=== PATIENT | female | born 1965 | race Caucasian/White ===

== ENCOUNTER → 2017-11-07 | Day surgery (SDC) | payer BC ==
[2017-11-06 12:11] LABS: BASOPHILS % 0.4 % (0.0-1.0); EOSINOPHILS # (AUTO) 0.2 (0.0-0.4); EOSINOPHILS % 2.8 % (0.0-6.0); HEMATOCRIT 40.5 % (34.2-44.1); HEMOGLOBIN 13.1 g/dL (12.0-16.0); LYMPHOCYTES # (AUTO) 0.9 (1.0-3.2); LYMPHOCYTES % 13.7 % (18.0-39.1); MEAN CORPUSCULAR HEMOGLOBIN 28.5 pg (28-32); MEAN CORPUSCULAR HGB CONC 32.3 g/dL (31-35); MEAN CORPUSCULAR VOLUME 88.2 fL (81-99); MONOCYTES # (AUTO) 0.9 (0.2-0.8); MONOCYTES % 13.8 % (4.4-11.3); NEUTROPHILS # (AUTO) 4.7 (2.1-6.9); PLATELET COUNT 319 x10e3/uL (140-360); RED BLOOD COUNT 4.59 x10e6/uL (3.6-5.1); RED CELL DISTRIBUTION WIDTH 14.6 % (11.7-14.4)
[2017-11-06 14:35] LABS: EOSINOPHILS % (MANUAL) 4 % (0-7); HOWELL-JOLLY BODIES FEW; LYMPHOCYTES % (MANUAL) 10 % (19-48); MONOCYTES % (MANUAL) 13 % (3.4-9.0); NEUTROPHILS % (MANUAL) 70 % (40-74); PLATELET ESTIMATE ADEQUATE; PLATELET MORPHOLOGY COMMENT NORMAL; RBC MORPHOLOGY COMMENT NORMAL
[~2017-11-07] MED LIST: AMLODIPINE BESY10 MG PO; AMLODIPINE BESYL5 MG PO; BYSTOLIC10 MG PO; BYSTOLIC20 MG PO; COLESTIPOL HCL1 GM PO; DEXILANT60 MG PO; EFFEXOR XR 3737.5 MG PO; ELESTRIN144 GM; ESGIC PLUS; EVAMIST8.1 ML; FENTANYL CITRATE/PF 100MCG/2 ML INJ ONE; FERRAPLUS 90 T1 EACH PO; FLUTICASONE PRO16 GM; GABAPENTIN100 MG PO; HYOSCYAMINE SULFATE 0.5 MG/ML AMP ONE; HYOSCYAMINE0.125 M2; KLONOPIN0.5 MG PO; LAMOTRIGINE100 MG PO; LAMOTRIGINE200 MG PO; LEVAQUIN500 MG PO; LISINOPRIL10 MG PO; LOMOTIL TABLET1 EACH PO; MELATONIN1 MG PO; METFORMIN HCL850 MG PO; METOPROLOL TART50 MG PO; MIDAZOLAM HCL 2 MG/2 ML VIAL ONE; MONTELUKAST SOD10 MG PO; MULTI-VITAMIN1 EACH PO; NASONEX17 GM; NORVASC5 MG PO; ONDANSETRON HCL8 MG PO; PANTOPRAZOLE SO40 MG PO; PRILOSEC OTC20 MG PO; PRINIVIL20 MG PO; PRO AIR PO; PROPOFOL IV EMULSION 10 MG/ML 20 ML VIAL ONE; RANITIDINE HCL150 M1 PO; SEROQUEL25 MG PO; SEROQUEL50 MG PO; SUCRALFATE1 GM PO; SYNTHROID25 MCG PO; TRAZODONE HCL50 MG PO; TRICOR145 MG PO; TRILIPIX135 MG PO; UNKNOWN BP MED PO; VENLAFAXINE H37.5 M1 PO; VENLAFAXINE HCL75 M1 PO; Z DEPAKOTE PO; Z.0.AMBIEN10 MG; Z.0.ATIVAN0.5 MG PO; Z.0.ATIVAN1 MG PO; Z.0.BENICAR HCT 201; Z.0.CRESTOR20 MG; Z.0.PROZAC20 MG; Z.0.TRILIPIX135 MG; ZOCOR20 MG PO; ZOFRAN ODT4 MG SL
--- NOTE | 2017-11-07 18:00 | Operative Report ---
DATE OF PROCEDURE: November 07, 2017 REFERRING PHYSICIAN: Dr. Sulema Delgado. PROCEDURE PERFORMED: 1. Esophagogastroduodenoscopy with esophageal dilatation and biopsies. 2. Colonoscopy with biopsies. INDICATIONS FOR ESOPHAGOGASTRODUODENOSCOPY: Dysphagia to solids, excessive belching, bloating. INDICATIONS FOR COLONOSCOPY: Colorectal cancer screening, personal history of colon polyps, change of bowel habits, history of bright red blood per rectum. MEDICATION: Patient was done under MAC. Please see anesthesiologist's note. PROCEDURE: With the patient in the left lateral decubitus position, the flexible fiberoptic Olympus gastroscope was introduced into the esophagus under direct visualization without any difficulty. There was some patchy erythema noted in the distal esophagus. There was a mild stricture noted at the GE junction, and that was dilated to size 52-Syriac Yu. An approximately 6 mm ulcerated polypoid lesion was noted in the hiatal hernia sac, and that was biopsied. The scope was then advanced with ease into the stomach, traversing a small sliding hiatal hernia. Mucosa overlying the antrum and the body revealed some diffuse erythema and moderate edema, and biopsies were obtained and sent to stain for H. pylori. Hyperplastic-appearing polyps were noted in the body of the stomach, and some were partially excised with the cold biopsy forceps. An approximately 5 mm peripyloric nodule was noted, and that was biopsied. The pylorus was intubated with ease, and the scope was advanced all the way to the 2nd portion of the duodenum. The scope was then withdrawn slowly. Mucosa overlying the proximal 2nd portion and the duodenal bulb appeared to be within normal limits. The scope was then withdrawn back into the stomach and retroflexed, and the mucosa overlying the fundus and the cardia appeared to be within normal limits. The scope was then straightened out. The stomach was decompressed. The scope was subsequently withdrawn. Patient tolerated the procedure well. IMPRESSION: 1. Distal esophagitis. 2. Esophageal stricture at gastroesophageal junction dilated to size 52-Syriac Yu. 3. Ulcerated polypoid lesion approximately 6 mm in size in the hiatal hernia sac, biopsied. 4. Small hiatal hernia. 5. Gastritis, biopsied. Biopsies sent to stain for H. pylori. 6. Gastric polyps, body, hyperplastic-appearing, some partially excised with the cold biopsy forceps. 7. Peripyloric nodule approximately 5 mm in size, biopsied. PLAN: Follow up histology. Increase Protonix to 1 p.o. a.c. b.i.d. and will consider adding Carafate if patient remains symptomatic. Patient was then turned around and after adequate lubrication of the anal canal, a flexible fiberoptic Olympus colonoscope was inserted into the rectum with ease and advanced all the way to the cecum. The mucosa overlying the cecum, ascending and transverse grossly appeared to be within normal limits. There were some mild patchy inflammatory changes noted in the left colon. Random biopsies were obtained. Similar findings were noted in the rectum, and also biopsies were obtained. The scope was then retroflexed into the distal rectum and moderate-sized internal hemorrhoids were noted, none of which was actively bleeding. The scope was then straightened out. It was subsequently withdrawn, and patient tolerated procedure well. A small rectocele was noted on rectal exam. IMPRESSION: 1. Mild patchy left-sided colitis. 2. Proctitis, mild. 3. Internal hemorrhoids, none actively bleeding. 4. Small rectocele. PLAN: Follow up histology. Initiate Flagyl 500 mg 1 p.o. q.i.d. times 14 days. Start VSL#3 one p.o. b.i.d. Patient might benefit from a followup colonoscopy in 5 years. Job#: [id number] EV cc:SULEMA DELGADO DO
== END | disposition home or self-care (01) ==
LOC: OR 12:45
PROVIDERS: ATTEND Internal Medicine Gastroenterology
DX: K22.2 Esophageal obstruction (principal); K31.7 Polyp of stomach and duodenum; K29.70 Gastritis, unspecified, without bleeding; K25.9 Gastric ulcer, unspecified as acute or chronic, without hemorrhage or perforation; K21.0 Gastro-esophageal reflux disease with esophagitis; K44.9 Diaphragmatic hernia without obstruction or gangrene; K31.89 Other diseases of stomach and duodenum; K51.50 Left sided colitis without complications; K62.89 Other specified diseases of anus and rectum; K64.8 Other hemorrhoids; N81.6 Rectocele; E11.22 Type 2 diabetes mellitus with diabetic chronic kidney disease; I12.9 Hypertensive chronic kidney disease with stage 1 through stage 4 chronic kidney disease, or unspecified chronic kidney disease; N18.9 Chronic kidney disease, unspecified; G47.33 Obstructive sleep apnea (adult) (pediatric); F31.9 Bipolar disorder, unspecified; F41.0 Panic disorder [episodic paroxysmal anxiety]; Z01.810 Encounter for preprocedural cardiovascular examination; Z01.812 Encounter for preprocedural laboratory examination; Z68.27 Body mass index [BMI] 27.0-27.9, adult
CPT/HCPCS: 36415 ×2; 43239; 43450; 45380; 82948; 85025; 93005; J1980; J2250

== ENCOUNTER 2018-03-22 12:06 | Inpatient (IN) | payer BC ==
[~2018-03-22] VITALS: Ht 167.6 cm; Wt 74.8 kg
[~2018-03-22 12:06] MED LIST changes: -FENTANYL CITRATE/PF 100MCG/2 ML INJ ONE; -HYOSCYAMINE SULFATE 0.5 MG/ML AMP ONE; -MIDAZOLAM HCL 2 MG/2 ML VIAL ONE; -PROPOFOL IV EMULSION 10 MG/ML 20 ML VIAL ONE
[2018-03-22] MEDS ORDERED: SODIUM CHLORIDE 0.9% 1000ML 1,000 ML IV STA (12:17)
[2018-03-22] MEDS ORDERED: ASPIRIN 81 MG CHEW TAB PO ONE (12:30)
[2018-03-22 12:38] LABS: BASOPHILS % 0.5 % (0.0-1.0); EOSINOPHILS # (AUTO) 0.2 (0.0-0.4); EOSINOPHILS % 3.2 % (0.0-6.0); HEMATOCRIT 43.4 % (34.2-44.1); HEMOGLOBIN 14.4 g/dL (12.0-16.0); LYMPHOCYTES % 34.4 % (18.0-39.1); MEAN CORPUSCULAR HEMOGLOBIN 28.9 pg (28-32); MEAN CORPUSCULAR HGB CONC 33.2 g/dL (31-35); MEAN CORPUSCULAR VOLUME 87.1 fL (81-99); MONOCYTES # (AUTO) 0.4 (0.2-0.8); MONOCYTES % 7.8 % (4.4-11.3); NEUTROPHILS # (AUTO) 3.1 (2.1-6.9); NEUTROPHILS % 53.7 % (38.7-80.0); PLATELET COUNT 346 x10e3/uL (140-360); RED BLOOD COUNT 4.98 x10e6/uL (3.6-5.1); RED CELL DISTRIBUTION WIDTH 13.1 % (11.7-14.4)
[2018-03-22 12:42] LABS: INR 0.93; PARTIAL THROMBOPLASTIN TIME 29.8 seconds (23.8-35.5); PROTHROMBIN TIME 11.7 seconds (11.9-14.5)
--- NOTE | 2018-03-22 12:44 | Diagnostic Imaging Report ---
PROCEDURE: CHEST SINGLE (PORTABLE) COMPARISON: 06/16/2016. INDICATIONS: HYPERTENSION FINDINGS: The lungs are well-inflated. No focal airspace consolidation, pleural effusion, or pneumothorax. Tortuous thoracic aorta with otherwise normal cardiomediastinal contour when accounting for portable, AP technique. No acute osseous abnormality. CONCLUSION: No acute cardiopulmonary abnormality. Dictated by: Chucky Child M.D. on 03/22/2018 at 12:48 Electronically approved by: Chucky Child M.D. on 03/22/2018 at 12:48
[2018-03-22 12:50] LABS: ALANINE AMINOTRANSFERASE 27 IU/L (0-55); ALBUMIN 4.8 g/dL (3.5-5.0); ALBUMIN/GLOBULIN RATIO 1.1 (0.8-2.0); ALKALINE PHOSPHATASE 179 IU/L (40-150); ANION GAP 16.2 mmol/L (8-16); BLOOD UREA NITROGEN 19 mg/dL (7-26); BUN/CREATININE RATIO 20 (6-25); CARBON DIOXIDE 27 mmol/L (22-29); CHLORIDE 103 mmol/L (98-107); CREATINE KINASE 75 IU/L (29-168); CREATININE, SERUM 0.95 mg/dL (0.57-1.11); EST GLOMERULAR FILTRATION RATE > 60 ML/MIN (60-); GLUCOSE 112 mg/dL (74-118); MAGNESIUM 2.1 MG/DL (1.3-2.1); POTASSIUM 4.2 mmol/L (3.5-5.1); SODIUM 142 mmol/L (136-145)
[2018-03-22] MEDS ORDERED: HYDRALAZINE HCL 20 MG/ML VIAL IV ONE (13:00)
--- NOTE | 2018-03-22 13:14 | Diagnostic Imaging Report ---
Examination: CT BRAIN WITHOUT CONTRAST History:Syncope. Comparison studies:Head CT performed July 06, 2014. Technique: Axial images were obtained from the skull base to the vertex. Coronal and sagittal images reconstructed from the axial data. Intravenous contrast: None Findings: Scalp: No abnormalities. Bones: No fractures, blastic or lytic lesions. Brain sulci: Appropriate for age. Ventricles: Normal in size and configuration. No hydrocephalus. Extra-axial space: No abnormalities. Parenchyma: No abnormal densities. No masses, hemorrhage, or acute or chronic cortical based vascular insults. Sellar/suprasellar region: No abnormalities. Craniocervical junction: Patent foramen magnum. No Chiari one malformation. Incidental findings: Atherosclerotic calcification of the cavernous and supraclinoid internal carotid arteries. Impression: No new or acute intracranial abnormalities. No change from July 06, 2014. Signed by: Dr. Kalyani Enrique M.D. on 03/22/2018 1:10 PM
[2018-03-22 14:25] LABS: BILIRUBIN,URINE NEGATIVE (NEGATIVE); CLARITY,URINE CLEAR (CLEAR); COLOR,URINE YELLOW (YELLOW); KETONES,URINE NEGATIVE (NEGATIVE); LEUKOCYTE ESTERASE ,URINE NEGATIVE (NEGATIVE); NITRITE,URINE NEGATIVE (NEGATIVE); PROTEIN,URINE DIPSTICK 2+ (NEGATIVE); URINE UROBILINOGEN 0.2 mg/dL (0.2 - 1)
[2018-03-22 14:44] LABS: EPITHELIAL CELLS,URINE FEW /LPF; RBC,URINE 0-5 /HPF (0-5)
[2018-03-22 16:06] VITALS: BP 197/93
[2018-03-22] MEDS ORDERED: HYDRALAZINE HCL 25 MG TAB PO PRN (18:00)
[2018-03-22] MEDS: VALSARTAN 160 MG TAB PO SCH (18:40)
[2018-03-22] MEDS: AMLODIPINE BESYLATE 10 MG TAB PO SCH (18:40)
[2018-03-22] MEDS: HYDROCHLOROTHIAZIDE 25 MG TAB PO SCH (18:41)
[2018-03-22 19:45] VITALS: BP 185/96
[2018-03-22 20:41] VITALS: BP 185/96
[2018-03-22] MEDS: ONDANSETRON HCL INJ 2 MG/ML VIAL IV PRN (21:44)
[2018-03-22 22:18] LABS: CREATINE KINASE 71 IU/L (29-168)
--- NOTE | 2018-03-22 23:35 | Consultation ---
DATE OF CONSULTATION: March 22, 2018 CARDIOLOGY CONSULTATION TIME: 5:04 p.m. CHIEF COMPLAINT 1. Dizziness and passing out. 2. High blood pressure. HPI: Ms. Funk is a 52-year-old female that is well known to our service and has seen us in clinic previously. She has had poorly controlled hypertension for a long time as well as several psychiatric disorders which are being treated with medications. She presented today to the office for outpatient chemical nuclear stress test. However, prior to administration of the test, while she was getting her IV placed, patient reported feeling dizzy and having numbness and tingling in her arms and not feeling well in general. Upon further investigation, patient was found to be taking valsartan, losartan, and lisinopril all at once at home for her blood pressure. Her blood pressure at the time was above 200 systolic in the clinic. Given all these findings, patient was sent to the ER for further evaluation and laboratory tests. Today, upon interview, patient says she feels a little bit better. Her dizziness has improved though not completely resolved. She still intermittently has some tingling in her arms. She also reports dry cough which she has had now for several months. She denies any fevers, chills, or any nakita syncopal episodes prior to today. Denies any palpitations, chest pain, or any other cardiac findings at this time. PAST MEDICAL HISTORY 1. Poorly controlled hypertension. 2. Chronic kidney disease. 3. Seizure disorder. 4. Anxiety and depression. PAST SURGICAL HISTORY: No significant past surgical history. FAMILY HISTORY: No family history of early cardiovascular disease or early coronary artery disease. SOCIAL HISTORY: Patient currently denies any smoking, drinking, or illicit drug use. ALLERGIES: PATIENT HAS SEVERAL ALLERGIES INCLUDING BARIUM, SULFA, CIPRO, CODEINE, IODINE, TRAMADOL, LETTUCE AND PEANUT BUTTER. MEDICATIONS: Cardiovascular medications: Patient was noted to be taking valsartan 160 mg daily, losartan 100 mg daily, lisinopril 40 mg daily, Bystolic 5 mg daily, amlodipine 5 mg daily as an outpatient in addition to her psychiatric meds, supplements, and thyroid medications. REVIEW OF SYSTEMS: Complete 10-point review of systems was done and is negative other than what is mentioned in the HPI. PHYSICAL EXAMINATION VITAL SIGNS: Temperature 97.9, heart rate 52, respiratory rate 18, blood pressure 212/111, oxygen saturation 100% on room air. GENERAL: Patient is alert and oriented, in no apparent distress. CARDIOVASCULAR: Regular rate and rhythm. Normal S1 and S2. No murmurs, rubs, or gallops heard. Patient has no bruits bilaterally and has palpable pulses that are equal in bilateral arms as well as legs. There is trace pitting edema at the ankle. ABDOMEN: Soft, nontender, and nondistended. EXTREMITIES: As mentioned previously, there is only trace pitting edema at the ankles and equal and palpable pulses in bilateral wrists as well as bilateral ankles. LABS: White count 5.6, hemoglobin 14.4, and platelet count 346,000. Chemistry: Sodium 142, potassium 4.2, chloride 103 with carbon dioxide of 27, BUN 19, creatinine 0.95, calcium 11, and magnesium 2.1. Total bilirubin 0.5. AST 29, ALT 27, alkaline phosphatase 179. CK 75, CK-MB 1, troponin 0.05. BNP 71.7. Total protein 9, albumin 4.8. IMAGING: A head CT was done which was within normal limits. No acute abnormalities. Chest x-ray showed no significant cardiopulmonary abnormalities. ASSESSMENT 1. Hypertensive urgency. 2. Presyncope. PLAN: Patient has had normal echo done recently in the office and has otherwise normal cardiovascular exam. For her hypertensive urgency, recommend starting the following medications 1. Amlodipine 10 mg daily starting now. 2. Hydrochlorothiazide 25 mg daily starting now. 3. We will continue just valsartan 160 mg daily. Patient is noted to be hypercalcemic to 11 with high alkaline phosphatase and a high protein gap. Consider checking for multiple myeloma and treating the hypercalcemia as the potential underlying cause for her hypertension. Recommend consultation by renal or endocrine to address this issue, but this can be worked up as an outpatient as long as patient's blood pressure is well controlled. Job#: [id number] CF
[2018-03-23 00:44] VITALS: BP 184/86
[2018-03-23] MEDS ORDERED: HYDRALAZINE HCL 20 MG/ML VIAL IV PRN (00:45)
[2018-03-23] MEDS ORDERED: LABETALOL HCL 5 MG/ML 20ML VIAL IV PRN (01:15)
[2018-03-23] MEDS: ONDANSETRON HCL INJ 2 MG/ML VIAL IV PRN ×3 (01:29→23:00)
[2018-03-23 04:15] VITALS: BP 166/73
[2018-03-23 06:14] LABS: BASOPHILS % 0.2 % (0.0-1.0); HEMOGLOBIN 13.9 g/dL (12.0-16.0); LYMPHOCYTES # (AUTO) 1.1 (1.0-3.2); LYMPHOCYTES % 9.7 % (18.0-39.1); MEAN CORPUSCULAR HEMOGLOBIN 29.1 pg (28-32); MEAN CORPUSCULAR HGB CONC 33.1 g/dL (31-35); MEAN CORPUSCULAR VOLUME 87.9 fL (81-99); MONOCYTES # (AUTO) 0.6 (0.2-0.8); MONOCYTES % 5.4 % (4.4-11.3); NEUTROPHILS # (AUTO) 9.1 (2.1-6.9); NEUTROPHILS % 84.4 % (38.7-80.0); PLATELET COUNT 392 x10e3/uL (140-360); RED BLOOD COUNT 4.78 x10e6/uL (3.6-5.1); RED CELL DISTRIBUTION WIDTH 13.4 % (11.7-14.4)
[2018-03-23 06:58] LABS: ALBUMIN 4.3 g/dL (3.5-5.0); ALBUMIN/GLOBULIN RATIO 1.1 (0.8-2.0); ANION GAP 17.4 mmol/L (8-16); CALCIUM 10.5 mg/dL (8.4-10.2); CHOL/HDL RATIO 3.8 (3.0-3.6); CREATININE, SERUM 1.11 mg/dL (0.57-1.11); POTASSIUM 4.4 mmol/L (3.5-5.1)
[2018-03-23] MEDS ORDERED: ACETAMINOPHEN 325 MG TAB PO PRN (07:45)
[2018-03-23 08:07] VITALS: BP 178/86
[2018-03-23] MEDS: VALSARTAN 160 MG TAB PO SCH ×2 (09:05→17:08)
[2018-03-23] MEDS: HYDROCHLOROTHIAZIDE 25 MG TAB PO SCH (09:05)
[2018-03-23] MEDS: ASPIRIN 325 MG TAB EC PO SCH (09:05)
[2018-03-23] MEDS: AMLODIPINE BESYLATE 10 MG TAB PO SCH (09:05)
[2018-03-23 12:06] VITALS: BP 168/97
--- NOTE | 2018-03-23 14:57 | Progress Note ---
DATE: March 23, 2018 CARDIOLOGY PROGRESS NOTE SUBJECTIVE: Patient is awake and alert. Overall, feeling well. Overnight, reports feeling unwell and having an upset stomach. This morning this has improved. She was able to eat her breakfast and lunch without issues. She denies any further chest pain or syncopal episodes overnight. Her blood pressure has improved to 160-170 systolic this morning after taking her medications. PHYSICAL EXAMINATION VITAL SIGNS: Temperature 97.7, pulse 67, respiratory rate 18, blood pressure 168/97, pulse oximetry 100% on room air. GENERAL: Awake and alert, and in no acute distress. CARDIOVASCULAR: Regular rate and rhythm. No murmurs, rubs or gallops. ABDOMEN: Soft, nontender and nondistended. EXTREMITIES: Palpable pulses bilaterally. No significant edema. LABS: Chemistry: Sodium 139, potassium 4.4, chloride 100, CO2 26, BUN 21, creatinine 1.1, glucose 145. Calcium 10.5. CK 117, CK-MB fraction 2 and troponin remains negative at 0.002. Hematology: White blood cell count of 10.7, hemoglobin 13.9 and platelet count is 392,000. MEDICATIONS 1. Aspirin 325 mg daily. 2. Hydrochlorothiazide 25 mg daily. 3. Valsartan 160 mg daily. 4. Amlodipine 10 mg daily. 5. Hydralazine 25 mg p.o. q.6 h. p.r.n. for high blood pressure. 6. Labetalol 10 mg IV q.6 h. p.r.n. for high blood pressure. IMAGING: No new imaging to review today. ASSESSMENT AND PLAN 1. Presyncope. 2. Bradycardia. 3. Hypertensive urgency. 4. Chest pain. PLAN: Overnight, the patient's symptoms have significantly improved. She no longer reports having any presyncopal symptoms. Her head CT was negative. Her blood pressure has improved significantly to 160-170 systolic on her current medical regimen, and should continue to improve once the medications are taken on a regular basis. Discussed options for evaluation of her chest pain with the patient. Patient says that due to her symptoms of feeling very anxious and feeling like she is going to pass out, she does not want to undergo a chemical stress test. She is unable to undergo exercise stress test. Would like to consider cardiac catheterization for evaluation of her chest pain as an outpatient. We will plan to see her in the office for blood pressure check and discussion regarding outpatient cardiac catheterization next week. Patient is agreeable with this plan. From a cardiology standpoint, we are okay to discharge the patient. Job#: [id number] BRYAN
[2018-03-23] MEDS ORDERED: AMLODIPINE BESY10 MG PO (15:53)
[2018-03-23] MEDS ORDERED: HYDROCHLOROTHIA25 MG (15:54)
[2018-03-23] MEDS ORDERED: DIOVAN160 MG PO (15:54)
[2018-03-23 16:14] VITALS: BP 159/74
[2018-03-23] MEDS ORDERED: VALSARTAN 160 MG TAB PO SCH (17:00)
[2018-03-23 20:28] VITALS: BP 179/85
[2018-03-23] MEDS ORDERED: CLONAZEPAM0.5 MG SL (21:36)
[2018-03-23] MEDS ORDERED: LAMOTRIGINE 100 MG TAB PO ONE (23:00)
[2018-03-23] MEDS ORDERED: QUETIAPINE FUMARATE 25 MG TAB PO SCH (23:00)
[2018-03-23] MEDS ORDERED: VENLAFAXINE HCL 37.5MG XR CAP PO ONE (23:30)
[2018-03-24] VITALS (8 sets, daily range): BP systolic 103–179; BP diastolic 54–85
[2018-03-24] MEDS: VALSARTAN 160 MG TAB PO SCH ×2 (09:00→17:00)
[2018-03-24] MEDS ORDERED: VENLAFAXINE HCL 37.5MG XR CAP PO SCH (09:00)
[2018-03-24] MEDS: AMLODIPINE BESYLATE 10 MG TAB PO SCH (09:00)
[2018-03-24] MEDS: ASPIRIN 325 MG TAB EC PO SCH (09:12)
[2018-03-24] MEDS: LAMOTRIGINE 100 MG TAB PO SCH ×2 (09:12→18:03)
[2018-03-24] MEDS: HYDROCHLOROTHIAZIDE 25 MG TAB PO SCH (09:12)
--- NOTE | 2018-03-24 13:59 | Progress Note ---
DATE: March 24, 2018 CARDIOLOGY PROGRESS NOTE SUBJECTIVE AND OVERNIGHT EVENTS: The patient requested to stay in the hospital 1 more day due to her abdominal discomfort and just overall feeling unwell, as well as some neurological symptoms. Overnight, she did well with no major events. Has no major complaints this morning, and says she is feeling much better and is ready to go home today. She denies having any further chest pain, presyncope or dizziness this morning. REVIEW OF SYSTEMS: As above, otherwise negative. PHYSICAL EXAMINATION VITAL SIGNS: Temperature 96.5, pulse rate 59, respiratory rate 18, blood pressure 125/60 with oxygen saturation of 97% on room air. GENERAL: She is well-developed, well-nourished, obese. CARDIOVASCULAR: She has a normal nondisplaced PMI. Regular S1 and S2. No murmurs, rubs or gallops. She has normal bilateral carotid pulses. Palpable femoral pulses. Palpable pedal pulses. No significant peripheral edema or varicosities. RESPIRATORY: She is in no respiratory distress. Her lungs are clear to auscultation bilaterally. ABDOMEN: Soft, nontender and nondistended. There are no masses or hepatosplenomegaly. NEURO/PSYCH: The patient is alert and oriented to person, place and time, and displays a normal affect. CARDIOVASCULAR MEDICATIONS 1. Aspirin 81 mg daily. 2. Valsartan 160 mg twice a day. 3. Hydrochlorothiazide 25 mg daily. 4. Amlodipine 10 mg daily. LAB DATA: There is no new lab data to review today. IMAGING: No new imaging data to review today. Telemetry is normal sinus rhythm with no new telemetry findings today. ASSESSMENT AND PLAN 1. Presyncope. 2. Bradycardia. 3. Hypertensive urgency. 4. Chest pain. PLAN: Her blood pressure is now much better controlled on the current regimen. She is essentially normotensive. Her chest pain has also resolved, and her presyncope and bradycardia have also improved. At this time, we do not recommend any further cardiac workup. From a cardiology perspective, the patient is ready to be discharged on the following medical regimen: 1. Aspirin 81 mg daily. 2. Atorvastatin 40 mg at bedtime. 3. Amlodipine 10 mg daily. 4. Diovan 160 mg twice a day. 5. Hydrochlorothiazide 25 mg daily. The patient understands that she is to call the clinic to make a followup appointment for 1 week after her discharge at which point her blood pressure will be evaluated, as well as her chest pain will be evaluated. She will be scheduled for outpatient coronary angiography if deemed necessary. Job#: [id number] RBYAN
--- NOTE | 2018-03-24 15:24 | Consultation ---
DATE OF CONSULTATION: March 24, 2018 NEUROLOGY CONSULTATION HISTORY OF PRESENT ILLNESS: Ms. Funk is a 52-year-old, myixd-[id number]-yghtptqo woman with past medical history significant for hypertension, hyperlipidemia, COPD, and bipolar disorder, admitted to [facility] on March 23, 2018, following a witnessed syncopal event. Ms. Funk endorses multiple syncopal events over the past several years. The patient states the syncopal events are preceded by chest tightness, shortness of breath, and dizziness which is further described as lightheadedness. Afterwards the patient experiences generalized weakness. Before falling to the ground, someone will "catch" the patient and help her to a chair, a couch, etc. It is questionable whether there is loss of consciousness with these episodes. Ms. Funk reports difficulty keeping her eyes open during these episodes. Time to return to the patient's neurological baseline is unknown. There has never been witnessed shaking or stiffening of the extremities. There has never been witnessed tongue biting or bladder/bowel incontinence. The patient does not endorse a personal history of febrile or other seizures. There is no known family history of seizure disorders. The patient reports multiple falls resulting in head injuries. It is unclear whether the patient has lost consciousness with any of these injuries. There is no known prior history of meningitis or encephalitis. REVIEW OF SYSTEMS: Chest tightness, shortness of breath, lightheadedness, generalized weakness. Otherwise, the 12-point review of systems is negative. PAST MEDICAL HISTORY: Hypertension, hyperlipidemia, chronic bronchitis, COPD, peptic ulcer disease, bipolar disorder, history of pancreatitis. PAST SURGICAL HISTORY: Bilateral knee arthroscopy, right carpal tunnel release, total hysterectomy, bladder suspension, cholecystectomy, appendectomy, D and C times 2. PAST HOSPITALIZATIONS: Surgeries/procedures as listed, pancreatitis, toxic shock syndrome, inpatient psychiatric admission times 3, childbirth times 2. FAMILY HISTORY: Patient's paternal and maternal grandparents are . Their medical histories are unknown. Patient's father is alive. He has coronary artery disease. The patient's mother is . Her medical history is unknown. However, it is suspected the patient's mother had bipolar disorder. It is suspected the patient's maternal grandmother and maternal great-grandmother had bipolar disorder as well. The patient has one brother who is alive. He has asthma and an undiagnosed psychiatric disorder. Ms. Funk has 2 children, both daughters. Both are alive. The eldest daughter is healthy. The youngest daughter has bipolar disorder. SOCIAL HISTORY: The patient is . She graduated high school and attended some college. 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 Patient does not report current or prior tobacco, alcohol, or recreational drug use. HOME MEDICATIONS 1. Amlodipine 10 mg by mouth daily. 2. Clonazepam 0.25 mg sublingually at bedtime. 3. Klonopin 0.5 mg by mouth twice daily. 4. Colestipol 1 g by mouth daily. 5. Evamist 2 sprays intranasally daily. 6. Fluticasone 2 sprays intranasally daily. 7. Hydrochlorothiazide 25 mg by mouth daily. 8. Ferraplus 1 tablet by mouth daily. 9. Lamotrigine 200 mg by mouth twice daily. 10. Synthroid 25 mcg by mouth daily. 11. Lisinopril 40 mg by mouth daily. 12. Montelukast sodium 10 mg by mouth daily. 13. Multivitamin 1 tablet by mouth daily. 14. Protonix 40 mg by mouth daily. 15. Seroquel 50 mg by mouth at bedtime daily. 16. Ranitidine 150 mg by mouth twice daily. 17. Simvastatin 20 mg by mouth at bedtime daily. 18. Valsartan 160 mg by mouth twice daily. 19. Venlafaxine 37.5 mg by mouth daily. ALLERGIES: SULFA, BARIUM, CIPROFLOXACIN, CODEINE, TRAMADOL. FOOD ALLERGIES INCLUDE ICEBERG LETTUCE AND PEANUT BUTTER. NO KNOWN ALLERGY TO LATEX. PATIENT HAS A DOCUMENTED ALLERGY TO IODINE. PHYSICAL EXAMINATION VITAL SIGNS: Height 66 inches, weight 165 pounds, BMI 26.6 kg per meter squared. Blood pressure 125/60 mmHg, pulse 59 beats per minute, respiratory rate 18 breaths per minute, oxygen saturation 97% on room air. GENERAL: The patient is awake and alert, does not appear distressed. HEENT: Normocephalic, atraumatic. Pupils are equal, round and reactive to light. Moist mucous membranes. NECK: Supple. No appreciable thyromegaly. No appreciable carotid bruits. CARDIOVASCULAR: S1 and S2, regular rate and rhythm. No murmurs, rubs or gallops. RESPIRATORY: Clear to auscultation bilaterally. No wheezes, rhonchi or rales. EXTREMITIES: The skin is warm and dry. No clubbing, cyanosis, or edema. The posterior tibial and dorsalis pedis pulses are 2+ and symmetric. SKIN: No rashes or lesions. NEUROLOGIC MEMORY/ATTENTION: The patient is awake and alert, oriented to person, place, time, and situation. CRANIAL NERVES: Cranial nerve I: Not tested. Cranial nerves II, III, IV, and : Pupils are equal and round, react briskly to light (from 4 mm to 2 mm). Extraocular movements are intact. No nystagmus. Cranial nerve V: Sensation to light touch and pinprick is intact in the bilateral V1 through V3 distributions. Strength of the temporalis and masseter muscles is within normal limits. Cranial nerve VII: The face is symmetric as are all facial movements. Strength is within normal limits. Cranial nerve VIII: Hearing is intact to finger rub bilaterally. Cranial nerves IX and X: The soft palate elevates equally and symmetrically. Cranial nerve XI: Normal strength of the bilateral sternocleidomastoid and trapezius muscles. Cranial nerve XII: The tongue protrudes midline and moves symmetrically from side to side. STRENGTH: Bulk is normal. Strength is 5/5 in the bilateral deltoids, biceps, triceps, wrist flexors and extensors, finger flexors and extensors, intrinsic hand muscles, hip flexors, knee flexors and extensors, ankle dorsiflexion and plantar flexion, and intrinsic foot muscles. Tone is normal. DTRs: Deep tendon reflexes are 2+ and symmetric at the triceps biceps, brachioradialis, patellas and Achilles. Plantar responses are flexor bilaterally. SENSATION: Sensation is intact to light touch and pinprick in both arms and both legs. CEREBELLAR: Xzwjmq-arus-neeqjo and heel-workman movements are intact without dysmetria or other impairment. GAIT: Deferred. SPEECH: Spontaneous speech is normal without appreciable dysarthria or aphasia. Repetition is intact. INVOLUNTARY MOVEMENTS: None. PRONATOR DRIFT: None. LABORATORY DATA: Sodium 139, potassium 4.4, chloride 100, carbon dioxide 26, anion gap 17.4. BUN 21, creatinine 1.11, estimated GFR 52. IVD-tn-nwfwxulgkg ratio 19, glucose 145, calcium 10.5. Total bilirubin 0.6, AST 30, ALT 26, alkaline phosphatase 151. Total protein 8.1, albumin 4.3, globulin 3.8, yejmbnv-db-hzznzngg ratio 1.1. Creatine kinase 75, 71, 117. CK-MB 1.00, 1.00, 2.00. Troponin I 0.005, less than 0.001 and 0.002. B-type natriuretic peptide 71.7. Total cholesterol 221, triglycerides 171, LDL cholesterol 129, HDL cholesterol 58. The CBC with differential and platelets reveals a white blood cell count of 10.79 with 84.4% neutrophils, 9.7% lymphocytes, 5.4% monocytes, 0.0% eosinophils and 0.2% basophils. Hemoglobin and hematocrit are 13.9 and 42.0, respectively. Platelet count is 392. PT 11.7, INR 0.93, PTT 29.8. A urinalysis performed on March 22, 2018, was significant for 2+ protein and trace blood. DIAGNOSTIC STUDIES 1. Chest x-ray 03/22/2018: No acute cardiopulmonary abnormality. 2. CT of the brain without contrast, 03/22/2018: On my review, there is no evidence of recent large territorial ischemia, hemorrhage, mass, or mass effect. ASSESSMENT AND PLAN: Ms. Funk is a 52-year-old, risph-khmn-ayvqetsc woman with past medical history as documented, admitted following a syncopal episode. The patient has experienced multiple syncopal episodes previously. At present, her neurological examination is nonfocal. Her laboratory data and other diagnostic studies have been reviewed and are documented above. There is low suspicion for a neurological etiology of the patient's syncopal episodes. No further neurological evaluation is recommended. From my standpoint, the patient may be discharged to home. Thank you for this consultation. Time spent: 70 minutes. Job#: [id number] LANI WRAY
== END 2018-03-24 18:34 | disposition home or self-care (01) | DRG 312 ==
LOC: ER 12:06 → ERHOLD 15:36 → IMCU 16:03 → OBSVTOIN 03-23 14:50 → MED/SURG3 03-23 19:14 → IMCU 03-23 19:27 → MED/SURG3 03-23 20:07
DX: R55 Syncope and collapse (principal); K21.9 Gastro-esophageal reflux disease without esophagitis; R07.9 Chest pain, unspecified; I16.0 Hypertensive urgency; E83.52 Hypercalcemia; I12.9 Hypertensive chronic kidney disease with stage 1 through stage 4 chronic kidney disease, or unspecified chronic kidney disease; N18.9 Chronic kidney disease, unspecified; G40.909 Epilepsy, unspecified, not intractable, without status epilepticus; E78.5 Hyperlipidemia, unspecified; Z88.5 Allergy status to narcotic agent; Z91.018 Allergy to other foods; Z88.2 Allergy status to sulfonamides; Z91.048 Other nonmedicinal substance allergy status; F31.9 Bipolar disorder, unspecified
CPT/HCPCS: 36415; 70450; 71045; 80053; 80061; 81001; 82550; 82553; 83735; 83880; 84484; 85025; 85610; 85730; 93005; 97139; 99284; G0378; J0360; J2405; J7030

== ENCOUNTER → 2018-03-31 | Day surgery (SDC) | payer BC ==
[2018-03-30 15:41] LABS: BASOPHILS % 0.6 % (0.0-1.0); EOSINOPHILS # (AUTO) 0.2 (0.0-0.4); EOSINOPHILS % 3.4 % (0.0-6.0); HEMATOCRIT 40.6 % (34.2-44.1); HEMOGLOBIN 13.3 g/dL (12.0-16.0); LYMPHOCYTES # (AUTO) 2.2 (1.0-3.2); LYMPHOCYTES % 34.3 % (18.0-39.1); MEAN CORPUSCULAR HGB CONC 32.8 g/dL (31-35); MEAN CORPUSCULAR VOLUME 88.5 fL (81-99); MONOCYTES # (AUTO) 0.6 (0.2-0.8); MONOCYTES % 9.2 % (4.4-11.3); NEUTROPHILS # (AUTO) 3.3 (2.1-6.9); NEUTROPHILS % 52.2 % (38.7-80.0); PLATELET COUNT 391 x10e3/uL (140-360); RED BLOOD COUNT 4.59 x10e6/uL (3.6-5.1); RED CELL DISTRIBUTION WIDTH 13.1 % (11.7-14.4)
[2018-03-30 15:50] LABS: INR 0.97; PROTHROMBIN TIME 12.1 seconds (11.9-14.5)
[2018-03-30 15:57] LABS: ALBUMIN 4.7 g/dL (3.5-5.0); ALBUMIN/GLOBULIN RATIO 1.3 (0.8-2.0); ANION GAP 13.8 mmol/L (8-16); CALCIUM 10.5 mg/dL (8.4-10.2); CREATININE, SERUM 1.02 mg/dL (0.57-1.11); POTASSIUM 3.8 mmol/L (3.5-5.1)
[~2018-03-31] VITALS: Ht 167.6 cm; Wt 77.1 kg
[2018-03-31] VITALS (8 sets, daily range): BP systolic 162–181; BP diastolic 85–97
[~2018-03-31] MED LIST changes: +ALPRAZOLAM 0.5 MG TAB ONE; +CLONAZEPAM0.5 MG SL; +DIOVAN160 MG PO; +DIPHENHYDRAMINE HCL 25 MG CAP ONE; +FENTANYL CITRATE/PF 100MCG/2 ML INJ ONE; +HEPARIN SOD (PORCINE) 1000 UNIT/ML 30ML ONE; +HEPARIN SOD/SOD CHLORIDE 2,000 ML ONE; +HYDROCHLOROTHIA25 MG; +IOPAMIDOL 370 MG/ML 200 ML INFUS..BTL INJ ONE; +LIDOCAINE HCL 2% LOCAL 20 ML VIAL ONE; +METHYLPREDNISOLONE SOD SUCC 125 MG/2ML VIAL ONE; +MIDAZOLAM HCL 2 MG/2 ML VIAL ONE; +NITROGLYCERIN/D5W 200 MCG/ML 250 ML ONE; +SODIUM CHLORIDE 0.9% 1000ML 1,000 ML ONE; +VERAPAMIL HCL 2.5 MG/ML 2 ML VIAL ONE
--- NOTE | 2018-03-31 09:29 | Operative Report ---
DATE OF PROCEDURE: March 31, 2018 PROCEDURE: Cardiac catheterization. INDICATIONS FOR THE PROCEDURE: Chest pain. PRESEDATION ASSESSMENT: Medical history, social history and previous experience with anesthesia were reviewed and documented in the preoperative medical record. Results of relevant diagnostic studies were reviewed. Planned choice of anesthesia, risks, complications, benefits, and alternatives were discussed. The patient was deemed an appropriate candidate for planned choice of anesthesia. CONSENT: The benefits, risks, complications and alternatives to the procedure were discussed with the patient, and informed consent was obtained from the patient or their surrogate. MEDICATIONS: Please see nursing notes for medications administered during the procedure. PROCEDURE: The patient was brought to the cardiac catheterization laboratory in a fasting state. The right wrist was prepped and draped in a sterile fashion. One percent lidocaine was used to infiltrate the right wrist over the radial artery. A 5-Cymraes sheath was placed in the right radial artery using the Seldinger technique. Coronary angiography was performed using a 5-Cymraes Ersato preformed catheter to engage both the RCA and the LCA. Multiple orthogonal views were obtained of each coronary artery. A 5-Cymraes angled pigtail catheter was used to cross the aortic valve and perform a left heart catheterization. All catheters were removed over a guidewire. The access site was closed using a TR Band. The case ended without any complication. Estimated blood loss was approximately 20 mL. FINDINGS 1. Left main: Large caliber, normal. 2. LAD: Large vessel, wraps around the apex and supplies part of the inferior wall. Several large diagonals. No significant coronary artery disease. 3. Left circumflex: Nondominant vessel. Two significant OM branches. Luminal irregularities without significant coronary artery disease. 4. RCA: Very large, dominant RCA. Small RPDA system and a very large RPL system. No significant coronary artery disease. 5. LV end-diastolic pressure 22 mmHg. COMPLICATIONS: None. SPECIMENS REMOVED: None. IMPLANTS: None. ESTIMATED BLOOD LOSS: 20 mL. RECOMMENDATIONS 1. Usual post-PCI care until the TR Band removal. 2. Continue optimal medical therapy and risk factor control. 3. Call the office for follow up 2 weeks post procedure. Job#: [id number]
== END | disposition home or self-care (01) ==
LOC: CATH LAB 06:13
PROVIDERS: ATTEND Internal Medicine
DX: I25.10 Atherosclerotic heart disease of native coronary artery without angina pectoris (principal); I13.11 Hypertensive heart and chronic kidney disease without heart failure, with stage 5 chronic kidney disease, or end stage renal disease; N18.6 End stage renal disease; G47.33 Obstructive sleep apnea (adult) (pediatric); E78.4 Other hyperlipidemia; Z01.812 Encounter for preprocedural laboratory examination
CPT/HCPCS: 36415; 80053; 85025; 85610; 93458; J1644; J2001; J2250; J2930; J7030; Q9967

== ENCOUNTER 2018-07-18 10:24 | Emergency (ER) | payer BC ==
[~2018-07-18] VITALS: Ht 167.6 cm; Wt 79.4 kg
[~2018-07-18 10:24] MED LIST changes: -ALPRAZOLAM 0.5 MG TAB ONE; -DIPHENHYDRAMINE HCL 25 MG CAP ONE; -FENTANYL CITRATE/PF 100MCG/2 ML INJ ONE; -HEPARIN SOD (PORCINE) 1000 UNIT/ML 30ML ONE; -HEPARIN SOD/SOD CHLORIDE 2,000 ML ONE; -IOPAMIDOL 370 MG/ML 200 ML INFUS..BTL INJ ONE; -LIDOCAINE HCL 2% LOCAL 20 ML VIAL ONE; -METHYLPREDNISOLONE SOD SUCC 125 MG/2ML VIAL ONE; -MIDAZOLAM HCL 2 MG/2 ML VIAL ONE; -NITROGLYCERIN/D5W 200 MCG/ML 250 ML ONE; -SODIUM CHLORIDE 0.9% 1000ML 1,000 ML ONE; -VERAPAMIL HCL 2.5 MG/ML 2 ML VIAL ONE
--- OUTSIDE RECORDS SUMMARY | 2018-07-18 10:28 | XMS REPORT | Clinical Summary ---
Author Author [facility] Organization [facility] Address Unknown Phone Unavailable Care Team Providers Care Service Rig Operator Name Role Phone System, Provider Not In MD PCP Unavailable Allergies Not on File Current Medications Not on file Active Problems Not on file Encounters Date Type Specialty Care Team Description 07/16/2018 Transcribe Access Jeni Gabriel, Abnormal finding on Orders breast imaging (Primary Dx) 07/14/2018 Hospital Radiology Jeni Gabriel, Lump of right breast; Encounter MD Lump of left breast; Nipple discharge 07/06/2018 Procedure Pass Radiology 07/06/2018 Transcribe Access Jeni Gabriel, Lump of right breast Orders (Primary Dx); Lump of left breast; Nipple discharge 06/29/2018 Hospital Radiology Jeni Gabriel, Encounter 06/29/2018 Hospital Radiology Jeni Gabriel, Encounter 06/29/2018 Hospital Radiology Jeni Gabriel, Encounter MD 06/29/2018 Hospital Radiology Jeni Gabriel, Encounter 06/29/2018 Ancillary Radiology Jeni Gabriel, Orders 05/31/2018 Hospital Radiology Jeni Gabriel, Encounter 05/31/2018 Hospital Radiology Jeni Gabriel, Encounter 05/31/2018 Hospital Radiology Jeni Gabriel, Encounter 05/31/2018 Hospital Radiology Jeni Gabriel, Encounter 05/31/2018 Hospital Radiology Jeni Gabriel, Encounter MD 05/31/2018 Hospital Radiology Jeni Gabriel, Encounter MD 05/31/2018 Hospital Radiology Jeni Gabriel, Encounter 05/31/2018 Procedure Pass Radiology 05/31/2018 Ancillary Radiology Jeni Gabriel Orders MD 05/31/2018 Transcribe Access Jeni Gabriel Orders MD after 07/17/2017 Social History Tobacco Use Types Packs/Day Years Used Date Never Assessed Sex Assigned at Date Recorded Not on file Last Filed Vital Signs Vital Sign Reading Time Taken Blood Pressure - - Pulse - - Temperature - - Respiratory Rate - - Oxygen Saturation - - Inhaled Oxygen - - Concentration Weight 79.4 kg (175 lb) 07/14/2018 7:00 AM CDT Height - - Body Mass Index - - Plan of Treatment Date Type Specialty Care Team Description 07/16/2018 Procedure Pass Access 07/19/2018 Appointment Radiology Jeni Gabriel MD [address] [place] [address] [address] [place] [address] [phone] 07/19/2018 Appointment Radiology Jeni Gabriel MD [address] [place] [address] [address] [place] [address] [phone] 07/23/2018 Appointment Radiology Jeni Gabriel MD [address] [facility] [address] [place] [address] [phone] Health Maintenance Due Date Last Done Comments CERVICAL CANCER SCREENING 1986 BREAST CANCER SCREENING 2015 COLON CANCER SCREENING 2015 SHINGRIX VACCINE (#1) 2015 INFLUENZA VACCINE 04/21/2018 09/21/2017 Procedures Procedure Name Priority Date/Time Associated Diagnosis Comments MRI BREAST W WO CONTRAST Routine 07/14/2018 Lump of right breast Results for this BILATERAL 9:37 AM CDT Lump of left breast procedure are in the Nipple discharge results section. ESTIMATED GFR Routine 07/14/2018 Results for this 8:00 AM CDT procedure are in the results section. POC CREATININE Routine 07/14/2018 Results for this 8:00 AM CDT procedure are in the results section. MAMMO EXTERNAL STUDY Routine 03/29/2018 Results for this 3:02 PM CDT procedure are in the results section. MAMMO EXTERNAL STUDY Routine 02/10/2018 Results for this 3:02 PM CDT procedure are in the results section. US BREAST EXTERNAL STUDY Routine 02/10/2018 Results for this 3:02 PM CDT procedure are in the results section. US BREAST EXTERNAL STUDY Routine 02/02/2018 Results for this 3:02 PM CDT procedure are in the results section. MAMMO EXTERNAL STUDY Routine 02/02/2018 Results for this 3:01 PM CDT procedure are in the results section. US BREAST EXTERNAL STUDY Routine 09/29/2017 Results for this 3:01 PM HAT LINING BLOCKER procedure are in the results section. MRI BREAST EXTERNAL STUDY Routine 08/12/2017 Results for this 3:03 PM HAT LINING BLOCKER procedure are in the results section. after 07/17/2017 Results * MRI Breast W Wo Contrast Bilateral (07/14/2018 9:37 AM) Narrative Performed At FULL RESULT: [facility] Examination: MRI BREAST W WO CONTRAST BILATERAL, 07/14/2018 8:23 AM Clinical History: A 53-year-old woman with right nipple discharge and a tender area of palpable concern in the left breast. The patient has a history of previous benign right breast biopsies. Indication:Palpable abnormality. Nipple discharge. Comparison: Outside MRI dated 08/12/2017 performed at [facility].. Mammogram dated 02/02/2018 performed at [facility] in [place], [place]. Bilateral breast ultrasound dated 02/02/2018 performed at [facility] in [place], [place] Technique: Multiplanar, multisequence bilateral breast MRI was performed prior to and following the uneventful intravenous administration of 8 cc of Gadavist contrast. Computer aided detection was utilized.The perfusion data was used to create kinetic contrast enhancement curves. The study included axial T-1, T-2, VIBRANT, delayed sagittal VIBRANT, and both axial and sagittal MIP's. Findings: The breast composition is heterogeneous fibroglandular tissue. There is minimal early background parenchymal enhancement. Right breast: No new suspicious masses or nonmass enhancement. The dermal enhancement previously seen in the upper inner right breast is not appreciated on today's examination. In the posterior right 1 to 2 o'clock position 7 cm from the nipple, there is a persistent 0.9 cm area of linear nonmass enhancement demonstrating progressive enhancement kinetics which is stable in appearance compared to previous outside MRI (series 7 image 196 and series 8 image 285). A persistent peripherally enhancing 0.5 cm T2 hyperintense mass is again seen in the right 11 to 12 o'clock position 5 cm from the nipple which is decreased in size compared to prior examination where it measured 0.8 cm in maximal dimension and likely corresponds to a benign-appearing area of fibrocystic change seen on outside outside ultrasound performed January 2015 (series 7 image 191). In the right 9 o'clock position 6 cm from the nipple, there is a stable subcentimeter enhancing mass with new associated clip artifact corresponding to the site of benign outside ultrasound-guided biopsy yielding a benign intramammary lymph node. In the posterior right upper outer quadrant 10 o'clock position 9 cm from the nipple, there is a persistent oval mass with associated clip artifact measuring 0.7 cm in maximal dimension, previously 1 cm, corresponding to the site of previous benign biopsy (series 7 image 201 and series 8 image 207). Left breast: In the left upper outer quadrant 1 to 2 o'clock position 6 cm from the nipple, there is a new 0.4 cm irregular enhancing mass demonstrating plateau enhancement kinetics (series 7 image 184 and 7 series 8 image 114). Amena Basins: There is no pathologic appearing adenopathy in the visualized axillary or internal mammary regions. Extramammary findings: The heart appears symmetrically prominent however this may be exaggerated by patient positioning. IMPRESSION: 1. New suspicious subcentimeter enhancing mass in the upper outer left breast. Recommend second look ultrasound with possible biopsy as indicated. If there is no suspicious sonographic correlate, MR guided biopsy is recommended. 2. Stable MR findings in the right breast as above. The nonmass enhancement seen in the upper inner right breast on outside MRI performed July 2017 is stable however given linear distribution and history of persistent bloody nipple discharge, MR guided biopsy is recommended for tissue diagnosis. 3. No pathologic appearing regional adenopathy in the visualized amena basins. 4. Possible cardiomegaly. Recommend clinical correlation and additional cardiac evaluation as indicated. ACR BI-RADS Category: 4. Recommend MR guided biopsy of the right breast and a second look ultrasound with possible biopsy of the left breast. If there is no suspicious sonographic correlate, MR guided biopsy of the left breast is recommended (Please note the MR guided biopsies cannot be performed on the same date due to lesion location, however the right MR guided biopsy and left breast second look ultrasound can potentially be performed on the same date if desired. [id number] [facility] Organization Address City/State/Zipcode Phone Number [facility] [address] [place] [address] * Estimated GFR (07/14/2018 8:00 AM) Estimated GFR 51 (A) mL/min/1.73 m2 [facility] DEPARTMENT OF Comment: PATHOLOGY AND [employer]ory[employer]itsInte GENOMIC MEDICINE rpretation G1 >=90 Normal or high G2 60-89Mildly decreased [id number] Mildly to moderately decreased [id number] Moderately to severely decreased G4 15-29Severely decreased G5 <15Kidney failure The eGFR was calculated using the Chronic Kidney Disease Epidemiology Collaboration (CKD-EPI) equation. Interpretation is based on recommendations of the National Kidney Foundation-Kidney Disease Outcomes Quality Initiative (NKF-KDOQI) published in 2014. Specimen Blood Performing Organization Address [facility] Phone Number [address] [place] [address] PATHOLOGY AND GENOMIC MEDICINE * POC creatinine (07/14/2018 8:00 AM) POC creatinine 1.2 (H) 0.5 - 0.9 mg/dl [facility] DEPARTMENT OF PATHOLOGY AND GENOMIC MEDICINE Specimen Blood Performing Organization Address [facility] Phone Number [address] [place] [address] PATHOLOGY AND GENOMIC MEDICINE * Mammo External Study (03/29/2018 3:02 PM) Only the most recent of 3 results within the time period is included. Narrative Performed At This exam was not acquired at a [facility] facility and has not been [facility] interpreted by a [facility] Provider.The exam was imported into our imaging system for comparisons purposes. Performing Organization Address City/[facility] Phone Number [facility] [address] [place] [address] * US Breast External Study (02/10/2018 3:02 PM) Only the most recent of 3 results within the time period is included. Narrative Performed At This exam was not acquired at a [facility] facility and has not been [facility] interpreted by a [facility] Provider.The exam was imported into our imaging system for comparisons purposes. Performing Organization Address City/[facility]/Zipcode Phone Number [facility] [address] [place] [address] * MRI Breast External Study (08/12/2017 3:03 PM) Narrative Performed At This exam was not acquired at a [facility] facility and has not been [facility] interpreted by a [facility] Provider.The exam was imported into our imaging system for comparisons purposes. Performing Organization Address City/State/Zipcode Phone Number [facility] [address] [place] [address] after 07/17/2017 Insurance Payer Benefit Subscriber ID Type Phone Address Plan / Group BCBS SARI xxxxxxxxxxxx PPO BLUE CROSS
[2018-07-18] MEDS ORDERED: SODIUM CHLORIDE 0.9% 1000ML 1,000 ML IV STA (10:46)
[2018-07-18] MEDS ORDERED: MORPHINE SULFATE INJ 4 MG/ML INJ IV STA (10:46)
[2018-07-18 11:19] LABS: BASOPHILS % 0.4 % (0.0-1.0); EOSINOPHILS # (AUTO) 0.2 (0.0-0.4); EOSINOPHILS % 2.5 % (0.0-6.0); HEMOGLOBIN 13.9 g/dL (12.0-16.0); LYMPHOCYTES # (AUTO) 1.5 (1.0-3.2); MEAN CORPUSCULAR HEMOGLOBIN 30.2 pg (28-32); MEAN CORPUSCULAR HGB CONC 33.1 g/dL (31-35); MEAN CORPUSCULAR VOLUME 91.1 fL (81-99); MONOCYTES # (AUTO) 0.6 (0.2-0.8); MONOCYTES % 8.7 % (4.4-11.3); NEUTROPHILS # (AUTO) 4.4 (2.1-6.9); NEUTROPHILS % 65.7 % (38.7-80.0); PLATELET COUNT 341 x10e3/uL (140-360); RED BLOOD COUNT 4.61 x10e6/uL (3.6-5.1); RED CELL DISTRIBUTION WIDTH 13.7 % (11.7-14.4)
[2018-07-18 11:23] LABS: INR 0.82; PROTHROMBIN TIME 12.1 seconds (11.9-14.5)
[2018-07-18 11:24] LABS: PARTIAL THROMBOPLASTIN TIME 33.4 seconds (23.8-35.5)
[2018-07-18] MEDS ORDERED: ONDANSETRON HCL INJ 2 MG/ML VIAL IV ONE (11:30)
[2018-07-18 11:33] LABS: ALANINE AMINOTRANSFERASE 24 IU/L (0-55); ALBUMIN 4.4 g/dL (3.5-5.0); ALBUMIN/GLOBULIN RATIO 1.3 (0.8-2.0); ALKALINE PHOSPHATASE 160 IU/L (40-150); ANION GAP 15.9 mmol/L (8-16); BLOOD UREA NITROGEN 26 mg/dL (7-26); BUN/CREATININE RATIO 20 (6-25); CALCIUM 10.1 mg/dL (8.4-10.2); CARBON DIOXIDE 25 mmol/L (22-29); CHLORIDE 102 mmol/L (98-107); CREATINE KINASE 136 IU/L (29-168); CREATININE, SERUM 1.27 mg/dL (0.57-1.11); EST GLOMERULAR FILTRATION RATE 44 ML/MIN (60-); GLUCOSE 137 mg/dL (74-118); POTASSIUM 3.9 mmol/L (3.5-5.1); SODIUM 139 mmol/L (136-145)
[2018-07-18 11:39] LABS: CLARITY,URINE CLEAR (CLEAR); COLOR,URINE YELLOW (YELLOW); LEUKOCYTE ESTERASE ,URINE 1+ (NEGATIVE); NITRITE,URINE NEGATIVE (NEGATIVE); PROTEIN,URINE DIPSTICK TRACE (NEGATIVE)
[2018-07-18 11:40] LABS: BILIRUBIN,URINE NEGATIVE (NEGATIVE); KETONES,URINE NEGATIVE (NEGATIVE); URINE UROBILINOGEN 0.2 mg/dL (0.2 - 1)
[2018-07-18] MEDS ORDERED: KLONOPIN0.5 MG PO (11:41)
[2018-07-18 11:47] LABS: BACTERIA,URINE FEW /HPF; EPITHELIAL CELLS,URINE MODERATE /LPF; RBC,URINE 0-5 /HPF (0-5); WBC,URINE (MAN) 0-5 /HPF (0-5)
--- NOTE | 2018-07-18 11:58 | Diagnostic Imaging Report ---
Exam: Noncontrast Head CT History: 53-year-old female with increased blood pressure, headache and dizziness beginning today Comparison studies: Head CT from 03/22/2018 Technique: Axial images were obtained from the skull base to the vertex. Coronal and sagittal reconstructions obtained from the axial data. Dose modulation, iterative reconstruction, and/or weight based adjustment of the mA/kV was utilized to reduce the radiation dose to as low as reasonably achievable. Findings: Scalp/skull: No abnormalities. No fractures, blastic or lytic lesions. Extra-axial spaces: No masses. No fluid collections. Brain sulci: Appropriate for age. Ventricles: Normal in size and configuration. No hydrocephalus. Parenchyma: No abnormal densities. No masses, hemorrhage, acute or chronic cortical vascular insults. Sellar/suprasellar region: No abnormalities Craniocervical junction: Patent foramen magnum. No Chiari one malformation. IMPRESSION: 1. No abnormalities. 2. No changes when compared to the most recent head CT on 04-[address] (by reports) that date back to 12/12/2008. Preliminary report dictated by Dr. Rohini Mckoy, Neuroradiology Fellow. A final report by the attending radiologist will follow. Signed by: Dr. Terence Montenegro M.D. on 07/18/2018 1:37 PM
--- NOTE | 2018-07-18 12:08 | Diagnostic Imaging Report ---
EXAMINATION: CHEST 2 VIEWS INDICATION: Dizziness, headache COMPARISON: None available FINDINGS: PA and lateral views TUBES and LINES: None. LUNGS: Lungs are well inflated. There is no evidence of pneumonia or pulmonary edema. PLEURA: No pleural effusion or pneumothorax. HEART AND MEDIASTINUM: The heart is mildly enlarged. No hilar lymphadenopathy. Pulmonary vascular markings are normal. BONES AND SOFT TISSUES: No focal osseous lesions. Soft tissues are unremarkable. UPPER ABDOMEN: No free air under the diaphragm. Cholecystectomy clips are present. IMPRESSION: Mild cardiomegaly. No acute pulmonary process. Signed by: Dr. Juan C Wong MD on 07/18/2018 12:05 PM
[2018-07-18] MEDS ORDERED: MORPHINE SULFATE INJ 4 MG/ML INJ IV ONE (12:30)
[2018-07-18 13:12] VITALS: BP 108/57
== END 2018-07-18 13:18 | disposition home or self-care (01) ==
LOC: ER 10:24
DX: G43.909 Migraine, unspecified, not intractable, without status migrainosus (principal); R42 Dizziness and giddiness; I10 Essential (primary) hypertension; F31.9 Bipolar disorder, unspecified
CPT/HCPCS: 36415; 70450; 71046; 80053; 81001; 82550; 82553; 84484; 85025; 85610; 85730; 93005; 99284; J2270; J2405; J7030

== ENCOUNTER → 2018-10-01 | Day surgery (SDC) | payer BC ==
[~2018-10-01] MED LIST changes: +FENTANYL CITRATE/PF 100MCG/2 ML INJ ONE; +HYDRALAZINE HCL50 MG PO; +HYOSCYAMINE SULFATE 0.5 MG/ML INJ ONE; +MIDAZOLAM HCL 2 MG/2 ML VIAL ONE; +PANTOPRAZOLE 40 MG 10ML VIAL ONE; +PROPOFOL IV EMULSION 10 MG/ML 50 ML VIAL ONE
--- OUTSIDE RECORDS SUMMARY | 2018-10-01 09:56 | XMS REPORT | Clinical Summary ---
Author Author [facility] Address Unknown Phone Unavailable Care Team Providers Care Warp Changer Name Role Phone System, Provider Not In MD PCP Unavailable Allergies Comments Active Allergy Reactions Severity Noted Date Barium Sulfate GI 08/25/2018 Intolerance States she was only a child, does not know the reaction. Sulfa (Sulfonamide 08/25/2018 Antibiotics) Medications End Date Status Medication Sig Dispensed Refills Start Date Active clonAZEPAM (KlonoPIN) 0.5 Take 0.25 mg 0 MG tablet by mouth as needed for seizures. Active clonAZEPAM (KlonoPIN) 1 Take 1 mg by 0 MG tablet mouth nightly. Active iron fum/folic Take by mouth 0 acid/mv,min 15 every (HEMOCYTE-PLUS ORAL) morning. Active colestipol (COLESTID) 1 Take 1 g by 0 gram tablet mouth every morning. Active metoprolol tartrate Take 25 mg by 0 (LOPRESSOR) 25 mg tablet mouth 2 (two) times a day. Active venlafaxine (EFFEXOR) Take 37.5 mg 0 37.5 MG tablet by mouth every morning. Active valsartan (DIOVAN) 160 MG Take 160 mg 0 tablet by mouth 2 (two) times a day. Active hydrALAZINE (APRESOLINE) Take 50 mg by 0 50 MG tablet mouth 3 (three) times a day. Active ranitidine (ZANTAC) 150 Take 150 mg 0 MG tablet by mouth 2 (two) times a day. Active lamoTRIgine (LaMICtal) Take 200 mg 0 200 MG tablet by mouth 2 (two) times a day. Active butalb/acetaminophen/caff Take by mouth 0 eine every 6 (six) (BUTALBITAL-ACETAMINOPHEN hours as -CAFF ORAL) needed. Active levothyroxine (SYNTHROID, Take 25 mcg 0 LEVOXYL) 25 mcg tablet by mouth every morning. Active hydroCHLOROthiazide Take 25 mg by 0 (HYDRODIURIL) 25 MG mouth every tablet morning. Active amLODIPine (NORVASC) 5 mg Take 5 mg by 0 tablet mouth 2 (two) times a day. Active fluticasone (FLONASE) 50 2 sprays by 0 mcg/actuation nasal spray Each Nare route every morning. Active multivitamin with Take 1 tablet 0 minerals tablet by mouth daily. Active Problems Not on file Encounters Care Team Description Date Type Specialty Johnathan Rainey MD 09/01/2018 Anesthesia General Surgery Event Jeni Gabriel MD RIGHT BREAST DUCT EXCISION AND POSSIBLE ONCOPLASTIC CLOSURE 09/01/2018 Surgery General Surgery Jeni Gabriel MD Preoperative testing 09/01/2018 [facility] General Surgery Encounter Jeni Gabriel MD Preoperative testing (Primary Dx) 08/25/2018 Pre-Admit Pre-Admission Testing Testing Appointment Jeni Gabriel MD Unspecified lump in the right breast, unspecified quadrant; Nipple discharge; Unspecified lump in the left breast, unspecified quadrant 08/02/2018 Hospital Radiology Encounter Jeni Gabriel MD Status post biopsy 07/23/2018 Hospital Radiology Encounter Jeni Gabriel MD Abnormal finding on breast imaging 07/23/2018 Hospital Radiology Encounter Jeni Gabriel MD Abnormal finding on breast imaging 07/19/2018 Hospital Radiology Encounter Jeni Gabriel MD Abnormal finding on breast imaging 07/19/2018 Hospital Radiology Encounter Jeni Gabriel MD Abnormal finding on breast imaging (Primary Dx); Unspecified lump in the right breast, unspecified quadrant; Nipple discharge; Unspecified lump in the left breast, unspecified quadrant 07/16/2018 Transcribe Access Orders Jeni Gabriel MD Lump of right breast; Lump of left breast; Nipple discharge 07/14/2018 Hospital Radiology Encounter Jeni Gabriel MD Lump of right breast (Primary Dx); Lump of left breast; Nipple discharge 07/06/2018 Transcribe Access Orders Jeni Gabriel MD 06/29/2018 Hospital Radiology Encounter Jeni Gabriel MD 06/29/2018 Hospital Radiology Encounter Jeni Gabriel MD 06/29/2018 Hospital Radiology Encounter Jeni Gabriel MD 06/29/2018 Hospital Radiology Encounter Jeni Gabriel MD 05/31/2018 Hospital Radiology Encounter Jeni Gabriel MD 05/31/2018 Hospital Radiology Encounter Jeni Gabriel MD 05/31/2018 Hospital Radiology Encounter Jeni Gabriel MD 05/31/2018 Hospital Radiology Encounter Jeni Gabriel MD 05/31/2018 Hospital Radiology Encounter Jeni Gabriel MD 05/31/2018 Hospital Radiology Encounter Jeni Gabriel MD 05/31/2018 Hospital Radiology Encounter Jeni Gabriel MD 05/31/2018 Transcribe Access Orders after 09/30/2017 Family History Medical History Relation Name Comments Cancer Cousin PATERNAL Heart disease Father Cancer Paternal Aunt Cancer Paternal Grandmother Relation Name Status Comments Cousin PATERNAL Father PACEMAKER/ TRIPLE BYPASS Maternal Grandfather Maternal Grandmother Mother Paternal Aunt BREAST Paternal Grandfather Paternal Grandmother Social History Date Tobacco Use Types Packs/Day Years Used Former Smoker Smokeless Tobacco: Never Used Alcohol Use Drinks/Week oz/Week Comments No Alcohol Habits Answer Date Recorded How often do you have a drink containing alcohol? Never 08/25/2018 How many drinks containing alcohol do you have on Not asked a typical day when you are drinking? How often do you have six or more drinks on one Not asked occasion? Sex Assigned at Date Recorded Not on file Industry Job Start Date Occupation Not on file Not on file Not on file Travel End Travel History Travel Start No recent travel history available. Last Filed Vital Signs Time Taken Vital Sign Reading 09/01/2018 1:23 PM [employer] Blood Pressure 135/66 09/01/2018 1:23 PM [employer] Pulse 60 09/01/2018 11:59 AM [employer] Temperature 36.5 C (97.7 F) 09/01/2018 1:23 PM [employer] Respiratory Rate 16 09/01/2018 1:23 PM [employer] Oxygen Saturation 95% - Inhaled Oxygen - Concentration 09/01/2018 8:08 AM [employer] Weight 81.4 kg (179 lb 8 oz) 09/01/2018 8:08 AM [employer] Height 167.6 cm (5' 6") 09/01/2018 8:08 AM [employer] Body Mass Index 28.97 Plan of Treatment Health Maintenance Due Date Last Done Comments CERVICAL CANCER SCREENING 1986 COLON CANCER SCREENING 2015 SHINGLES VACCINES (1 of 2015 2) INFLUENZA VACCINE 04/21/2018 09/21/2017 BREAST CANCER SCREENING 07/23/2020 07/23/2018 Procedures Comments Procedure Name Priority Date/Time Associated Diagnosis SURGICAL PATHOLOGY Routine 09/01/2018 REQUEST 9:55 AM [employer] RI AN ELECTIVE Routine 09/01/2018 SUPRAGLOTTIC AIRWAY 9:31 AM [employer] Procedure Note - Claire Pavon CRNA - 09/01/2018 9:31 AM [employer] ANESTHESIA INTUBATION Date/Time: 09/01/2018 9:15 AM Performed by: Claire Pavon CRNA Authorized by: Michael Bejarano MD Location: OR Urgency: Elective Difficult Airway: No Anesthesio logist: Michael Contreras MD Resident/C RNA/AA: Claire Pavon CRNA Preoxygena sukh with 100% O2: Yes C-spine Precaution s Maintained Throughout : Yes Mask Ventilatio n: Easy mask Final Airway Type: Supraglott ic airway Final LMA: Classic LMA Size: 4 Number of Attempts at Approach: 1 Smooth IV induction. LMA placed easily s/p lubricatio n with cuff up to seal. LMA secured. Nasalphary ngeal temp. INCISIONAL BIOPSY, BREAST 09/01/2018 RIGHT NIPPLE DISCHARGE 9:00 AM [employer] AND FILLING DEFECT N63.10, N64.52, N63.20 ECG 12-LEAD Routine 08/25/2018 Preoperative testing 1:53 PM [employer] ESTIMATED GFR Routine 08/25/2018 1:44 PM [employer] COMPREHENSIVE METABOLIC Routine 08/25/2018 Preoperative testing PANEL 1:44 PM [employer] HC COMPLETE BLD COUNT Routine 08/25/2018 Preoperative testing W/AUTO DIFF 1:44 PM [employer] MRI BREAST BIOPSY LEFT Routine 08/02/2018 Unspecified lump in the 9:49 AM [employer] right breast, unspecified quadrant Nipple discharge Unspecified lump in the left breast, unspecified quadrant MRI BREAST BIOPSY RIGHT Routine 07/23/2018 Abnormal finding on 11:05 AM CDT breast imaging SURGICAL PATHOLOGY Routine 07/23/2018 REQUEST 10:15 AM CDT MAMMO DIAGNOSTIC W CAD Routine 07/23/2018 Status post biopsy RIGHT 10:08 AM CDT US BREAST LEFT LIMITED Routine 07/19/2018 Abnormal finding on 1:25 PM CDT breast imaging MRI BREAST W WO CONTRAST Routine 07/14/2018 Lump of right breast BILATERAL 9:37 AM CDT Lump of left breast Nipple discharge ESTIMATED GFR Routine 07/14/2018 8:00 AM CDT POC CREATININE Routine 07/14/2018 8:00 AM CDT MAMMO EXTERNAL STUDY Routine 03/29/2018 3:02 PM CDT MAMMO EXTERNAL STUDY Routine 02/10/2018 3:02 PM CDT US BREAST EXTERNAL STUDY Routine 02/10/2018 3:02 PM CDT US BREAST EXTERNAL STUDY Routine 02/02/2018 3:02 PM CDT MAMMO EXTERNAL STUDY Routine 02/02/2018 3:01 PM CDT after 09/30/2017 Results * Surgical pathology request (09/01/2018 9:55 AM [employer]) Only the most recent of 2 results within the time period is included. [facility] DEPARTMENT OF PATHOLOGY AND GENOMIC MEDICINE Surgical pathology report See link below for PDF Lab [facility] DEPARTMENT OF Report PATHOLOGY AND GENOMIC MEDICINE Result status This is Final Report for [facility] DEPARTMENT OF [id number] PATHOLOGY AND GENOMIC MEDICINE Performing Organization Address City/State/Zipcode Phone Number [facility] [place] [address] [place] [address] PATHOLOGY AND GENOMIC MEDICINE * ECG 12 lead (08/25/2018 1:53 PM [employer]) Ventricular rate 56 [facility] Atrial rate 56 [facility] RI interval 200 [facility] QRSD interval 104 [facility] QT interval 464 [facility] QTC interval 447 [facility] P axis 1 38 [facility] QRS axis 1 76 [facility] T wave axis 78 [facility] EKG impression Sinus bradycardia-Nonspecific [facility] MUSE ST and T wave abnormality-Abnormal ECG-No previous ECGs available- Narrative Performed At Performing Organization Address City/[facility]/Zipcode Phone Number [facility] MUSE [address] [place] [address] * Estimated GFR (08/25/2018 1:44 PM [employer]) Only the most recent of 2 results within the time period is included. Estimated GFR 57 (A) mL/min/1.73 m2 [facility] Comment: [facility] CatergoryUnitsInte rpretation G1 >=90 Normal or high G2 60-89Mildly decreased [id number] Mildly to moderately decreased [id number] Moderately to severely decreased G4 15-29Severely decreased G5 <15Kidney failure The eGFR was calculated using the Chronic Kidney Disease Epidemiology Collaboration (CKD-EPI) equation. Interpretation is based on recommendations of the National Kidney Foundation-Kidney Disease Outcomes Quality Initiative (NKF-KDOQI) published in 2014. Specimen Plasma specimen Performing Organization Address City/State/Zipcode [place] [address] [place] [address] PATHOLOGY AND GENOMIC MEDICINE [address] * CBC with platelet and differential (08/25/2018 1:44 PM [employer]) WBC 6.40 4.50 - 11.00 k/uL [facility] RBC 4.61 4.20 - 5.50 m/uL [facility] HGB 13.9 12.0 - 16.0 g/dL [facility] HCT 41.6 37.0 - 47.0 % [facility] MCV 90.2 82.0 - 100.0 fL [facility] MCH 30.2 27.0 - 34.0 pg [facility] MCHC 33.4 31.0 - 37.0 g/dL [facility] RDW - SD 41.5 37.0 - 55.0 fL [facility] MPV 9.3 8.8 - 13.2 fL [facility] Platelet count 337 150 - 400 k/uL [facility] Nucleated RBC 0.00 /100 WBC [facility] Neutrophils 55.0 39.0 - 69.0 % [facility] Lymphocytes 31.6 25.0 - 45.0 % [facility] Monocytes 8.4 0.0 - 10.0 % [facility] Eosinophils 4.1 0.0 - 5.0 % [facility] Basophils 0.6 0.0 - 1.0 % [facility] Specimen Blood Performing Organization Address City/State/[place] Phone Number [facility] [place] [id number] [place] [address] [place] [address] PATHOLOGY AND GENOMIC MEDICINE [address] [place], [place] [id number] [place] [address] * Comprehensive metabolic panel (08/25/2018 1:44 PM [employer]) Sodium 139 135 - 148 mEq/L [facility] Potassium 4.4 3.5 - 5.0 mEq/L [facility] Chloride 94 (L) 98 - 112 mEq/L [facility] CO2 31 24 - 31 mEq/L [facility] Anion gap 14@ANIO 7 - 15 mEq/L [facility] BUN 37 (H) 6 - 20 mg/dL [facility] Creatinine 1.10 (H) 0.50 - 0.90 mg/dL [facility] Glucose 102 (H) 65 - 99 mg/dL [facility] Calcium 11.0 (H) 8.3 - 10.2 mg/dL [facility] Protein 8.4 (H) 6.3 - 8.3 g/dL [facility]: [facility] [place] 4.6-7.0 g/dL 1 week 4.4-7.6 g/dL 7 months-1year 5.1-7.3 g/dL 1-2 years5.6-7 .5 g/dL >3 years6.0-8 .0 g/dL 18-150 6.3-8.3 g/dL Albumin 4.9 3.5 - 5.0 g/dL [facility] A/G ratio 1.4 0.7 - 3.8 [facility] Alkaline phosphatase 166 (H) 35 - 104 U/L [facility] AST 39 (H) 10 - 35 U/L [facility] ALT 39 5 - 50 U/L [facility] Total bilirubin 0.3 0.0 - 1.2 mg/dL [facility] Specimen Plasma specimen Performing Organization Address [facility] Phone Number [facility] DEPARTMENT OF [address] [place] [address] [place] [id number] PATHOLOGY AND GENOMIC MEDICINE [facility] [id number] [place] [address] [place] [id number] [facility] * MRI Breast Biopsy Left (08/02/2018 9:49 AM [employer]) Narrative Performed At PROCEDURE: MRI BREAST BIOPSY LEFT [facility] Multiplanar, multisequence breast MRI was performed with and without intravenous Gadolinium contrast.Computer aided detection was utilized. Preliminary contrast-enhanced imaging of the left breast from bilateral approach was obtained. During the contrast exam the 4 mm single solitary focus of enhancement was not well seen after grid placement.. At that point the exam was canceled due to lack of enhancement. A second axial run with post processing after the patient had arisen from the imaging table did show the area of interest, a 4 mm single focus left upper outer quadrant.. IMPRESSION: Aborted MRI biopsy due to the lack of visualization with the biopsy grid in place. Probably benign findings. Recommend 6 month follow-up MRI. Also recommend follow-up in 6 months by ultrasound and mammography as well. BI-RADS Category 3: Probably benign findings. [facility]-[id number] Performing Organization Address City/[facility]/Zipcode Phone Number [facility] [address] [place] [address] * MRI Breast Biopsy Right (07/23/2018 11:05 AM CDT) Addenda Addendum by Milo Bourne MD on 07/26/2018 10:22 AM ADDENDUM #1 The final pathologic report as interpreted by Dr. Taveras on 07/26/2018 at 10:10 AM demonstrates the following benign findings: Dense stromal fibrosis with focal usual ductal hyperplasia and focal apocrine metaplasia. These benign findings are concordant with prebiopsy imaging. The patient has a 4 mm hyperenhancing mass in the upper outer quadrant left breast for which MRI biopsy has been recommended. Narrative Performed At EXAMINATION:MRI BREAST BIOPSY RIGHT, MAMMO DIAGNOSTIC W CAD [facility] RADIANT RIGHT07/23/2018 COMPARISONS:Contrast-enhanced diagnostic breast MRI 07/14/2018 INDICATION:9 mm linear focus of nonmasslike enhancement 1 to 2:00 position right breast 7 cm from the nipple. The patient also has a 4 mm enhancing mass in the upper outer quadrant left breast 1 to 2:00 position for which an additional left breast MRI biopsy has been recommended. This is to be performed on the subsequent day and time. PROCEDURE: Following a discussion of potential risks, benefits and alternatives, the patient gave verbal and written informed consent for MRI guided vacuum-assisted core-needle biopsy of the right breast. A timeout was performed to verify the patient's name, date of , procedure and laterality. The patient was placed prone on the MRI table and positioned within the breast imaging coil. The biopsy grid was placed along the lateral aspect of the right breast. The patient was advanced into the MRI scanner and pre- and post-contrast imaging in the axial and sagittal planes was performed. The 9 mm nonmasslike focus of linear enhancement 1-2 o'clock right breast 7 cm from the nipple was identified for targeted biopsy. The patient was removed from the scanner and the lateral aspect of the right breast was sterilely prepped. 5 ml of lidocaine was administered subcutaneously for local anesthesia. 15 ml of lidocaine with epinephrine was administered along the needle track and at the biopsy site for deeper anesthesia. Then, a trocar and guide were advanced into the breast. The trocar was removed and replaced with an obturator with a vitamin E capsule at its tip. The patient was placed back in the scanner and repeat MR imaging was performed to confirm appropriate obturator position and depth. Once appropriate positioning had been confirmed, the patient was again removed from the scanner and the obturator was removed and replaced with a 9-Gauge Eviva vacuum-assisted biopsy device placed through the guide. A total of 12 core biopsy specimens were obtained. The specimens were placed directly in Formalin for further pathologic review. An M shaped biopsy marker clip was deployed at the biopsy site. The patient was placed back in the scanner one last time and imaging was performed to confirm clip deployment. Hemostasis was achieved. Post-procedure CC and LM imaging demonstrate appropriate clip deployment and positioning. There were no immediate complications. The patient tolerated the procedure well and was discharged from the department in stable condition with written discharge instructions. IMPRESSION: Technically successful MRI guided vacuum-assisted core needle biopsy of a 9 mm focus of linear nonmasslike enhancement 1-2 o'clock right breast 7 cm from the nipple.M shaped biopsy marker clip is appropriately positioned. Final pathology and addendum pending. Please note, the patient has a 4 mm enhancing mass without sonographic correlate in the upper outer quadrant left breast for which MRI biopsy has also been recommended. This is scheduled to be performed on a later date and time. [id number] Performing Organization Address City/State/[facility] Phone Number [facility] [address] [place] [address] * Mammo Diagnostic w Cad Right (07/23/2018 10:08 AM CDT) Addenda Addendum by Milo Bourne MD on 07/26/2018 10:22 AM ADDENDUM #1 The final pathologic report as interpreted by Dr. Taveras on 07/26/2018 at 10:10 AM demonstrates the following benign findings: Dense stromal fibrosis with focal usual ductal hyperplasia and focal apocrine metaplasia. These benign findings are concordant with prebiopsy imaging. The patient has a 4 mm hyperenhancing mass in the upper outer quadrant left breast for which MRI biopsy has been recommended. Narrative Performed At EXAMINATION:MRI BREAST BIOPSY RIGHT, MAMMO DIAGNOSTIC W CAD RADIANT RIGHT07/23/2018 COMPARISONS:Contrast-enhanced diagnostic breast MRI 07/14/2018 INDICATION:9 mm linear focus of nonmasslike enhancement 1 to 2:00 position right breast 7 cm from the nipple. The patient also has a 4 mm enhancing mass in the upper outer quadrant left breast 1 to 2:00 position for which an additional left breast MRI biopsy has been recommended. This is to be performed on the subsequent day and time. PROCEDURE: Following a discussion of potential risks, benefits and alternatives, the patient gave verbal and written informed consent for MRI guided vacuum-assisted core-needle biopsy of the right breast. A timeout was performed to verify the patient's name, date of , procedure and laterality. The patient was placed prone on the MRI table and positioned within the breast imaging coil. The biopsy grid was placed along the lateral aspect of the right breast. The patient was advanced into the MRI scanner and pre- and post-contrast imaging in the axial and sagittal planes was performed. The 9 mm nonmasslike focus of linear enhancement 1-2 o'clock right breast 7 cm from the nipple was identified for targeted biopsy. The patient was removed from the scanner and the lateral aspect of the right breast was sterilely prepped. 5 ml of lidocaine was administered subcutaneously for local anesthesia. 15 ml of lidocaine with epinephrine was administered along the needle track and at the biopsy site for deeper anesthesia. Then, a trocar and guide were advanced into the breast. The trocar was removed and replaced with an obturator with a vitamin E capsule at its tip. The patient was placed back in the scanner and repeat MR imaging was performed to confirm appropriate obturator position and depth. Once appropriate positioning had been confirmed, the patient was again removed from the scanner and the obturator was removed and replaced with a 9-Gauge Eviva vacuum-assisted biopsy device placed through the guide. A total of 12 core biopsy specimens were obtained. The specimens were placed directly in Formalin for further pathologic review. An M shaped biopsy marker clip was deployed at the biopsy site. The patient was placed back in the scanner one last time and imaging was performed to confirm clip deployment. Hemostasis was achieved. Post-procedure CC and LM imaging demonstrate appropriate clip deployment and positioning. There were no immediate complications. The patient tolerated the procedure well and was discharged from the department in stable condition with written discharge instructions. IMPRESSION: Technically successful MRI guided vacuum-assisted core needle biopsy of a 9 mm focus of linear nonmasslike enhancement 1-2 o'clock right breast 7 cm from the nipple.M shaped biopsy marker clip is appropriately positioned. Final pathology and addendum pending. Please note, the patient has a 4 mm enhancing mass without sonographic correlate in the upper outer quadrant left breast for which MRI biopsy has also been recommended. This is scheduled to be performed on a later date and time. [id number] Procedure Note Hm Interface, Radiology Results Incoming - 07/23/2018 12:15 PM CDT EXAMINATION: MRI BREAST BIOPSY RIGHT, MAMMO DIAGNOSTIC W CAD RIGHT 07/23/2018 COMPARISONS: Contrast-enhanced diagnostic breast MRI 07/14/2018 INDICATION: 9 mm linear focus of nonmasslike enhancement 1 to 2:00 position right breast 7 cm from the nipple. The patient also has a 4 mm enhancing mass in the upper outer quadrant left breast 1 to 2:00 position for which an additional left breast MRI biopsy has been recommended. This is to be performed on the subsequent day and time. PROCEDURE: Following a discussion of potential risks, benefits and alternatives, the patient gave verbal and written informed consent for MRI guided vacuum-assisted core-needle biopsy of the right breast. A timeout was performed to verify the patient's name, date of , procedure and laterality. The patient was placed prone on the MRI table and positioned within the breast imaging coil. The biopsy grid was placed along the lateral aspect of the right breast. The patient was advanced into the MRI scanner and pre- and post-contrast imaging in the axial and sagittal planes was performed. The 9 mm nonmasslike focus of linear enhancement 1-2 o'clock right breast 7 cm from the nipple was identified for targeted biopsy. The patient was removed from the scanner and the lateral aspect of the right breast was sterilely prepped. 5 ml of lidocaine was administered subcutaneously for local anesthesia. 15 ml of lidocaine with epinephrine was administered along the needle track and at the biopsy site for deeper anesthesia. Then, a trocar and guide were advanced into the breast. The trocar was removed and replaced with an obturator with a vitamin E capsule at its tip. The patient was placed back in the scanner and repeat MR imaging was performed to confirm appropriate obturator position and depth. Once appropriate positioning had been confirmed, the patient was again removed from the scanner and the obturator was removed and replaced with a 9-Gauge Eviva vacuum-assisted biopsy device placed through the guide. A total of 12 core biopsy specimens were obtained. The specimens were placed directly in Formalin for further pathologic review. An M shaped biopsy marker clip was deployed at the biopsy site. The patient was placed back in the scanner one last time and imaging was performed to confirm clip deployment. Hemostasis was achieved. Post-procedure CC and LM imaging demonstrate appropriate clip deployment and positioning. There were no immediate complications. The patient tolerated the procedure well and was discharged from the department in stable condition with written discharge instructions. IMPRESSION: Technically successful MRI guided vacuum-assisted core needle biopsy of a 9 mm focus of linear nonmasslike enhancement 1-2 o'clock right breast 7 cm from the nipple. M shaped biopsy marker clip is appropriately positioned. Final pathology and addendum pending. Please note, the patient has a 4 mm enhancing mass without sonographic correlate in the upper outer quadrant left breast for which MRI biopsy has also been recommended. This is scheduled to be performed on a later date and time. [id number] Performing Organization Address City/State/Zipcode Phone Number [facility] [address] [place] [address] * US Breast Left Limited (07/19/2018 1:25 PM CDT) Narrative Performed At PROCEDURE: US BREAST LEFT LIMITED [facility] CLINICAL HISTORY: Recent abnormal breast MRI exam demonstrated a new 4 mm mass at the left breast upper outer quadrant 1-2:00 position. Focused ultrasound exam of the left breast was recommended to determine if a corresponding suspicious finding was seen to target for biopsy. COMPARISON: Correlation is made with the recent breast MRI from 07/14/2018 and previous outside mammogram from 02/02/2018. FINDINGS:Ultrasound exam was performed of the left breast, focused to the upper left breast at the site of the mass seen on the recent MRI exam at the 1-2:00 position 6 cm from the nipple. Thorough scanning was performed by both me and the technologist. No suspicious finding is seen. No focal abnormality is seen to correspond to the mass seen on the recent MRI exam. IMPRESSION: No suspicious finding is seen to correspond to the mass at the left breast 1-2:00 position seen on the recent MRI exam. MRI guided core needle biopsy of the left breast mass is recommended for pathologic evaluation. These exam results and recommendation were discussed with the patient. The [facility] staff will facilitate scheduling of the recommended procedure. Please see the separate MRI report from 07/14/2018, which has also recommended MRI guided biopsy of a lesion in the upper inner right breast. BI-RADS 4 - SUSPICIOUS- RECOMMEND TISSUE DIAGNOSIS. [id number] Procedure Note Interface, Radiology Results Incoming - 07/19/2018 2:55 PM CDT PROCEDURE: US BREAST LEFT LIMITED CLINICAL HISTORY: Recent abnormal breast MRI exam demonstrated a new 4 mm mass at the left breast upper outer quadrant 1-2:00 position. Focused ultrasound exam of the left breast was recommended to determine if a corresponding suspicious finding was seen to target for biopsy. COMPARISON: Correlation is made with the recent breast MRI from 07/14/2018 and previous outside mammogram from 02/02/2018. FINDINGS: Ultrasound exam was performed of the left breast, focused to the upper left breast at the site of the mass seen on the recent MRI exam at the 1- 2:00 position 6 cm from the nipple. Thorough scanning was performed by both me and the technologist. No suspicious finding is seen. No focal abnormality is seen to correspond to the mass seen on the recent MRI exam. IMPRESSION: No suspicious finding is seen to correspond to the mass at the left breast 1- 2:00 position seen on the recent MRI exam. MRI guided core needle biopsy of the left breast mass is recommended for pathologic evaluation. These exam results and recommendation were discussed with the patient. The [facility] staff will facilitate scheduling of the recommended procedure. Please see the separate MRI report from 07/14/2018, which has also recommended MRI guided biopsy of a lesion in the upper inner right breast. BI-RADS 4 - SUSPICIOUS- RECOMMEND TISSUE DIAGNOSIS. [id number] Performing Organization Address City/State/Zipcode Phone Number [facility] [address] [place] [address] * MRI Breast W Wo Contrast Bilateral (07/14/2018 9:37 AM CDT) Narrative Performed At FULL RESULT: BUNNY Examination: MRI BREAST W WO CONTRAST BILATERAL, 07/14/2018 8:23 AM Clinical History: A 53-year-old woman with right nipple discharge and a tender area of palpable concern in the left breast. The patient has a history of previous benign right breast biopsies. Indication:Palpable abnormality. Nipple discharge. Comparison: Outside MRI dated 08/12/2017 performed at [facility].. Mammogram dated 02/02/2018 performed at [facility] in [place], [place]. Bilateral breast ultrasound dated 02/02/2018 performed at [facility] in [place], [place] Technique: Multiplanar, multisequence bilateral breast MRI [...] on the same date if desired. [email or web address] Performing Organization Address City/State/Zipcode Phone Number [facility] [address] [place] [address] * POC creatinine (07/14/2018 8:00 AM CDT) POC creatinine 1.2 (H) 0.5 - 0.9 mg/dl [facility] DEPARTMENT OF PATHOLOGY AND GENOMIC MEDICINE Specimen Blood Performing Organization Address [facility]/Zipcode Phone Number [facility] DEPARTMENT [address] [place] [address] PATHOLOGY AND GENOMIC MEDICINE * Mammo External Study (03/29/2018 3:02 PM CDT) Only the most recent of 3 results within the time period is included. Narrative Performed At This exam was not acquired at a [facility] facility and has not been [facility] interpreted by a [facility] Provider.The exam was imported into our imaging system for comparisons purposes. Performing Organization Address City/[facility]/Zipcode Phone Number [facility] [address] [place] [address] * US Breast External Study (02/10/2018 3:02 PM CDT) Only the most recent of 2 results within the time period is included. Narrative Performed At This exam was not acquired at a [facility] facility and has not been [facility] interpreted by a [facility] Provider.The exam was imported into our imaging system for comparisons purposes. Performing Organization Address City/State/Zipcode Phone Number [facility] [address] [place] [address] after 09/30/2017 Insurance Payer Benefit Subscriber ID Type Phone Address Plan / Group BCBS ANTHEM xxxxxxxxxxxx PPO BLUE CROSS Advance Directives Patient has advance care planning documents on file. For more information, raegan johns contact: George Cabrera [address] [place] [address]
[2018-10-01 15:45] VITALS: BP 139/75
--- NOTE | 2018-10-01 16:25 | Operative Report ---
DATE OF PROCEDURE: October 01, 2018 REFERRING PHYSICIAN: Dr. Sulema Delgado PROCEDURES PERFORMED 1. Esophagogastroduodenoscopy with esophageal dilatation and biopsies. 2. Colonoscopy with polypectomy and biopsies. INDICATIONS FOR EGD: Dysphagia and acid reflux. INDICATIONS FOR COLONOSCOPY: Crampy lower abdominal pain, history of bright red blood per rectum, personal history of colon polyps. MEDICATION: Patient was done under MAC. Please see anesthesiologist's note. PROCEDURE: With the patient in the left lateral decubitus position, the flexible fiberoptic Olympus gastroscope was introduced into the esophagus under direct visualization without any difficulty. There was some patchy erythema noted in the distal esophagus. The esophagus was then dilated to size 52-Greek Yu. The scope was then advanced with ease into the stomach. Mucosa overlying the antrum and the body revealed some patchy intense erythema and low-grade edema, and biopsies were obtained and sent to stain for H. pylori. Several hyperplastic appearing polyps were noted in the body of the stomach, as well as in the fundus, and some were partially excised with the cold biopsy forceps. There was an approximately 3 mm peripyloric nodule and that was biopsied. The pylorus was intubated with ease. The scope was advanced all the way to the 2nd portion of the duodenum. The scope was then withdrawn slowly. Mucosa overlying the proximal 2nd portion and the duodenal bulb appeared to be within normal limits. The scope was then withdrawn back into the stomach and retroflexed. Other than for minute hyperplastic appearing polyps, the fundus appeared to be within normal limits. An approximately 5 mm friable nodule was noted at the cardia and that was biopsied. The scope was then straightened out. It was subsequently withdrawn. Patient tolerated the procedure well. IMPRESSION 1. Distal esophagitis, mild. 2. Esophagus dilated to a size 52-Greek Yu. 3. Gastric polyps, body, hyperplastic appearing. Some partially excised with the cold biopsy forceps. 4. Approximately, 5-mm nodule, cardia, biopsied. 5. Gastritis, biopsied. Biopsies sent to stain for Helicobacter pylori. 6. Peripyloric nodule, biopsied. PLAN: Follow up histology. Initiate Protonix 40 mg 1 p.o. q.a.m. a.c. Patient was then turned around. After adequate lubrication of the anal canal, a flexible fiberoptic Olympus colonoscope was inserted into the rectum with ease and advanced all the way to the cecum. The ileocecal valve appeared to be within normal limits. It was intubated with ease. The scope was advanced into the terminal ileum. Biopsies were obtained. The scope was then withdrawn back into the colon. It was then withdrawn slowly. Mucosa overlying the ascending and the transverse appeared to be within normal limits. Some mild patchy inflammatory changes were noted in the left colon. Random biopsies were obtained. Two minute polyps were hot biopsied from the rectum. The scope was then retroflexed into the distal rectum and small internal hemorrhoids were noted, none of which was actively bleeding. The scope was then straightened out. It was subsequently withdrawn. Patient tolerated the procedure well. IMPRESSION 1. Mild patchy left-sided colitis. 2. Rectal polyps times 2, hot biopsied. 3. Internal hemorrhoids, none actively bleeding. PLAN: Follow up histology. Discontinue Colestid as it might be inducing constipation in the patient. Start VSL #3 one p.o. daily and Bentyl 10 mg 1 p.o. t.i.d. Patient might benefit from a followup colonoscopy in 3-5 years. Job#: [id number] BRYAN cc:SULEMA DELGADO DO
== END | disposition home or self-care (01) ==
LOC: OR 09:42
PROVIDERS: ATTEND Internal Medicine Gastroenterology
DX: K51.50 Left sided colitis without complications (principal); K62.1 Rectal polyp; K31.7 Polyp of stomach and duodenum; K29.50 Unspecified chronic gastritis without bleeding; K25.9 Gastric ulcer, unspecified as acute or chronic, without hemorrhage or perforation; K21.0 Gastro-esophageal reflux disease with esophagitis; K31.89 Other diseases of stomach and duodenum; K64.8 Other hemorrhoids; G47.30 Sleep apnea, unspecified; I10 Essential (primary) hypertension; E11.9 Type 2 diabetes mellitus without complications; F31.9 Bipolar disorder, unspecified; F41.9 Anxiety disorder, unspecified; Z88.6 Allergy status to analgesic agent; Z91.041 Radiographic dye allergy status; Z88.2 Allergy status to sulfonamides; Z91.048 Other nonmedicinal substance allergy status
CPT/HCPCS: 36415; 43239; 43450; 45380; 45384; 82948; J1980; J2250; 45378; 45385

== ENCOUNTER → 2019-06-21 | Outpatient (CLI) | payer BC ==
[~2019-06-21] MED LIST changes: -FENTANYL CITRATE/PF 100MCG/2 ML INJ ONE; +GADOBENATE DIMEGLUMINE 1 ML IV ONE; -HYOSCYAMINE SULFATE 0.5 MG/ML INJ ONE; +LORAZEPAM INJ 2 MG/ML VIAL ONE; -MIDAZOLAM HCL 2 MG/2 ML VIAL ONE; -PANTOPRAZOLE 40 MG 10ML VIAL ONE; -PROPOFOL IV EMULSION 10 MG/ML 50 ML VIAL ONE
[2019-06-21 13:43] LABS: CREATININE, SERUM 1.13 mg/dL (0.57-1.11)
--- NOTE | 2019-06-21 15:57 | Diagnostic Imaging Report ---
History: Headaches Comparison studies: None Technique: Pre-contrast: Sagittal T2; axial T1-IR, MPGR, DWI, T2 FLAIR Post-contrast: axial and coronal T1. Intravenous contrast: 17 cc of MultiHance Findings: Scalp: No abnormal signal. No masses. Bone marrow: Normal in signal intensity. Brain sulci: Appropriate for age. Ventricles: Normal in size . No hydrocephalus. Extra-axial: No masses, fluid collections or hemorrhage. Parenchyma: No abnormal signal intensities. No masses, hemorrhage, acute or chronic vascular insults. No enhancing abnormalities. Suprasellar region: No abnormalities. Craniocervical junction: No abnormalities. Patent foramen magnum. No Chiari one malformation.. Vessels: Normal flow-voids in the arteries and sinuses. Incidental findings: None IMPRESSION: 1. No abnormalities Signed by: DR Ki Pagan M.D. on 06/21/2019 3:53 PM
== END ==
LOC: MRI 12:36
PROVIDERS: ATTEND Student in an Organized Health Care Education/Training Program
DX: G43.109 Migraine with aura, not intractable, without status migrainosus (principal); H53.9 Unspecified visual disturbance; M31.6 Other giant cell arteritis
CPT/HCPCS: 36415; 70553; 82565; 84520; A9577; J2060

== ENCOUNTER → 2019-07-14 | Day surgery (SDC) | payer BC ==
[~2019-07-14] MED LIST changes: +ALLOPURINOL100 MG PO; +ASPIR 8181 MG PO; +ATORVASTATIN CA20 MG PO; +CALCIPOTRIENE60 G1 TOP; +CARAFATE1 GM/10 ML PO; +DIAZEPAM5 MG PO; +FENTANYL CITRATE/PF 100MCG/2 ML INJ ONE; -GADOBENATE DIMEGLUMINE 1 ML IV ONE; +HYDROCHLOROTHIA25 MG PO; +HYDROXYZINE HCL25 MG PO; +INGREZZA40 MG PO; +LEFLUNOMIDE20 MG PO; -LORAZEPAM INJ 2 MG/ML VIAL ONE; +METFORMIN HCL500 MG PO; +METOCLOPRAMIDE HCL 10 MG/2ML VIAL ONE; +METOPROLOL SUCC25 MG PO; +MIDAZOLAM HCL 2 MG/2 ML VIAL ONE; +PANTOPRAZOLE 40 MG 10ML VIAL ONE; +PROPOFOL IV EMULSION 10 MG/ML 50 ML VIAL ONE; +VIT D3 PO
[2019-07-14 14:10] VITALS: BP 138/81
--- NOTE | 2019-07-14 18:29 | Operative Report ---
DATE OF PROCEDURE: 07/14/2019 SURGEON: Tonny Lunsford MD PROCEDURES: EGD with polypectomy and biopsies, esophageal dilatation and pyloric channel dilatation. INDICATIONS FOR EGD: Dysphagia. MEDICATIONS: The patient was done under MAC, please see anesthesiologist's note. PROCEDURE IN DETAIL: With the patient in left lateral decubitus position, a flexible fiberoptic Olympus gastroscope was introduced into the esophagus under direct visualization without any difficulty. There was some patchy erythema noted in distal esophagus. A mild stricture noted at the GE junction that was dilated to size 52-Jamaican Yu. The scope was then advanced with ease into the stomach, mucosa overlying the antrum and the body revealed some diffuse erythema and moderate edema, and biopsies were obtained and sent to stain for H. pylori. The pyloric channel was strictured. It could not be traversed with the scope and that was dilated to size 20 mm per TTS balloon dilators. The scope was then advanced with ease into the duodenum all the way to the second portion. It was then withdrawn slowly and biopsies were obtained from the proximal second portion and the duodenal bulb to rule out sprue. The scope was then withdrawn back into the stomach and retroflexed, and approximately 3 mm friable nodule was noted at the GE junction that was removed per snare electrocautery. The scope was then straightened out, it was subsequently withdrawn, and the patient tolerated the procedure well. IMPRESSION: 1. Distal esophagitis, mild. 2. Esophagus dilated to size 52-Jamaican Yu. 3. Approximately 3 mm friable nodule cardia, removed per snare electrocautery. 4. Gastritis, biopsied, biopsies sent to stain for Helicobacter pylori. 5. 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 6. Rule out sprue. PLAN: Follow up histology. Increase Protonix to 40 mg 1 p.o. before meals b.i.d. Tonny Lunsford MD [facility]/MODL /[id number] cc: Shan Lunsford MD
== END | disposition home or self-care (01) ==
LOC: OR 09:42
PROVIDERS: ATTEND Internal Medicine Gastroenterology
DX: R13.10 Dysphagia, unspecified (principal); K22.70 Barrett's esophagus without dysplasia; K31.7 Polyp of stomach and duodenum; R14.0 Abdominal distension (gaseous); Z91.041 Radiographic dye allergy status; Z91.010 Allergy to peanuts; Z88.2 Allergy status to sulfonamides; Z88.8 Allergy status to other drugs, medicaments and biological substances; Z91.018 Allergy to other foods; E11.9 Type 2 diabetes mellitus without complications; E03.9 Hypothyroidism, unspecified; K21.9 Gastro-esophageal reflux disease without esophagitis; K58.9 Irritable bowel syndrome, unspecified; F41.9 Anxiety disorder, unspecified; G47.33 Obstructive sleep apnea (adult) (pediatric); I10 Essential (primary) hypertension; E78.5 Hyperlipidemia, unspecified; R01.1 Cardiac murmur, unspecified; F32.9 Major depressive disorder, single episode, unspecified; Z86.73 Personal history of transient ischemic attack (TIA), and cerebral infarction without residual deficits; K22.2 Esophageal obstruction; K29.70 Gastritis, unspecified, without bleeding; Z79.84 Long term (current) use of oral hypoglycemic drugs
CPT/HCPCS: 36415; 43239; 43245; 43450; 82948; 93005; C1726; C9113; J2250; J2704; J2765; J3010; 43251

== ENCOUNTER 2020-06-30 15:46 | Inpatient (IN) | payer BC ==
[~2020-06-30] VITALS: Ht 167.6 cm; Wt 79.4 kg
[~2020-06-30 15:46] MED LIST changes: -FENTANYL CITRATE/PF 100MCG/2 ML INJ ONE; -METOCLOPRAMIDE HCL 10 MG/2ML VIAL ONE; -MIDAZOLAM HCL 2 MG/2 ML VIAL ONE; -PANTOPRAZOLE 40 MG 10ML VIAL ONE; -PROPOFOL IV EMULSION 10 MG/ML 50 ML VIAL ONE
[2020-06-30] MEDS ORDERED: MORPHINE SULFATE 2 MG/ML SYR 1ML IV STA (15:55)
[2020-06-30 16:07] LABS: BASOPHILS # (AUTO) 0.1 (0.0-0.1); BASOPHILS % 0.6 % (0.0-1.0); EOSINOPHILS # (AUTO) 0.5 (0.0-0.4); EOSINOPHILS % 5.2 % (0.0-6.0); HEMATOCRIT 42.6 % (34.2-44.1); HEMOGLOBIN 13.8 g/dL (12.0-16.0); LYMPHOCYTES # (AUTO) 2.2 (1.0-3.2); LYMPHOCYTES % 25.5 % (18.0-39.1); MEAN CORPUSCULAR HEMOGLOBIN 29.1 pg (28-32); MEAN CORPUSCULAR HGB CONC 32.4 g/dL (31-35); MEAN CORPUSCULAR VOLUME 89.7 fL (81-99); MONOCYTES # (AUTO) 0.7 (0.2-0.8); MONOCYTES % 8.2 % (4.4-11.3); NEUTROPHILS # (AUTO) 5.3 (2.1-6.9); NEUTROPHILS % 60.3 % (38.7-80.0); PLATELET COUNT 362 x10e3/uL (140-360); RED BLOOD COUNT 4.75 x10e6/uL (3.6-5.1); RED CELL DISTRIBUTION WIDTH 12.5 % (11.7-14.4)
[2020-06-30 16:26] LABS: INR 0.89; PROTHROMBIN TIME 12.5 seconds (11.9-14.5)
[2020-06-30 16:27] LABS: PARTIAL THROMBOPLASTIN TIME 27.4 seconds (23.8-35.5)
[2020-06-30 16:38] LABS: ALBUMIN 4.4 g/dL (3.5-5.0); ALBUMIN/GLOBULIN RATIO 1.3 (0.8-2.0); CALCIUM 10.1 mg/dL (8.4-10.2); CREATININE, SERUM 1.49 mg/dL (0.57-1.11); MAGNESIUM 1.9 MG/DL (1.3-2.1)
[2020-06-30 16:44] LABS: CREATINE KINASE MB 0.7 ng/mL (0-5.0)
[2020-06-30] MEDS ORDERED: NITROGLYCERIN 0.4 MG SUBL SL PRN (16:45)
[2020-06-30 16:51] LABS: BILIRUBIN,URINE NEGATIVE (NEGATIVE); CLARITY,URINE HAZY (CLEAR); COLOR,URINE YELLOW (YELLOW); KETONES,URINE NEGATIVE (NEGATIVE); LEUKOCYTE ESTERASE ,URINE SMALL (NEGATIVE); NITRITE,URINE NEGATIVE (NEGATIVE); PROTEIN,URINE DIPSTICK 2+ (NEGATIVE); URINE UROBILINOGEN 0.2 mg/dL (0.2 - 1)
[2020-06-30 16:54] LABS: BACTERIA,URINE FEW /HPF; EPITHELIAL CELLS,URINE FEW /LPF; WBC,URINE (MAN) 21-50 /HPF (0-5)
[2020-06-30] MEDS ORDERED: NITROGLYCERIN 2% OINT 1 GM PKT ONE (17:03)
[2020-06-30] MEDS: FAMOTIDINE 20 MG/2 ML VIAL IV SCH (17:08)
[2020-06-30] MEDS: NITROGLYCERIN 2% OINT 1 GM PKT TOP SCH ×2 (17:08→18:00)
[2020-06-30] MEDS ORDERED: DEXTROSE 50% SYRINGE 50 ML IV PRN (17:15)
[2020-06-30] MEDS ORDERED: SODIUM CHLORIDE 0.9% 1000ML 1,000 ML IV SCH (17:15)
[2020-06-30] MEDS ORDERED: HYDRALAZINE HCL 20 MG/ML VIAL IV PRN (17:30)
[2020-06-30 19:16] VITALS: BP 145/81
[2020-06-30] MEDS: HYDROXYZINE HCL 25 MG TAB PO SCH (20:48)
[2020-06-30] MEDS: CEFTRIAXONE SOD 1 GM/NS 50 ML 50 ML IV SCH (20:48)
[2020-06-30] MEDS: ATORVASTATIN 20 MG TAB PO SCH (20:48)
[2020-06-30] MEDS: QUETIAPINE FUMARATE 25 MG TAB PO SCH (20:48)
[2020-06-30] MEDS: DIAZEPAM 5 MG TAB PO SCH (20:48)
[2020-06-30] MEDS: ACETAMINOPHEN 325 MG TAB PO PRN (20:51)
[2020-06-30] MEDS: INSULIN LISPRO 100 UNIT/1 ML 3ML VIAL SQ SCH (21:01)
[2020-06-30 21:46] VITALS: BP 145/81
[2020-07-01] VITALS (7 sets, daily range): BP systolic 117–178; BP diastolic 65–106
[2020-07-01] MEDS: NITROGLYCERIN 2% OINT 1 GM PKT TOP SCH ×4 (00:14→16:21)
[2020-07-01 00:41] LABS: CREATINE KINASE MB 0.5 ng/mL (0-5.0)
[2020-07-01] MEDS: FAMOTIDINE 20 MG/2 ML VIAL IV SCH (05:31)
[2020-07-01 05:52] LABS: BASOPHILS % 0.4 % (0.0-1.0); EOSINOPHILS # (AUTO) 0.3 (0.0-0.4); EOSINOPHILS % 4.5 % (0.0-6.0); HEMATOCRIT 39.8 % (34.2-44.1); HEMOGLOBIN 13.1 g/dL (12.0-16.0); LYMPHOCYTES # (AUTO) 2.3 (1.0-3.2); LYMPHOCYTES % 33.1 % (18.0-39.1); MEAN CORPUSCULAR HEMOGLOBIN 29.8 pg (28-32); MEAN CORPUSCULAR HGB CONC 32.9 g/dL (31-35); MEAN CORPUSCULAR VOLUME 90.5 fL (81-99); MONOCYTES # (AUTO) 0.5 (0.2-0.8); MONOCYTES % 7.9 % (4.4-11.3); NEUTROPHILS # (AUTO) 3.7 (2.1-6.9); NEUTROPHILS % 53.8 % (38.7-80.0); PLATELET COUNT 339 x10e3/uL (140-360); RED CELL DISTRIBUTION WIDTH 12.6 % (11.7-14.4)
[2020-07-01 06:25] LABS: ALBUMIN 3.9 g/dL (3.5-5.0); ALBUMIN/GLOBULIN RATIO 1.3 (0.8-2.0); CALCIUM 9.5 mg/dL (8.4-10.2); CHOL/HDL RATIO 4.2 (3.0-3.6); CREATININE, SERUM 1.37 mg/dL (0.57-1.11)
[2020-07-01 06:44] LABS: CREATINE KINASE 48 IU/L (29-168)
[2020-07-01] MEDS: INSULIN LISPRO 100 UNIT/1 ML 3ML VIAL SQ SCH ×4 (08:12→21:48)
[2020-07-01] MEDS ORDERED: ASPIRIN 81 MG ENTERIC COATED PO SCH (09:00)
[2020-07-01] MEDS ORDERED: HYDROCHLOROTHIAZIDE 25 MG TAB PO SCH (09:00)
[2020-07-01] MEDS ORDERED: AMLODIPINE BESYLATE 10 MG TAB PO SCH (09:00)
[2020-07-01] MEDS ORDERED: METFORMIN HCL 500 MG TAB PO SCH (09:00)
[2020-07-01] MEDS: CEFTRIAXONE SOD 1 GM/NS 50 ML 50 ML IV SCH ×2 (09:25→21:05)
[2020-07-01] MEDS: ASPIRIN 81 MG CHEW TAB PO SCH (09:25)
[2020-07-01] MEDS: HYDROXYZINE HCL 25 MG TAB PO SCH ×3 (09:25→21:05)
[2020-07-01] MEDS: DIAZEPAM 5 MG TAB PO SCH ×3 (09:26→21:06)
[2020-07-01] MEDS: LAMOTRIGINE 100 MG TAB PO SCH ×2 (09:26→16:20)
[2020-07-01] MEDS: PANTOPRAZOLE SOD 40 MG TABEC PO SCH (09:26)
[2020-07-01] MEDS: LEVOTHYROXINE SODIUM 50 MCG TAB PO SCH (09:26)
[2020-07-01] MEDS: VALSARTAN 160 MG TAB PO SCH ×2 (09:26→16:20)
[2020-07-01] MEDS: COLESTIPOL HCL 1 G TAB PO SCH (09:26)
[2020-07-01] MEDS: ALLOPURINOL 100 MG TAB PO SCH (09:27)
[2020-07-01] MEDS: FLUTICASONE PROPIONATE NASAL SPRAY NS SCH (10:06)
[2020-07-01] MEDS: Leflunomide 20 MG PO SCH (12:00)
[2020-07-01] MEDS: AMLODIPINE BESYLATE 10 MG TAB PO SCH (12:58)
[2020-07-01] MEDS: FUROSEMIDE 20 MG TAB PO SCH (16:20)
[2020-07-01] MEDS: ATORVASTATIN 20 MG TAB PO SCH (21:05)
[2020-07-01] MEDS: QUETIAPINE FUMARATE 25 MG TAB PO SCH (21:05)
[2020-07-01] MEDS: MORPHINE SULFATE 2 MG/ML SYR 1ML IV PRN (21:06)
[2020-07-02] VITALS: BP 113/64
[2020-07-02 04:00] VITALS: BP 81/57
[2020-07-02] MEDS: ACETAMINOPHEN 325 MG TAB PO PRN (04:58)
[2020-07-02 05:42] LABS: ANION GAP 19.9 mmol/L (8-16); CALCIUM 9.5 mg/dL (8.4-10.2); CREATININE, SERUM 1.95 mg/dL (0.57-1.11); POTASSIUM 3.9 mmol/L (3.5-5.1)
[2020-07-02] MEDS: NITROGLYCERIN 2% OINT 1 GM PKT TOP SCH ×4 (05:54→18:00)
[2020-07-02] MEDS: FUROSEMIDE 20 MG TAB PO SCH ×2 (06:14→18:28)
[2020-07-02] MEDS: INSULIN LISPRO 100 UNIT/1 ML 3ML VIAL SQ SCH ×4 (07:28→22:04)
[2020-07-02] MEDS: VALSARTAN 160 MG TAB PO SCH ×2 (07:29→09:27)
[2020-07-02] MEDS: COLESTIPOL HCL 1 G TAB PO SCH ×2 (07:29→09:27)
[2020-07-02] MEDS: SITAGLIPTIN 100 MG TAB PO SCH ×2 (07:29→09:27)
[2020-07-02] MEDS: HYDROXYZINE HCL 25 MG TAB PO SCH ×4 (07:29→21:01)
[2020-07-02] MEDS: Leflunomide 20 MG PO SCH ×2 (07:29→09:27)
[2020-07-02] MEDS: ASPIRIN 81 MG CHEW TAB PO SCH ×2 (07:29→09:27)
[2020-07-02] MEDS: PANTOPRAZOLE SOD 40 MG TABEC PO SCH ×2 (07:30→09:28)
[2020-07-02] MEDS: AMLODIPINE BESYLATE 10 MG TAB PO SCH ×2 (07:30→09:28)
[2020-07-02] MEDS: LAMOTRIGINE 100 MG TAB PO SCH ×2 (07:30→09:27)
[2020-07-02] MEDS: DIAZEPAM 5 MG TAB PO SCH ×4 (07:34→21:01)
[2020-07-02] MEDS: ALLOPURINOL 100 MG TAB PO SCH ×2 (07:34→09:28)
[2020-07-02] MEDS: LEVOTHYROXINE SODIUM 50 MCG TAB PO SCH ×2 (07:34→09:28)
[2020-07-02 07:35] VITALS: BP 126/80
[2020-07-02] MEDS: FLUTICASONE PROPIONATE NASAL SPRAY NS SCH (08:11)
[2020-07-02] MEDS: ONDANSETRON HCL INJ 2MG/ML 2ML 2 MG/ML VIAL IV PRN ×3 (08:11→16:36)
[2020-07-02] MEDS: MORPHINE SULFATE 2 MG/ML SYR 1ML IV PRN ×4 (08:11→21:00)
[2020-07-02] MEDS: CEFTRIAXONE SOD 1 GM/NS 50 ML 50 ML IV SCH ×2 (08:11→21:01)
[2020-07-02 12:00] VITALS: BP 107/60
[2020-07-02 16:28] VITALS: BP 104/53
[2020-07-02 20:00] VITALS: BP 110/53
[2020-07-02] MEDS: QUETIAPINE FUMARATE 25 MG TAB PO SCH (21:01)
[2020-07-02] MEDS: ATORVASTATIN 20 MG TAB PO SCH (21:01)
[2020-07-03] VITALS (9 sets, daily range): BP systolic 90–148; BP diastolic 45–84
[2020-07-03] MEDS: NITROGLYCERIN 2% OINT 1 GM PKT TOP SCH ×4 (06:00→17:33)
[2020-07-03] MEDS: FUROSEMIDE 20 MG TAB PO SCH ×2 (06:29→17:32)
[2020-07-03] MEDS: INSULIN LISPRO 100 UNIT/1 ML 3ML VIAL SQ SCH ×4 (07:30→21:51)
[2020-07-03] MEDS: MORPHINE SULFATE 2 MG/ML SYR 1ML IV PRN ×3 (08:42→21:36)
[2020-07-03] MEDS: CEFTRIAXONE SOD 1 GM/NS 50 ML 50 ML IV SCH ×2 (08:42→21:35)
[2020-07-03] MEDS: VALSARTAN 160 MG TAB PO SCH ×2 (09:00→16:42)
[2020-07-03] MEDS: LAMOTRIGINE 100 MG TAB PO SCH ×2 (09:12→16:42)
[2020-07-03] MEDS: FLUTICASONE PROPIONATE NASAL SPRAY NS SCH (09:12)
[2020-07-03] MEDS: DIAZEPAM 5 MG TAB PO SCH ×3 (09:12→21:35)
[2020-07-03] MEDS: HYDROXYZINE HCL 25 MG TAB PO SCH ×3 (09:12→21:35)
[2020-07-03] MEDS ORDERED: FENTANYL CITRATE/PF 100MCG/2 ML INJ ONE (09:58)
[2020-07-03] MEDS ORDERED: MIDAZOLAM HCL 2 MG/2 ML VIAL ONE ×4 (09:58→12:36)
[2020-07-03] MEDS ORDERED: SODIUM CHLORIDE 0.9% 1000ML 2,000 ML ONE (09:59)
[2020-07-03] MEDS ORDERED: VANCOMYCIN 1GM/NS 250 ML 500 ML ONE (09:59)
[2020-07-03] MEDS ORDERED: SODIUM CHLORIDE 0.9% 500ML 500 ML ONE (09:59)
[2020-07-03] MEDS ORDERED: LIDOCAINE HCL 2% LOCAL 20 ML VIAL ONE ×3 (09:59→12:38)
[2020-07-03] MEDS: ATORVASTATIN 20 MG TAB PO SCH (21:35)
[2020-07-03] MEDS: QUETIAPINE FUMARATE 25 MG TAB PO SCH (21:35)
[2020-07-04] VITALS (7 sets, daily range): BP systolic 91–119; BP diastolic 54–79
[2020-07-04] MEDS: NITROGLYCERIN 2% OINT 1 GM PKT TOP SCH ×3 (05:35→12:00)
[2020-07-04] MEDS: FUROSEMIDE 20 MG TAB PO SCH (05:53)
[2020-07-04] MEDS: INSULIN LISPRO 100 UNIT/1 ML 3ML VIAL SQ SCH ×2 (07:30→11:30)
[2020-07-04] MEDS: FLUTICASONE PROPIONATE NASAL SPRAY NS SCH (08:12)
[2020-07-04] MEDS: CEFTRIAXONE SOD 1 GM/NS 50 ML 50 ML IV SCH (08:40)
[2020-07-04] MEDS: ASPIRIN 81 MG CHEW TAB PO SCH (08:40)
[2020-07-04] MEDS: LAMOTRIGINE 100 MG TAB PO SCH (08:41)
[2020-07-04] MEDS: HYDROXYZINE HCL 25 MG TAB PO SCH ×2 (08:41→15:00)
[2020-07-04] MEDS: COLESTIPOL HCL 1 G TAB PO SCH (08:41)
[2020-07-04] MEDS: PANTOPRAZOLE SOD 40 MG TABEC PO SCH (08:41)
[2020-07-04] MEDS: ALLOPURINOL 100 MG TAB PO SCH (08:42)
[2020-07-04] MEDS: SITAGLIPTIN 100 MG TAB PO SCH (08:44)
[2020-07-04] MEDS: VALSARTAN 160 MG TAB PO SCH (09:00)
[2020-07-04] MEDS: DIAZEPAM 5 MG TAB PO SCH ×2 (09:00→15:00)
[2020-07-04] MEDS: LEVOTHYROXINE SODIUM 50 MCG TAB PO SCH (09:03)
[2020-07-04] MEDS: Leflunomide 20 MG PO SCH (09:03)
[2020-07-04] MEDS: AMLODIPINE BESYLATE 10 MG TAB PO SCH (09:03)
[2020-07-04] MEDS: ACETAMINOPHEN 325 MG TAB PO PRN (10:08)
== END 2020-07-04 16:08 | disposition home or self-care (01) | DRG 242 ==
LOC: ER 16:08 → ERHOLD 16:36 → IMCU 18:43
PROC: 02H63JZ Insertion of Pacemaker Lead into Right Atrium, Percutaneous Approach (ICD-10-PCS; principal; 2020-07-03)
PROC: 0JH606Z Insertion of Pacemaker, Dual Chamber into Chest Subcutaneous Tissue and Fascia, Open Approach (ICD-10-PCS; 2020-07-03)
PROC: 02HK3JZ Insertion of Pacemaker Lead into Right Ventricle, Percutaneous Approach (ICD-10-PCS; 2020-07-03)
PROC: 0JPT32Z Removal of Monitoring Device from Trunk Subcutaneous Tissue and Fascia, Percutaneous Approach (ICD-10-PCS; 2020-07-03)
DX: R00.1 Bradycardia, unspecified (principal); J18.9 Pneumonia, unspecified organism; N39.0 Urinary tract infection, site not specified; I50.30 Unspecified diastolic (congestive) heart failure; Z95.811 Presence of heart assist device; D64.9 Anemia, unspecified; G47.30 Sleep apnea, unspecified; Z90.49 Acquired absence of other specified parts of digestive tract; Z91.041 Radiographic dye allergy status; Z88.2 Allergy status to sulfonamides; Z91.018 Allergy to other foods; I49.5 Sick sinus syndrome; N28.9 Disorder of kidney and ureter, unspecified; Z79.84 Long term (current) use of oral hypoglycemic drugs; E11.21 Type 2 diabetes mellitus with diabetic nephropathy; E11.22 Type 2 diabetes mellitus with diabetic chronic kidney disease; I12.9 Hypertensive chronic kidney disease with stage 1 through stage 4 chronic kidney disease, or unspecified chronic kidney disease; N18.30 Chronic kidney disease, stage 3 unspecified; T44.7X5A Adverse effect of beta-adrenoreceptor antagonists, initial encounter; E66.9 Obesity, unspecified; E03.9 Hypothyroidism, unspecified; E78.5 Hyperlipidemia, unspecified; Z68.28 Body mass index [BMI] 28.0-28.9, adult
CPT/HCPCS: 33208; 33286; 36415; 71045; 80048; 80053; 80061; 81001; 82550; 82553; 82948; 83735; 83880; 84484; 85025; 85610; 85730; 87086; 93005; 93306; 96372; 99152; 99153; 99284; C1785; C1898; J0696; J2001; J2250; J2270; J2405; J3010; J3370; J3410; J7030; J7040

== ENCOUNTER 2020-07-07 21:42 | Emergency (ER) | payer BC ==
[~2020-07-07] VITALS: Ht 167.6 cm; Wt 79.4 kg
--- OUTSIDE RECORDS SUMMARY | 2020-07-07 22:09 | XMS REPORT | Clinical Summary ---
Author Author [facility] Address Unknown Phone Unavailable Care Team Providers Care Grey Roll Man Name Role Phone System, Provider Not In GREY IRON MOLDER-C PCP Unavailabl e Allergies Comments Active Allergy Reactions Severity Noted [...] mouth daily. Active Problems Not on file Surgical History Surgery Date Site/Laterality Comments HYSTERECTOMY KNEE ARTHROSCOPY Bilateral WRIST SURGERY Right CHOLECYSTECTOMY APPENDECTOMY OOPHORECTOMY Bilateral TUBAL LIGATION INCISIONAL BIOPSY, BREAST 09/01/2018 Breast/Right Proc edure: RIGHT BREAST DUCT EXCISION AND POSSIBLE ONCOPLASTIC CLOSURE; Surgeon: Kd Gabriel MD; Location: [facility] OR; [facility] e: Plastics; Laterality: Right; Medical History Medical History Date Comments Anxiety Depression Bipolar 1 disorder (HCC) Sleep apnea CPAP Type 2 diabetes mellitus (HCC) Hypercholesteremia Hypertension GERD (gastroesophageal reflux disease) Family History Medical History Relation Name Comments Cancer Cousin PATERNAL Heart disease Father Cancer Paternal Aunt Cancer Paternal Grandmother Relation Name Status Comments Cousin PATERNAL Father PACEMAKER/ TRIPLE B YPASS Maternal Grandfather Maternal Grandmother Mother Paternal Aunt BREAST Paternal Grandfather Paternal Grandmother Social History Date Tobacco Use Types Packs/Day Years Used Former Smoker Smokeless Tobacco: Never Used Drinks/Week oz/Week Comments Alcohol Use No Alcohol Habits Answer Date Recorded How often do you have a drink containing alcohol? Never 08/25/2018 How many drinks containing alcohol do you have on No t asked a typical day when you are drinking? How often do you have six or more drinks on one Not asked occasion? Sex Assigned at Date Recorded Not on file Last Filed Vital Signs Not on file Plan of Treatment Health Maintenance Due Date Last Done Comments CERVICAL CANCER SCREENING 1986 COLONOSCOPY SCREENING 2015 SHINGLES VACCINES (#1) 2015 INFLUENZA VACCINE 04/21/2020 09/21/2017 BREAST CANCER SCREENING 07/23/2020 07/23/2018 Results Not on fileafter 07/07/2019 Insurance Type Payer Benefit Subscriber ID Effective Phone Address Plan / Dates Group PPO JOHN GUO [id number] KERRI reyez Advance Directives For more information, please contact: [phone] Patient Meat Passer Explanation Type Date Recorded Advance Directives, 08/25/2018 12:34 PM Living Will and Medical Power of Customer Service Teller
--- OUTSIDE RECORDS SUMMARY | 2020-07-07 22:10 | XMS REPORT | Continuity of Care Document ---
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 Marely Attphys Erasmo VIGIL, Ajith Su Attphys Radames VIGIL, Lior Arteaga Attphys Diya VIGIL, Sunny Attphys Namrata ASENCIO Attphys Unavailable Dangelo KIM Attphys Unavailable Sandra CHAPMAN Attphys Unavailable RAINE ST Attphys Unavailable BRYSONJAEL GATICAHESETH Admphys Unavailable Payers Payer Name Policy Type Policy Number Effective Date Expiration Date S jerad [employer] P[employer] [id number] 2017 00:00:00 [facility] Problems Condition Name Condition Details Condition Category Status Onset Date Resolution Date Last Treatment Date Treating Clinician Comments Source Altered mental status Altered mental status Problem Active 201 12-30-15 00:00:00 [facility] Hypoglycemia Hypoglycemia Problem Active 2014-07-06 00:00:00 [facility] Bradycardia Bradycardia Problem Active [facility] Chest pain Chest pain Problem Active [facility] Hypertensive urgency Hypertensive urgency Problem Active [facility] Syncope Syncope Problem Active [facility] Sick sinus syndrome Problem Active [facility] Urinary tract infection Problem Active [facility] Renal insufficiency Problem Active [facility] Allergies, Adverse Reactions, Alerts Allergy Name Allergy Type Status Severity Reaction(s) Onset Date Inacti ve Date Treating Clinician Comments Source Barium Sulfate Propensity to adverse reactions to drug Active GI Intolerance 2018-08-25 00:00:00 [facility] odist Sulfa (Sulfonamide Antibiotics) Propensity to adverse reactions to drug Active 2018-08-25 00:00:00 States s he was only a child, does not know the reaction. George Cabrera iodine Allergy to substance Active Severe IV IODINE-PASSE D OUT 2018-03-22 00:00:00 [facility] Sulfa (Sulfonamide Antibiotics) Allergy to substance Active Mild 2018-03-22 00:00:00 [facility] Barium iodide Allergy to substance Active 2018-03-22 00:00: 00 [facility] lettuce Allergy to substance Active Mild BLOATING 2018-03-22 00:00:00 [facility] BARIUM Allergy to substance Active 2016-06-16 00:00:00 [facility] ICEBURG LETTUCE Allergy to substance Active Mild Bloating 2016-06-16 00:00:00 [facility] PEANUT BUTTER Allergy to substance Active Mild Bloating 2016-06-16 0 0:00:00 [facility] Family History Family Member Diagnosis Comments Start Date Stop Date Source Cousin Cancer George Method ist Natural father Heart disease George Cabrera Paternal aunt Cancer George Met hodhayden Paternal grandmother Cancer Scott Cabrera Social History Social Habit Start Date Stop Date Quantity Comments Source History SDOH Alcohol Std Drinks George Cabrera History SDOH Alcohol Binge George Cabrera Sex Assigned At Darryl Cabrera Tobacco use and exposure 2018-09-01 00:00:00 2018-09-01 00:00:00 Francisco العراقي used [facility] [employer] Alcohol intake 2018-09-01 00:00:00 2018-09-01 00:00:00 Current non-drinker of alcohol (finding) George Cabrera History SDOH Alcohol Frequency 2018-08-25 00:00:00 2018-08-25 00:00:0 0 1 George Cabrera Smoking Status Start Date Stop Date Source Former smoker 2018-09-01 00:00:00 2018-09-01 00:00:00 George Cabrera Medications Ordered Medication Name Filled Medication Name Start Date Stop Da te Current Medication? Ordering Clinician Indication Dosage Frequency Signature (SIG) Comments Components Source clonAZEPAM (KlonoPIN) 0.5 MG tablet 2018-09-01 13:25:16 Yes .25mg Take 0.25 mg by mouth as needed for seizures. George Cabrera clonAZEPAM (KlonoPIN) 1 MG tablet 2018-09-01 13:25:16 Yes 1mg QD Take 1 mg by mouth nightly. George Cabrera iron fum/folic acid/mv,min 15 (HEMOCYTE-PLUS ORAL) 2018-08 13:25:16 Yes QD Take by mouth every morning. George Cabrera colestipol (COLESTID) 1 gram tablet 2018-09-01 13:25:16 Yes 1g QD Take 1 g by mouth every morning. George blake metoprolol tartrate (LOPRESSOR) 25 mg tablet 2018-09-01 13:25:16 Yes 25mg Q.5D Take 25 mg by mouth 2 (two) times a day. George Cabrera venlafaxine (EFFEXOR) 37.5 MG tablet 2018-09-01 13:25:16 Ye s 37.5mg QD Take 37.5 mg by mouth every morning. Darryl Cabrera valsartan (DIOVAN) 160 MG tablet 2018-09-01 13:25:16 Yes 160mg Q.5D Take 160 mg by mouth 2 (two) times a day. Darryl Cabrera hydrALAZINE (APRESOLINE) 50 MG tablet 2018-09-01 13:25:16 Yes 50mg Q.[id number] Take 50 mg by mouth 3 (three) times a day. George Cabrera ranitidine (ZANTAC) 150 MG tablet 2018-09-01 13:25:16 Yes 150mg Q.5D Take 150 mg by mouth 2 (two) times a day. George Cabrera lamoTRIgine (LaMICtal) 200 MG tablet 2018-09-01 13:25:16 Ye s 200mg Q.5D Take 200 mg by mouth 2 (two) times a day. George Cabrera butalb/acetaminophen/caffeine (WHRFBIQUYN-TVOZHCAZPWRYB-DLOY ORAL) 2018-09-01 13:25:16 Yes Q6H Take by mouth every 6 (six) h ours as needed. George Cabrera levothyroxine (SYNTHROID, LEVOXYL) 25 mcg tablet 2018-09-01 13:25:16 Yes 25ug QD Take 25 mcg by mouth every morning. George Cabrera hydroCHLOROthiazide (HYDRODIURIL) 25 MG tablet 2018-09-01 13:25: 16 Yes 25mg QD Take 25 mg by mouth every morning. George Cabrera amLODIPine (NORVASC) 5 mg tablet 2018-09-01 13:25:16 Yes 5mg Q.5D Take 5 mg by mouth 2 (two) times a day. George Cabrera fluticasone (FLONASE) 50 mcg/actuation nasal spray 2018-08 13:25:16 Yes 2{spray} QD 2 sprays by Each Nare route every mornin g. George Cabrera multivitamin with minerals tablet 2018-09-01 13:25:16 Yes 1{tbl} QD Take 1 tablet by mouth daily. George Capps st Allopurinol Allopurinol Yes 100 Daily [facility] Amlodipine Besylate Amlodipine Besylate Yes 5 Daily [facility] Aspirin (Aspir 81) 81 Mg TABLET. Aspirin (Aspir 81) 81 Mg TABLET. Yes 81 Daily [facility] Atorvastatin Calcium Atorvastatin Calcium Yes 20 Bedtime [facility] Calcipotriene Calcipotriene Yes Daily [facility] Colestipol Hcl,Micronized (Colestipol Hcl) 1 Gm TABLET Colestipol Hcl,Micronized (Colestipol Hcl) 1 Gm TABLET Yes 1 Daily [facility] Diazepam Diazepam Yes 5 Three Times A Day [facility] Fluticasone Propionate Fluticasone Propionate Yes Daily [facility] Hydrochlorothiazide Hydrochlorothiazide Yes 25 Daily [facility] Hydroxyzine Hcl Hydroxyzine Hcl Yes 25 Three Ti mes A Day [facility] Lamotrigine Lamotrigine Yes 200 Twice A Day [facility] Leflunomide Leflunomide Yes 20 Daily [facility] Levothyroxine Sodium (Synthroid) 25 Mcg TABLET Levothy roxine Sodium (Synthroid) 25 Mcg TABLET Yes 50 Daily [facility] Metformin Hcl Metformin Hcl Yes 500 Daily [facility] Metoprolol Succinate Metoprolol Succinate Yes 25 Twice A Day [facility] Pantoprazole Sodium (Protonix) 40 Mg TABLET. Pantopr azole Sodium (Protonix) 40 Mg TABLET. Yes 40 Daily [facility] Quetiapine Fumarate (Seroquel) 50 Mg TABLET Quetiapine Fumarate (Seroquel) 50 Mg TABLET Yes [address] [facility] Valbenazine Tosylate (Ingrezza) 40 Mg CAPSULE Valbenaz ine Tosylate (Ingrezza) 40 Mg CAPSULE Yes Daily [facility] Valsartan (Diovan) 160 Mg TAB Valsartan (Diovan) 160 Mg TAB Yes 320 Twice A Day [facility] Vit D3 Vit D3 Yes [address] [facility] Sucralfate (Carafate) 1 Gm/10 Ml ORAL.SUSP Sucralfate (Carafate) 1 Gm/10 Ml ORAL.SUSP 2019-07-14 00:00:00 No 1 Twice A Day [facility] Clonazepam (Klonopin) 0.5 Mg TABLET Clonazepam (Klonopin) 0.5 Mg TABLET 2019-07-11 00:00:00 No 2.25 Bedtime [facility] Hydralazine Hcl Hydralazine Hcl 2019-07-11 00:00:00 No 50 As Needed [facility] Ranitidine Hcl Ranitidine Hcl 2019-07-11 00:00:00 No 150 Twice A Day [facility] Venlafaxine Hcl (Effexor Xr 37.5MG Capcr*) 37.5 Mg CAP CR Venlafaxine Hcl (Effexor Xr 37.5MG Capcr*) 37.5 Mg CAPCR 2019-07-11 00:00:00 No 1 Daily [facility] Clonazepam (Klonopin) 0.5 Mg TABLET Clonazepam (Klonopin) 0.5 Mg TABLET 2018-09-29 00:00:00 No .25 Twice A Day as neede d for Anxiety [facility] Iron/Fa/B12/C/Docusate Sodium (Ferraplus 90 Tablet) 1 Each TABLET Iron/Fa/B12/C/Docusate Sodium (Ferraplus 90 Tablet) 1 Each TABLET 2018-09-29 00:00:00 No 1 Daily [facility] Montelukast Sodium Montelukast Sodium 2018-09-29 00:00:00 No 10 Daily [facility] Simvastatin (Zocor) 20 Mg TABLET Simvastatin (Zocor) 20 Mg TABLE T 2018-09-29 00:00:00 No 20 Bedtime [facility] Clonazepam Clonazepam 2018-07-18 00:00:00 No .25 Bed time [facility] Estradiol (Evamist) 8.1 Ml SPRAY Estradiol (Evamist) 8.1 Ml SPRA Y 2018-07-18 00:00:00 No 2 Daily [facility] Fluticasone Propionate Fluticasone Propionate 2018-07-18 00:00:00 No 2 Daily [facility] Hydrochlorothiazide Hydrochlorothiazide 2018-07-18 00:00:00 No 25 Daily [facility] Lisinopril (Prinivil) 20 Mg TABLET Lisinopril (Prinivil) 20 Mg T ABLET 2018-07-18 00:00:00 No 40 Daily [facility] Multivitamin (Multi-Vitamin Daily) 1 Each TABLET Multi vitamin (Multi-Vitamin Daily) 1 Each TABLET 2018-07-18 00:00:00 No 1 Monisha ly [facility] Pantoprazole Sodium (Protonix) 40 Mg TABLET. Pantopr azole Sodium (Protonix) 40 Mg TABLET. 2018-07-18 00:00:00 No 40 Daily [facility] Amlodipine Besylate (Norvasc) 5 Mg TAB Amlodipine Besylate (Norv asc) 5 Mg TAB 2017-11-06 00:00:00 No 5 Daily [facility] Estradiol (Elestrin) 144 Gm GEL.DIRECTOR OF PHYSICAL EDUCATION Estradiol (Elestrin) 144 Gm GEL.DIRECTOR OF PHYSICAL EDUCATION 2017-11-06 00:00:00 No As Directed [facility] Fenofibric Acid (Choline) (Trilipix) 135 Mg CAPSULE. Fenofibric Acid (Choline) (Trilipix) 135 Mg CAPSULE. 2017-11-06 00:00:00 No 135 Daily [facility] Lamotrigine Lamotrigine 2017-11-06 00:00:00 No 100 B edtime [facility] Nebivolol Hcl (Bystolic) 20 Mg TABLET Nebivolol Hcl (Bystolic) 2 0 Mg TABLET 2017-11-06 00:00:00 No 20 Daily [facility] Ondansetron Hcl Ondansetron Hcl 2017-11-06 00:00:00 No 8 Every 8 Hours as needed for Nausea [facility] Sucralfate Sucralfate 2017-11-06 00:00:00 No 1 Monisha ly [facility] Trazodone Hcl Trazodone Hcl 2017-11-06 00:00:00 No 50 Bedtime as needed for Insomnia [facility] Venlafaxine Hcl (Venlafaxine Hcl Er) 37.5 Mg CAP.ER.24 H Venlafaxine Hcl (Venlafaxine Hcl Er) 37.5 Mg CAP.ER.24H 2017-11-06 00:00:00 No 1 Daily [facility] Gabapentin Gabapentin 2016-06-16 00:00:00 No 100 Monisha ly [facility] Nebivolol Hcl (Bystolic) 10 Mg TABLET Nebivolol Hcl (Bystolic) 1 0 Mg TABLET 2016-06-16 00:00:00 No 20 Twice A Day [facility] Venlafaxine Hcl (Venlafaxine Hcl Er) 75 Mg CAP.ER.24H Venlafaxine Hcl (Venlafaxine Hcl Er) 75 Mg CAP.ER.24H 2016-06-16 00:00:00 No 75 Daily [facility] Unknown Bp Med Unknown Bp Med 2016-04-19 00:00:00 No 1 Daily [facility] Metoprolol Tartrate Metoprolol Tartrate 2016-04-07 00:00:00 No 50 Twice A Day [facility] Colestipol Hcl,Micronized (Colestipol Hcl) 1 Gm TABLET Colestipol Hcl,Micronized (Colestipol Hcl) 1 Gm TABLET 2016-04-04 00:00:00 No 1 Daily [facility] Metformin Hcl Metformin Hcl 2016-04-04 00:00:00 No 850 Daily [facility] Mometasone Furoate (Nasonex) 17 Gm SPRAY Mometasone Fu roate (Nasonex) 17 Gm SPRAY 2016-04-04 00:00:00 No Daily [facility] Omeprazole Magnesium (Prilosec Otc) 20 Mg TABLET.DR Darling eprazole Magnesium (Prilosec Otc) 20 Mg TABLET. 2016-04-04 00:00:00 No 20 Daily [facility] Amlodipine Besylate Amlodipine Besylate 2016-02-26 00:00:00 No 5 Daily [facility] Diphenoxylate Hcl/Atropine (Lomotil Tablet) 1 Each TAB LET Diphenoxylate Hcl/Atropine (Lomotil Tablet) 1 Each TABLET 2016-02-26 00:00:00 No 1 Every 4 Hours as needed for Diarrhea [facility] Fenofibrate (Tricor) 145 Mg TAB Fenofibrate (Tricor) 145 Mg TAB 2016-02-26 00:00:00 No 145 Daily [facility] Hyoscyamine Sulfate Hyoscyamine Sulfate 2016-02-26 00:00:00 No [facility] Levofloxacin (Levaquin) 500 Mg TABLET Levofloxacin (Levaquin) 50 0 Mg TABLET 2016-02-26 00:00:00 No 750 Daily [facility] Melatonin Melatonin 2016-02-26 00:00:00 No 1 Bedti me [facility] Ondansetron (Zofran Odt) 4 Mg TAB.RAPDIS Ondansetron ( Zofran Odt) 4 Mg TAB.RAPDIS 2016-02-26 00:00:00 No 4 E very 4 Hours as needed for Nausea And Vomiting [facility] Pro Air Pro Air 2016-02-26 00:00:00 No Daily [facility] Quetiapine Fumarate (Seroquel) 25 Mg TABLET Quetiapine Fumarate (Seroquel) 25 Mg TABLET 2016-02-26 00:00:00 No 5 Daily [facility] Lisinopril Lisinopril 2014-11-05 00:00:00 No 10 Monisha ly [facility] Amlodipine Besylate Amlodipine Besylate 2014-07-25 00:00:00 No 10 Daily [facility] Dexlansoprazole (Dexilant) 60 Mg CAP. Dexlansopra zole (Dexilant) 60 Mg CAP. 2014-07-25 00:00:00 No 60 Daily [facility] Butalb/Acetaminophen/Caffeine (Esgic-Plus Tablet) 1 Ea ch TABLET Butalb/Acetaminophen/Caffeine (Esgic-Plus Tablet) 1 Each TABLET 2014-05-12 00:00:00 No Prn Q 4HRS [facility] Divalproex Sodium (Depakote Er) 500 Mg TAB.SR.24H Diva lproex Sodium (Depakote Er) 500 Mg TAB.SR.24H 2014-05-12 00:00:00 No 2 Be dtime [facility] Fenofibric Acid (Choline) (Trilipix) 135 Mg CAPSULE. Fenofibric Acid (Choline) (Trilipix) 135 Mg CAPSULE. 2014-05-12 00:00:00 No Daily [facility] Fluoxetine Hcl (Prozac) 20 Mg CAPSULE Fluoxetine Hcl (Prozac) 20 Mg CAPSULE 2014-05-12 00:00:00 No 3 Daily [facility] Lorazepam (Ativan) 0.5 Mg TABLET Lorazepam (Ativan) 0.5 Mg TABLE T 2014-05-12 00:00:00 No 1 Daily [facility] Lorazepam (Ativan) 1 Mg TABLET Lorazepam (Ativan) 1 Mg TABLET 2014-05-12 00:00:00 No 1 Bedtime [facility] Olmesartan/Hydrochlorothiazide (Benicar Hct 20-12.5 Mg Tablet) 1 Each TABLET Olmesartan/Hydrochlorothiazide (Benicar Hct 20-12.5 Mg Tablet) 1 Each TABLET 2014-05-12 00:00:00 No Daily [facility] Rosuvastatin Calcium (Crestor) 20 Mg TABLET Rosuvastat in Calcium (Crestor) 20 Mg TABLET 2014-05-12 00:00:00 No Daily [facility] Zolpidem Tartrate (Ambien) 10 Mg TABLET Zolpidem Tartrate (A mbien) 10 Mg TABLET 2014-05-12 00:00:00 No Bedtime [facility] Vital Signs Vital Name Observation Time Observation Value Comments Source Body Temperature 2020-07-04 11:12:00 98.5 [degF] [facility] BMI (Body Mass Index) 2020-06-30 19:14:00 28.2 kg/m2 [facility] Weight 2020-06-30 15:52:00 175 [lb_av] [facility] Procedures This patient has no known procedures. Plan of Care Planned Activity Planned Date Details Comments Source Future Scheduled Test 2020-07-23 00:00:00 BREAST CANCER SCRE ENING [code = BREAST CANCER SCREENING] [facility] Scheduled Test 2020-04-21 00:00:00 INFLUENZA VACCINE [code = INFLUENZA VACCINE] [facility] Scheduled Test 2015 00:00:00 COLONOSCOPY SCREEN ING [code = COLONOSCOPY SCREENING] [facility] Scheduled Test 2015 00:00:00 SHINGLES VACCINES (#1) [code = SHINGLES VACCINES (#1)] George Cabrera [facility] Scheduled Test 1986 00:00:00 Screening for natan gnant neoplasm of cervix (procedure) [code = 719740274] George Irvin Pacemaker [facility] Encounters Start Date/Time End Date/Time Encounter Type Admission Type Attendi [facility] Care Department Encounter ID Source 2020-06-30 16:36:00 2020-07-04 16:08:00 Discharged Inpatient 1 YURIY BRYSON [facility] [id number] [facility] 2020-06-07 12:26:44 2020-06-07 14:15:56 Office Visit Marely Sanchez [facility] [id number] 2020-06-05 11:52:00 2020-06-05 12:52:00 Office Visit Marely Sanchez [facility] [id number] 2020-05-31 12:04:53 2020-05-31 13:37:51 Office Visit Marely Sanchez [facility] [id number] 2020-05-29 13:34:14 2020-05-29 15:44:40 Office Visit Marely Sanchez [facility] [id number] 2020-05-25 11:39:28 2020-05-25 12:39:28 Office Visit Marely Sanchez [facility] [id number] 2020-05-23 11:24:21 2020-05-23 12:24:21 Office Visit Marely Sanchez Yony [facility] [id number] 2020-05-17 14:54:59 2020-05-17 15:54:59 Office Visit Marely Sanchez Yony [facility] [id number] 2020-05-15 11:32:30 2020-05-15 13:04:19 Office Visit Marely Sanchez Yony Brenda [facility] [id number] 2020-05-10 13:44:43 2020-05-10 14:44:43 Office Visit Brandy namrataMandiblaine Bhakta Brenda [facility] [id number] 2020-05-08 10:39:15 2020-05-08 12:16:25 Office Visit Marely Sanchez Yony Brenda [facility] [id number] 2020-05-01 14:37:47 2020-05-01 16:04:43 Office Visit Marely Sanchez Yony [facility] [id number] 2020-04-25 11:33:15 2020-04-25 14:18:33 Office Visit Brandy namrataMandiblaine Bhakta Brenda [facility] [id number] 2020-04-02 13:08:58 2020-04-02 13:44:37 Office Visit Georges Zimmerman [facility] [id number] 2019-10-27 12:36:30 2019-10-27 15:04:07 Office Visit Chandler Ruby [facility] [id number] 2019-10-17 13:51:39 2019-10-17 16:28:46 Office Visit SandraSunny persaud [facility] [id number] 2019-07-25 19:03:00 2019-07-25 19:03:00 Outpatient [facility] [facility] 2018-03-23 14:50:00 2018-03-24 18:34:00 Discharged Inpatient 1 JETHRO CHAPMAN [facility] [id number] [facility] 2017-11-07 12:45:00 2017-11-07 12:45:00 Registered Surgical Day Care [facility] [id number] [facility] 2017-07-03 10:20:00 2017-07-03 10:20:00 Registered Clinic RAINE GAUTHIER [facility] [id number] [facility] Results Test Description Test Time Test Comments Results Result Comments Source CHEST XRAY POST PROCEDURE 2020-07-04 13:53:00 [facility] : 1965 Sex: F [facility] [address] [address] Patient Name: PARK ELLSWORTH MR #: [id number] : 1965 Age/Sex: 55/F Req #: [id number] Adm Physician: YURIY BRYSON MD Ordered by: YURIY BRYSON MD Report #: [id number] Location: [facility] Room/Bed: [place] [address] Procedure: [id number] DX/CHEST XRAY POST PROCEDURE Exam Date: Exam Time: REPORT STATUS: Signed Chest, 1 view, 07/04/2020. Hist ory: Pacemaker placement. Comparison: 06/30/2020. Findings: The cardiomediastinal silhouette and pulmonary vasculature are within normal limits for a portable exam. There is no focal consolidation or pleural effusion. A new left subclavian dual-lead pacer is present. There is no evidence of pneumothorax. There are no acute osseous or soft tissue abnormalities. Impression: No acute cardiopulmonary abnormality. Signed by: Brady Méndez on 07/04/2020 1:54 PM Dictated By: BRADY MÉNDEZ MD [id number] Transcribed By: BENNIE on 07/04/20 0543 COPY TO: YURIY BRYSON MD Capillary blood glucose measurement by glucometer (mas s/volume) 2020-07-04 08:19:00 Test Item Bedside Glucose (test code = 53202-5) 132 70-120 Meter ID: [id number] or plasma sodium measurement (moles/volume)2020-07-02 04:38:00* Test Item Value Reference Range Interpretation Comments Sodium Level (test code = 2951-2) 139 136-145 [facility] plasma potassium measurement (moles/volume)2020-07-02 04:38:00* Test Item Value Reference Range Interpretation Comments Potassium Level (test code = 2823-3) 3.9 3.5-5.1 [facility] or plasma chloride measurement (moles/volume)2020-07-02 04:38:00* Test Item Value Reference Range Interpretation Comments Chloride Level (test code = 2075-0) 99 98-107 [facility] or plasma carbon dioxide, total measurement (moles/volume)2020-07-02 04:38:00* Test Item Value Reference Range Interpretation Comments Carbon Dioxide Level (test code = 2028-9) 24 22-29 [facility] or plasma anion [id number] 04:38:00* Test Item Value Reference Range Interpretation Comments Anion Gap (test code = 14795-2) 19.9 8-16 [facility] or plasma urea nitrogen measurement (mass/volume)2020-07-02 04:38:00* Test Item Value Reference Range Interpretation Comments Blood Urea Nitrogen (test code = 3094-0) 32 7-26 [facility] or plasma creatinine measurement (mass/volume)2020-07-02 04:38:00* Test Item Value Reference Range Interpretation Comments Creatinine (test code = 2160-0) 1.95 0.57-1.11 [facility] or plasma urea nitrogen/creatinine mass [id number] 04:38:00* Test Item Value Reference Range Interpretation Comments BUN/Creatinine Ratio (test code = 3097-3) 16 6-25 [facility] (GFR) [id number] 04:38:00* Test Item Value Reference Range Interpretation Comments Estimat Glomerular Filtration Rate (test code = 585550037) 27 >60 Ranges were taken from the National Kidney Disease Education Program and the [facility] literature.Reference ranges:60 or greater: Eeevqp22-03 ( for 3 consecutive months): Chronic kidney disease 15 or less: Kidney failureBro[facility] Medical CenterGlucose [id number] 04:38:00* Test Item Value Reference Range Interpretation Comments Glucose Level (test code = FLC1956) 156 74-118 [facility] or plasma calcium measurement (mass/volume)2020-07-02 04:38:00* Test Item Value Reference Range Interpretation Comments Calcium Level (test code = 06747-7) 9.5 8.4-10.2 [facility] automated count (number/volume)2020-07-01 05:15:00* Test Item Value Reference Range Interpretation Comments White Blood Count (test code = 6690-2) 6.82 4.8-10.8 [facility] erythrocytes automated count (number/volume)2020-07-01 05:15:00* Test Item Value Reference Range Interpretation Comments Red Blood Count (test code = 789-8) 4.40 3.6-5.1 [facility] measurement (moles/volume)2020-07-01 05:15:00* Test Item Value Reference Range Interpretation Comments Hemoglobin (test code = 82145-0) 13.1 12.0-16.0 [facility] hematocrit (volume fraction)2020-07-01 05:15:00* Test Item Value Reference Range Interpretation Comments Hematocrit (test code = 4544-3) 39.8 34.2-44.1 [facility] Center[facility] erythrocyte mean corpuscular [id number] 05:15:00* Test Item Value Reference Range Interpretation Comments Mean Corpuscular Volume (test code = 787-2) 90.5 81-99 [facility] CenterAutomated erythrocyte mean corpuscular hemoglobin (mass per erythrocyte)2020-07-01 05:15:00* Test Item Value Reference Range Interpretation Comments Mean Corpuscular Hemoglobin (test code = 785-6) 29.8 28-32 [facility] CenterAutomated erythrocyte mean corpuscular hemoglobin concentration measurement (mass/volume)2020-07-01 05:15:00* Test Item Value Reference Range Interpretation Comments Mean Corpuscular Hemoglobin Concent (test code = 786-4) 32.9 31-35 [facility] CenterRDW WffSk-Jdk0926-34-11 05:15:00* Test Item Value Reference Range Interpretation Comments Red Cell Distribution Width (test code = 93923-8) 12.6 11.7 -14.4 [facility] CenterAutomated blood platelet count (count/volume)2020-07-01 05:15:00* Test Item Value Reference Range Interpretation Comments Platelet Count (test code = 777-3) 339 140-360 [facility] CenterAutomated blood segmented neutrophil count as percentage of total jqqsofdtsy4870-95-85 05:15:00* Test Item Value Reference Range Interpretation Comments Neutrophils (%) (Auto) (test code = 68720-7) 53.8 38.7-80.0 [facility] CenterAutomated blood lymphocyte count as percentage ot total sspjcztnvu2698-94-11 05:15:00* Test Item Value Reference Range Interpretation Comments Lymphocytes (%) (Auto) (test code = 736-9) 33.1 18.0-39.1 [facility] CenterAutomated blood monocyte count as percentage of total nagwfqxofe3744-20-77 05:15:00* Test Item Value Reference Range Interpretation Comments Monocytes (%) (Auto) (test code = 5905-5) 7.9 4.4-11.3 [facility] CenterAutomated blood eosinophil count as percentage of total zrqurcappk1929-59-11 05:15:00* Test Item Value Reference Range Interpretation Comments Eosinophils (%) (Auto) (test code = 713-8) 4.5 0.0-6.0 [facility] CenterAutomated blood basophil count as percentage of total dntzlxmsfy6320-77-03 05:15:00* Test Item Value Reference Range Interpretation Comments Basophils (%) (Auto) (test code = 706-2) 0.4 0.0-1.0 [facility] CenterFluoroscopic procedure less than one hour njspdteo9832-35-12 05:15:00* Test Item Value Reference Range Interpretation Comments IM GRANULOCYTES % (test code = IM GRANULOCYTES %) 0.3 0.0- 1.0 [facility] CenterAutomated blood neutrophil count 2020-07-01 05:15:00* Test Item Value Reference Range Interpretation Comments Neutrophils # (Auto) (test code = 751-8) 3.7 2.1-6.9 [facility] CenterBlood lymphocytes count (number/volume) 2020-07-01 05:15:00* Test Item Value Reference Range Interpretation Comments Lymphocytes # (Auto) (test code = 99078-6) 2.3 1.0-3.2 [facility] CenterBlood monocytes automated count (number/volume)2020-07-01 05:15:00* Test Item Value Reference Range Interpretation Comments Monocytes # (Auto) (test code = 742-7) 0.5 0.2-0.8 [facility] CenterAutomated blood eosinophil count 2020-07-01 05:15:00* Test Item Value Reference Range Interpretation Comments Eosinophils # (Auto) (test code = 711-2) 0.3 0.0-0.4 [facility] CenterAutomated blood basophil count (count/volume)2020-07-01 05:15:00* Test Item Value Reference Range Interpretation Comments Basophils # (Auto) (test code = 704-7) 0.0 0.0-0.1 [facility] CenterFluoroscopic procedure less than one hour uutpilec2566-25-54 05:15:00* Test Item Value Reference Range Interpretation Comments Absolute Immature Granulocyte (auto (yo t code = Absolute Immature Granulocyte (auto) 0.02 0-0.1 [facility] or plasma total bilirubin measurement (mass/volume)2020-07-01 04:45:00* Test Item Value Reference Range Interpretation Comments Total Bilirubin (test code = 1975-2) 0.3 0.2-1.2 [facility] CenterFluoroscopic procedure less than one hour dhdocoih5903-06-35 04:45:00* Test Item Value Reference Range Interpretation Comments Aspartate Amino Transf (AST/SGOT) (test code = Aspartate Amino Transf (AST/SGOT)) 36 5-34 [facility] or plasma alanine aminotransferase measurement (enzymatic activity/volume)2020-07-01 04:45:00* Test Item Value Reference Range Interpretation Comments Alanine Aminotransferase (ALT/SGPT) (test code = 1742-6) 40 0-55 [facility] or plasma protein measurement (mass/volume)2020-07-01 04:45:00* Test Item Value Reference Range Interpretation Comments Total Protein (test code = 2885-2) 6.9 6.5-8.1 [facility] or plasma albumin measurement (mass/volume)2020-07-01 04:45:00* Test Item Value Reference Range Interpretation Comments Albumin (test code = 1751-7) 3.9 3.5-5.0 [facility] CenterPlasma globulin measurement (mass/volume) 2020-07-01 04:45:00* Test Item Value Reference Range Interpretation Comments Globulin (test code = 90029-5) 3.0 2.3-3.5 [facility] or plasma albumin/globulin mass ldnpt7907-73-53 04:45:00* Test Item Value Reference Range Interpretation Comments Albumin/Globulin Ratio (test code = 1759-0) 1.3 0.8-2.0 [facility] or plasma alkaline phosphatase measurement (enzymatic activity/volume)2020-07-01 04:45:00* Test Item Value Reference Range Interpretation Comments Alkaline Phosphatase (test code = 6768-6) 200 40-150 [facility] or plasma triglyceride measurement (mass/volume)2020-07-01 04:45:00* Test Item Value Reference Range Interpretation Comments Triglycerides Level (test code = 2571-8) 213 0-149 [facility] or plasma cholesterol measurement (mass/volume)2020-07-01 04:45:00* Test Item Value Reference Range Interpretation Comments Cholesterol Level (test code = 2093-3) 193 0-199 Less than 200 mg/dL Low Wcpk853 - 239 mg/dL Borderline Pkhz879 m g/dl and greater High Risk [facility] or plasma cholesterol in LDL measurement (mass/volume) 2020-07-01 04:45:00* Test Item Value Reference Range Interpretation Comments LDL Cholesterol (test code = 2089-1) 104 60-130 [facility] or plasma cholesterol in HDL measurement (mass/volume)2020-07-01 04:45:00* Test Item Value Reference Range Interpretation Comments HDL Cholesterol (test code = 2085-9) 46 40-60 [facility] or plasma total cholesterol/cholesterol in HDL mass opeii5391-83-44 04:45:00* Test Item Value Reference Range Interpretation Comments Cholesterol/HDL Ratio (test code = 9830-1) 4.2 3.0-3.6 [facility] or plasma creatine kinase measurement (enzymatic activity/volume)2020-07-01 04:45:00* Test Item Value Reference Range Interpretation Comments Creatine Kinase (test code = 2157-6) 48 29-168 [facility] or plasma creatine kinase MB measurement (mass/volume)2020-07-01 04:45:00* Test Item Value Reference Range Interpretation Comments Creatine Kinase MB (test code = 67335-6) 0.40 0-5.0 [facility] CenterTroponin I measurement by highly sensitive enzyme dmiakzwmoif3865-74-73 04:45:00* Test Item Value Reference Range Interpretation Comments Troponin I (test code = 26825-9) < 0.001 0-0.300 [facility] CenterCHEST SINGLE (PORTABLE)2020-06-30 17:53:00 [facility] [address] [address] Patient Name: PARK ELLSWORTH MR #: [id number] : 1965 Age/Sex: 55/F Req #: [id number] Adm Physician: DALJIT ALFONSO MD Ordered by: TONY TOMPKINS MD Report #: [id number] Location: [facility] Room/Bed: [place] [address] Procedure: [id number] DX/CHEST SINGLE (PORTABLE) Exam Date: 06/30/20 Exam Time: 164 0 REPORT STATUS: Signed EXAMINAT ION: CHEST SINGLE (PORTABLE) INDICATION: Shortness of breath and chest pain. COMPARISON: Chest x-ray on 07/18/2018. FINDINGS: TUBES and LINES: Loop recorder projecting over the heart. LUNGS: Normal lung volumes. There are prominent interstitial lung markings and hazy opacifi cation of the bilateral lung bases. PLEURA: No pleural effusion or pneum othorax. HEART AND MEDIASTINUM: The cardiomediastinal silhouette is enlarg ed. BONES AND SOFT TISSUES: No acute osseous lesion. Soft tissues are u nremarkable. UPPER ABDOMEN: No free air under the diaphragm. IMPRE SSION: 1. Cardiomegaly with mild interstitial pulmonary edema. 2. Hazy opacification of the bilateral lung bases may represent atelectasis and/or mu ltifocal pneumonia in the proper clinical context. Signed by: Mynor Shah MD on 06/30/2020 5:55 PM Dictated By: MYNOR SHAH MD 54 Transcribed By: BENNIE on 1754 COPY TO: TONY TOMPKINS MD Urine color determination 2020-06-30 16:12:00* Test Item Value Reference Range Interpretation Comments Urine Color (test code = 5778-6) YELLOW YELLOW [facility] CenterUrine qgskzbb2042-64-95 16:12:00* Test Item Value Reference Range Interpretation Comments Urine Clarity (test code = 29602-9) HAZY CLEAR [facility] Westpecific gravity of Urine by Test strip 2020-06-30 16:12:00* Test Item Value Reference Range Interpretation Comments Urine Specific [place] (test code = 5811-5) 1.025 1.010-1.02 5 [facility] CenterUrine pH measurement by automated test qphmg0339-78-04 16:12:00* Test Item Value Reference Range Interpretation Comments Urine pH (test code = 55113-8) 6 5-7 [facility] CenterUrine leukocyte esterase detection by pvxwqrsl6472-81-88 16:12:00* Test Item Value Reference Range Interpretation Comments Urine Leukocyte Esterase (test code = 5799-2) SMALL NEGATIVE [facility] CenterUrine nitrite mxjsaoyer1295-30-79 16:12:00* Test Item Value Reference Range Interpretation Comments Urine Nitrite (test code = 68321-2) NEGATIVE NEGATIVE [facility] CenterUrine protein measurement by test strip (mass/volume)2020-06-30 16:12:00* Test Item Value Reference Range Interpretation Comments Urine Protein (test code = 5804-0) 2+ NEGATIVE [facility] CenterUrine glucose yssxqfpql3268-24-22 16:12:00* Test Item Value Reference Range Interpretation Comments Urine Glucose (UA) (test code = 2349-9) NEGATIVE NEGATIVE [facility] CenterUrine ketones detection by automated test mvawg8026-82-72 16:12:00* Test Item Value Reference Range Interpretation Comments Urine Ketones (test code = 36507-1) NEGATIVE NEGATIVE [facility] CenterUrine urobilinogen measurement by test strip (mass/volume)2020-06-30 16:12:00* Test Item Value Reference Range Interpretation Comments Urine Urobilinogen (test code = 48707-4) 0.2 0.2-1 [facility] CenterUrine total bilirubin measurement (mass/volume)2020-06-30 16:12:00* Test Item Value Reference Range Interpretation Comments Urine Bilirubin (test code = 1978-6) NEGATIVE NEGATIVE [facility] CenterUrine erythrocytes vgvkjrzul1042-44-86 16:12:00* Test Item Value Reference Range Interpretation Comments Urine Blood (test code = 40881-1) SMALL NEGATIVE [facility] CenterAutomated urine sediment leukocyte count by microscopy (number/high power field)2020-06-30 16:12:00* Test Item Value Reference Range Interpretation Comments Urine WBC (test code = 5821-4) 21-50 0-5 [facility] CenterErythrocytes detection in urine sediment by light wgwfegzqww5650-99-04 16:12:00* Test Item Value Reference Range Interpretation Comments Urine RBC (test code = 57755-6) 6-10 0-5 [facility] CenterBacteria detection in urine sediment by light eymmyfgigu3023-52-36 16:12:00* Test Item Value Reference Range Interpretation Comments Urine Bacteria (test code = 95905-1) FEW NONE [facility] CenterEpithelial cells detection in urine sediment by light manixpixcy0447-73-08 16:12:00* Test Item Value Reference Range Interpretation Comments Urine Epithelial Cells (test code = 11954-5) FEW NONE [facility] CenterProthrombin time (PT) in platelet poor plasma by coagulation ydide8202-21-02 15:55:00* Test Item Value Reference Range Interpretation Comments Prothrombin Time (test code = 5902-2) 12.5 11.9-14.5 [facility] CenterINR in Platelet poor plasma by Coagulation cbwzh8392-19-64 15:55:00* Test Item Value Reference Range Interpretation Comments Prothromb Time International Ratio (test code = 6301-6) 0.89 Oral Anticoagulant Therapy INR Values:1. Low Intensity Therapy 1.5 - 2.02 . Moderate Intensity Therapy 2.0 - 3.03. High Intensity Therapy(1) 2.5 - 3. 54. High Intensity Therapy(2) 3.0 - 4.05. Panic Value INR > 5.0 [facility] CenterActivated partial thromboplastin time (aPTT) in platelet poor plasma by coagulation dobfh2700-45-40 15:55:00* Test Item Value Reference Range Interpretation Comments Activated Partial Thromboplast Time (test code = 55496-9) 27.4 23.8-35.5 [facility] or plasma magnesium measurement (mass/volume)2020-06-30 15:55:00* Test Item Value Reference Range Interpretation Comments Magnesium Level (test code = 88780-4) 1.9 1.3-2.1 [facility] CenterBNP Yuy-gSdu9918-00-10 15:55:00* Test Item Value Reference Range Interpretation Comments B-Type Natriuretic Peptide (test code = 55887-0) 40.3 0-100 [facility] AZN[facility]94[facility] 15:51:00 [facility] [address] [address] Patient Name: PARK ELLSWORTH MR #: [id number] : 08/1965 Age/Sex: 54/F Req #: [id number] Adm Physician: Ordered by: HERMELINDA ASENCIO M.D. Report #: [id number] Location: MRI Room/Bed: Procedure: 1 -0011 MRI/MRI BRAIN WOW Exam Date: Exam Time: REPORT STATUS: Signed History: He meloches Comparison studies: None Technique: Pre-contrast: Sagittal T2; axial T1-IR, MPGR, DWI, T2 FLAIR Post-contrast: axial and coronal T1. Intra venous contrast: 17 cc of MultiHance Findings: Scalp: No abnormal sign al. No masses. Bone marrow: Normal in signal intensity. Brain sulci: Ellen ropriate for age. Ventricles: Normal in size . No hydrocephalus. Extra-ax ial: No masses, fluid collections or hemorrhage. Parenchyma: No abnorma l signal intensities. No masses, hemorrhage, acute or chronic vascular insults . No enhancing abnormalities. Suprasellar region: No abnormalities. Endoscopic Technician niocervical junction: No abnormalities. Patent foramen magnum. No Chiari one malformation.. Vessels: Normal flow-voids in the arteries and sinuses. I ncidental findings: None IMPRESSION: 1. No abnormalities Signed by: DR Ki Pagan M.D. on 06/21/2019 3:53 PM Dictated By: KI CARMONA MD 52 COPY TO: HERMELINDA PATRICIA M.D. CHEST 2 BSHNP8073-37-26 12:04:00 [address] [address] Patient Name: PARK ELLSWORTH MR #: [id number] : 1965 Age/Sex: 53/F Req #: [id number] Adm Physician: Ordered by: BLANCHE MATTHEWS NP Report #: [id number] Location: ER Room/Bed: Procedure: 1028-001 6 DX/CHEST 2 VIEWS Exam Date: 07/18/18 Exam Time: 11 40 REPORT STATUS: Signed EXAMINA TION: CHEST 2 VIEWS INDICATION: Dizziness, headache COMPARISON: None available FINDINGS: PA and lateral views TUBES and LINES: None. LUNGS: Lungs are well inflated. There is no evidence of pneumonia o r pulmonary edema. PLEURA: No pleural effusion or pneumothorax. HEA RT AND MEDIASTINUM: The heart is mildly enlarged. No hilar lymphadenopathy. P ulmonary vascular markings are normal. BONES AND SOFT TISSUES: No focal osseous lesions. Soft tissues are unremarkable. UPPER ABDOMEN: No free air under the diaphragm. Cholecystectomy clips are present. IMPRESSION: Mild cardiomegaly. No acute pulmonary process. Signed by: Dr. Juan C Clark MD on 07/18/2018 12:05 PM Dictated By: JUAN C CLARK MD E lectronically Signed By: JUAN C CLARK MD on 07/18/18 1205 Transcribed By: BENNIE on 07/18/181204 COPY TO: BLANCHE MATTHEWS HYDROPULPER CT BRAIN WO 2018-07-18 11:48:00 [facility] [address] [address] Patient Name: PARK ELLSWORTH MR #: [id number] : 1965 Age/Sex: 53/F Req #: [id number] Adm Physician: Ordered by: BLANCHE MATTHEWS NP Report #: [id number] Location: ER Room/Bed: Procedure: 1028-[address]/CT BRAIN WO Exam Date: Exam Time: REPORT STATUS: Signed Exam: Noncontrast Head CT History: 53-year-old female with increased blood pressure, headache and dizziness beginning today Comparison studies: Head CT from 03/22/2018 Technique: Axial images were obtained from the skull base to the vertex. Coronal and sagittal reconstructions obtained from the axial data. Dose m odulation, iterative reconstruction, and/or weight based adjustment of the mA /kV was utilized to reduce the radiation dose to as low as reasonably achieva ble. Findings: Scalp/skull: No abnormalities. No fractures, blastic or lytic lesions. Extra-axial spaces: No masses. No fluid collections. Brain sulci: Appropriate for age. Ventricles: Normal in size and configu ration. No hydrocephalus. Parenchyma: No abnormal densities. No jose s, hemorrhage, acute or chronic cortical vascular insults. Sellar/suprasell ar region: No abnormalities Craniocervical junction: Patent foramen magnum. N o Chiari one malformation. IMPRESSION: 1. No abnormalities. 2. No changes when compared to the most recent head CT on 04-[address] (by repo rts) that date back to 12/12/2008. Preliminary report dictated by Dr. Heron Mckoy, Neuroradiology Fellow. A final report by the attending radiologi st will follow. Signed by: Dr. Terence Taveras M.D. on 07/18/2018 1:37 PM Dictated By: TERENCE TAVERAS MD, MD 1337 Transcribed By: BENNIE on 07/18/18 13 37 COPY TO: BLANCHE MATTHEWS HYDROPULPER Sodium Kxrzo7340-65-57 06:58:00* Test Item Value Reference Range Interpretation Comments Sodium Level (test code = 2951-2) 139 136-145 [facility] CenterPotassium Bfdjo6674-19-95 06:58:00* Test Item Value Reference Range Interpretation Comments Potassium Level (test code = 2823-3) 4.4 3.5-5.1 [facility] CenterChloride Mgoxs1961-43-39 06:58:00* Test Item Value Reference Range Interpretation Comments Chloride Level (test code = 2075-0) 100 98-107 [facility] CenterCarbon Dioxide Ybmoy3517-79-21 06:58:00* Test Item Value Reference Range Interpretation Comments Carbon Dioxide Level (test code = 2028-9) 26 22-29 [facility] CenterAnion Zbq7291-10-25 06:58:00* Test Item Value Reference Range Interpretation Comments Anion Gap (test code = 89311-6) 17.4 8-16 H [facility] CenterBlood Urea Ysilgith3836-35-30 06:58:00* Test Item Value Reference Range Interpretation Comments Blood Urea Nitrogen (test code = 3094-0) 21 7-26 [facility] CenterCreatinine2018-07-03 06:58:00* Test Item Value Reference Range Interpretation Comments Creatinine (test code = 2160-0) 1.11 0.57-1.11 [facility] CenterBUN/Creatinine Gcxcb6432-76-56 06:58:00* Test Item Value Reference Range Interpretation Comments BUN/Creatinine Ratio (test code = 3097-3) 19 6-25 [facility] CenterEstimat Glomerular Filtration Rate 2018-03-23 06:58:00* Test Item Value Reference Range Interpretation Comments Estimat Glomerular Filtration Rate (test code = 20384-2) 52 >60 L Ranges were taken from the National Kidney Disease Education Program and the [facility] Kid[facility] Foundation literature.Reference ranges:60 or greater: Rctxsp76-31 ( for 3 consecutive months): Chronic kidney disease 15 or less: Kidney failureBrooke Army Medical CenterGlucose Vebtv8532-69-19 06:58:00* Test Item Value Reference Range Interpretation Comments Glucose Level (test code = VWO5781) 145 74-118 H [facility] CenterCalcium Lglwr0763-65-42 06:58:00* Test Item Value Reference Range Interpretation Comments Calcium Level (test code = 22957-6) 10.5 8.4-10.2 H [facility] CenterTotal Lvjroqiav1812-22-45 06:58:00* Test Item Value Reference Range Interpretation Comments Total Bilirubin (test code = 1975-2) 0.6 0.2-1.2 [facility] CenterAspartate Amino Transf (AST/SGOT) 2018-03-23 06:58:00* Test Item Value Reference Range Interpretation Comments Aspartate Amino Transf (AST/SGOT) (test code = Aspartate Amino Transf (AST/SGOT)) 30 5-34 [facility] CenterAlanine Aminotransferase (ALT/SGPT) 2018-03-23 06:58:00* Test Item Value Reference Range Interpretation Comments Alanine Aminotransferase (ALT/SGPT) (test code = 1742-6) 26 0-55 [facility] CenterTotal Dwtckpa1701-54-06 06:58:00* Test Item Value Reference Range Interpretation Comments Total Protein (test code = 2885-2) 8.1 6.5-8.1 [facility] CenterAlbumin2018-07-03 06:58:00* Test Item Value Reference Range Interpretation Comments Albumin (test code = 1751-7) 4.3 3.5-5.0 [facility] CenterGlobulin2018-07-03 06:58:00* Test Item Value Reference Range Interpretation Comments Globulin (test code = 05779-7) 3.8 2.3-3.5 H [facility] CenterAlbumin/Globulin Gibuk5005-57-25 06:58:00 * Test Item Value Reference Range Interpretation Comments Albumin/Globulin Ratio (test code = 1759-0) 1.1 0.8-2.0 [facility] CenterAlkaline Zfjorqpdynq0945-32-17 06:58:00* Test Item Value Reference Range Interpretation Comments Alkaline Phosphatase (test code = 6768-6) 151 40-150 H [facility] CenterTriglycerides Rqeng7257-04-08 06:58:00* Test Item Value Reference Range Interpretation Comments Triglycerides Level (test code = 2571-8) 171 0-149 H [facility] CenterCholesterol Nlxso8679-17-79 06:58:00* Test Item Value Reference Range Interpretation Comments Cholesterol Level (test code = 2093-3) 221 0-199 H Less than 200 mg/dL Low Xyxr206 - 239 mg/dL Borderline Xhgz666 m g/dl and greater High Risk [facility] CenterLDL Bnzqwbvhfxr3140-33-01 06:58:00* Test Item Value Reference Range Interpretation Comments LDL Cholesterol (test code = 2089-1) 129 60-130 [facility] CenterHDL Uczeupdagfm8961-54-73 06:58:00* Test Item Value Reference Range Interpretation Comments HDL Cholesterol (test code = 2085-9) 58 40-60 [facility] CenterCholesterol/HDL Wqivm6907-22-86 06:58:00 * Test Item Value Reference Range Interpretation Comments Cholesterol/HDL Ratio (test code = 9830-1) 3.8 3.0-3.6 H [facility] CenterCreatine Kinase SM5844-60-82 06:42:00* Test Item Value Reference Range Interpretation Comments Creatine Kinase MB (test code = 14431-7) 2.00 0-5.0 [facility] CenterTroponin C8688-97-70 06:42:00* Test Item Value Reference Range Interpretation Comments Troponin I (test code = BIQ5020) 0.002 0-0.300 [facility] CenterCreatine Uxxgdt1889-78-89 06:38:00* Test Item Value Reference Range Interpretation Comments Creatine Kinase (test code = 2157-6) 117 29-168 [facility] CenterWhite Blood Zjaun6584-61-99 06:25:00* Test Item Value Reference Range Interpretation Comments White Blood Count (test code = 6690-2) 10.79 4.8-10.8 [facility] CenterRed Blood Jojyw3239-49-24 06:25:00* Test Item Value Reference Range Interpretation Comments Red Blood Count (test code = 789-8) 4.78 3.6-5.1 [facility] CenterHemoglobin2018-07-03 06:25:00* Test Item Value Reference Range Interpretation Comments Hemoglobin (test code = 00260-5) 13.9 12.0-16.0 [facility] CenterHematocrit2018-07-03 06:25:00* Test Item Value Reference Range Interpretation Comments Hematocrit (test code = 4544-3) 42.0 34.2-44.1 [facility] CenterMean Corpuscular Vchhzr7250-88-20 06:25:00* Test Item Value Reference Range Interpretation Comments Mean Corpuscular Volume (test code = 787-2) 87.9 81-99 [facility] CenterMean Corpuscular Heilgnwhpc3630-62-66 06:25:00* Test Item Value Reference Range Interpretation Comments Mean Corpuscular Hemoglobin (test code = 785-6) 29.1 28-32 [facility] CenterMean Corpuscular Hemoglobin Concent 2018-03-23 06:25:00* Test Item Value Reference Range Interpretation Comments Mean Corpuscular Hemoglobin Concent (test code = 786-4) 33.1 31-35 [facility] CenterRed Cell Distribution Kfpqk7299-63-02 06:25:00* Test Item Value Reference Range Interpretation Comments Red Cell Distribution Width (test code = 65783-1) 13.4 11.7 -14.4 [facility] CenterPlatelet Xkjma1710-61-11 06:25:00* Test Item Value Reference Range Interpretation Comments Platelet Count (test code = 777-3) 392 140-360 H [facility] CenterNeutrophils (%) (Auto)2018-03-23 06:25:00 * Test Item Value Reference Range Interpretation Comments Neutrophils (%) (Auto) (test code = 98900-8) 84.4 38.7-80.0 H [facility] CenterLymphocytes (%) (Auto)2018-03-23 06:25:00 * Test Item Value Reference Range Interpretation Comments Lymphocytes (%) (Auto) (test code = 736-9) 9.7 18.0-39.1 L [facility] CenterMonocytes (%) (Auto)2018-03-23 06:25:00* Test Item Value Reference Range Interpretation Comments Monocytes (%) (Auto) (test code = 5905-5) 5.4 4.4-11.3 [facility] (Auto)2018-03-23 06:25:00 * Test Item Value Reference Range Interpretation Comments Eosinophils (%) (Auto) (test code = 713-8) 0.0 0.0-6.0 [facility] (%) (Auto)2018-03-23 06:25:00* Test Item Value Reference Range Interpretation Comments Basophils (%) (Auto) (test code = 706-2) 0.2 0.0-1.0 [facility] CenterIM [facility]ANULOCYTES %2018-03-23 06:25:00* Test Item Value Reference Range Interpretation Comments IM GRANULOCYTES % (test code = IM GRANULOCYTES %) 0.3 0.0- 1.0 [facility] CenterNeutrophils # (Auto)2018-03-23 06:25:00* Test Item Value Reference Range Interpretation Comments Neutrophils # (Auto) (test code = 751-8) 9.1 2.1-6.9 H [facility] CenterLymphocytes # (Auto)2018-03-23 06:25:00* Test Item Value Reference Range Interpretation Comments Lymphocytes # (Auto) (test code = 98768-0) 1.1 1.0-3.2 [facility] CenterMonocytes # (Auto)2018-03-23 06:25:00* Test Item Value Reference Range Interpretation Comments Monocytes # (Auto) (test code = 742-7) 0.6 0.2-0.8 [facility]ophils # (Auto)2018-03-23 06:25:00* Test Item Value Reference Range Interpretation Comments Eosinophils # (Auto) (test code = 711-2) 0.0 0.0-0.4 [facility] # (Auto)2018-03-23 06:25:00* Test Item Value Reference Range Interpretation Comments Basophils # (Auto) (test code = 704-7) 0.0 0.0-0.1 [facility] CenterAbsolute Immature Granulocyte (auto 2018-03-23 06:25:00* Test Item Value Reference Range Interpretation Comments Absolute Immature Granulocyte (auto (yo t code = Absolute Immature Granulocyte (auto) 0.03 0-0.1 [facility] CenterUrine [id number] 14:44:00* Test Item Value Reference Range Interpretation Comments Urine WBC (test code = 5821-4) NONE 0-5 [facility] [id number] 14:44:00* Test Item Value Reference Range Interpretation Comments Urine RBC (test code = 85437-0) 0-5 0-5 [facility] Center[facility] Cobmxgaz2329-39-86 14:44:00* Test Item Value Reference Range Interpretation Comments Urine Bacteria (test code = 74015-2) NONE NONE [facility] Center[facility] Epithelial Ywnrv4019-66-84 14:44:00 * Test Item Value Reference Range Interpretation Comments Urine Epithelial Cells (test code = 59338-1) FEW NONE [facility] Center[facility] Bzmol1678-56-54 14:25:00* Test Item Value Reference Range Interpretation Comments Urine Color (test code = 5778-6) YELLOW YELLOW [facility] Center[facility] Bqivjwv9524-98-90 14:25:00* Test Item Value Reference Range Interpretation Comments Urine Clarity (test code = 79406-3) CLEAR CLEAR [facility] CenterU[facility] Specific Annvneg3155-96-50 14:25:00 * Test Item Value Reference Range Interpretation Comments Urine Specific [place] (test code = 5811-5) 1.020 1.010-1.02 5 [facility] CenterU[facility] [id number] 14:25:00* Test Item Value Reference Range Interpretation Comments Urine pH (test code = 88391-2) 7 5-7 [facility] Leukocyte Svyfycqn7969-34-46 14:25:00* Test Item Value Reference Range Interpretation Comments Urine Leukocyte Esterase (test code = 5799-2) NEGATIVE NEGATIVE [facility] Center[facility] Mimnjgz6419-70-20 14:25:00* Test Item Value Reference Range Interpretation Comments Urine Nitrite (test code = 84825-0) NEGATIVE NEGATIVE [facility] CenterU[facility] Olrercy1040-52-74 14:25:00* Test Item Value Reference Range Interpretation Comments Urine Protein (test code = 5804-0) 2+ NEGATIVE H [facility] CenterU[facility] Glucose (UA)2018-03-22 14:25:00* Test Item Value Reference Range Interpretation Comments Urine Glucose (UA) (test code = 2349-9) NEGATIVE NEGATIVE [facility] Bxqrfhn9817-82-12 14:25:00* Test Item Value Reference Range Interpretation Comments Urine Ketones (test code = 14229-1) NEGATIVE NEGATIVE [facility] Tsgbbacittrz0607-71-26 14:25:00* Test Item Value Reference Range Interpretation Comments Urine Urobilinogen (test code = 77051-0) 0.2 0.2-1 [facility] Center[facility] Gjqieffmd6875-29-15 14:25:00* Test Item Value Reference Range Interpretation Comments Urine Bilirubin (test code = 1978-6) NEGATIVE NEGATIVE [facility] Fvycz4829-01-29 14:25:00* Test Item Value Reference Range Interpretation Comments Urine Blood (test code = 89203-2) TRACE NEGATIVE H [facility] CenterB-Type Natriuretic Vkcyucs7027-20-44 13:12:00* Test Item Value Reference Range Interpretation Comments B-Type Natriuretic Peptide (test code = 78115-9) 71.7 0-100 [facility] CenterCT BRAIN [id number] 13:05:00 [facility] [address] [address] Patient Name: PARK ELLSWORTH MR #: [id number] : 1965 Age/Sex: 52/F Req #: [id number] Adm Physician: Ordered by: JETHRO CHAPMAN MD Report #: [id number] Location: ER Room/Bed: Procedure: [id number] CT/CT BRAIN WO Exam Date: 03/22/18 Exam Time: 1220 REPORT STATUS: S igned Examination: CT BRAIN WITHOUT CONTRAST History:Syncope. Comparis on studies:Head CT performed July 06, 2014. Technique: Axial images we re obtained from the skull base to the vertex. Coronal and sagittal images rec onstructed from the axial data. Intravenous contrast: None Findings: Scalp: No abnormalities. Bones: No fractures, blastic or lytic lesions. Brain sulci: Appropriate for age. Ventricles: Normal in size and configuration . No hydrocephalus. Extra-axial space: No abnormalities. Parenchyma: No abnormal densities. No masses, hemorrhage, or acute or chronic cortical based vascular insults. Sellar/suprasellar region: No abnormalities. Cr aniocervical junction: Patent foramen magnum. No Chiari one malformation. I ncidental findings: Atherosclerotic calcification of the cavernous and suprac linoid internal carotid arteries. Impression: No new or acute intra cranial abnormalities. No change from July 06, 2014. Signed by: Dr. Adriel Enrique M.D. on 03/22/2018 1:10 PM Dictated By: CARLOS ORTIZ MD 1310 Transcribed By: BENNIE on 03/22/18 1310 COPY TO: JETHRO CHAPMAN MD Magnesium Fsxar9521-24-11 12:52:00* Test Item Value Reference Range Interpretation Comments Magnesium Level (test code = 95102-7) 2.1 1.3-2.1 [facility]2018-03-22 12:48:00 [facility] [address] [place] [address] Patient Name: PARK ELLSWORTH MR #: [id number] : 1965 Age/Sex: 52/F Req #: [id number] Adm Physician: Ordered by: JETHRO CHAPMAN MD Report #: [id number] Location: ER Room/Bed: Procedure: [id number] DX/CHEST SINGLE (PORT ABLE) Exam Date: 03/22/18 Exam Time: 1220 REPO RT STATUS: Signed PROCEDURE: CHEST SINGLE (PORTABLE) COMPARISON: 06/16/2016. INDICATIONS: HYPERTENSION FINDINGS: The lungs are well-inflated. No focal airspace consolidation, pleural effusion, or pneumothorax. Tortuous thoracic aorta with otherwise normal cardiomediastinal contour when account ing for portable, AP technique. No acute osseous abnormality. CONCLUSIO N: No acute cardiopulmonary abnormality. Dictated by: Mihai bautista M.D. on 03/22/2018 at 12:48 Electronically approved by: Mihai Ramírez on 03/22/2018 at 12:48 Dictated By: MIHAI SEARS MD [facility] Signed By: MIHAI SEARS MD on 03/22/18 1248 Transcribed By: CHRISTIANO on 11/08 1248 COPY TO: JETHRO CHAPMAN MD Activated Partial Thromboplast Yyzy7720-13-90 12:43:00* Test Item Value Reference Range Interpretation Comments Activated Partial Thromboplast Time (test code = 93844-5) 29.8 23.8-35.5 [facility] CenterProthrombin Dzen4165-51-49 12:42:00* Test Item Value Reference Range Interpretation Comments Prothrombin Time (test code = 5902-2) 11.7 11.9-14.5 L [facility] CenterProthromb Time International Ratio 2018-03-22 12:42:00* Test Item Value Reference Range Interpretation Comments Prothromb Time International Ratio (test code = 6301-6) 0.93 Oral Anticoagulant Therapy INR Values:1. Low Intensity Therapy 1.5 - 2.02 . Moderate Intensity Therapy 2.0 - 3.03. High Intensity Therapy(1) 2.5 - 3. 54. High Intensity Therapy(2) 3.0 - 4.05. Panic Value INR > 5.0 [facility] CenterBedside Eadyazb2410-11-91 19:41:00* Test Item Value Reference Range Interpretation Comments Bedside Glucose (test code = 57524-9) 82 70-120 Meter ID: [id number] [facility] Medical CenterDifferential Total Cells Lpkfjjz1238-61-84 14:35:00* Test Item Value Reference Range Interpretation Comments Differential Total Cells Counted (test code = Kalpana tial Total Cells Counted) 100 [facility] CenterNeutrophils % (Manual)2017-11-06 14:35:00 * Test Item Value Reference Range Interpretation Comments Neutrophils % (Manual) (test code = 33173-9) 70 40-74 [facility] CenterLymphocytes % (Manual)2017-11-06 14:35:00 * Test Item Value Reference Range Interpretation Comments Lymphocytes % (Manual) (test code = 737-7) 10 19-48 L [facility] CenterMonocytes % (Manual)2017-11-06 14:35:00* Test Item Value Reference Range Interpretation Comments Monocytes % (Manual) (test code = 744-3) 13 3.4-9.0 H [facility] CenterEosinophils % (Manual)2017-11-06 14:35:00 * Test Item Value Reference Range Interpretation Comments Eosinophils % (Manual) (test code = 714-6) 4 0-7 [facility] CenterReactive Brfqwzswbon8410-63-05 14:35:00* Test Item Value Reference Range Interpretation Comments Reactive Lymphocytes (test code = 58878-6) 3 [facility] CenterPlatelet Gstybghi1672-71-50 14:35:00* Test Item Value Reference Range Interpretation Comments Platelet Estimate (test code = 64858-1) ADEQUATE [facility] CenterPlatelet Morphology Cyfqnhv7167-66-82 14:35:00* Test Item Value Reference Range Interpretation Comments Platelet Morphology Comment (test code = 09684-3) NORMAL [facility] CenterHowell-[place]ongal[place] Tfgauv2687-41-00 14:35:00* Test Item Value Reference Range Interpretation Comments [place] Bodies (test code = 7793-3) FEW [facility] CenterRed Cell Morphology Kweivlk8550-30-47 14:35:00* Test Item Value Reference Range Interpretation Comments Red Cell Morphology Comment (test code = 6742-1) NORMAL [facility] CenterMAMMOGRAPHY DIG[facility] DX BILAT [facility] [address] [place] [address] Patient Name: PARK ELLSWORTH MR #: [id number] : 1965 Age/Sex: 52/F Req #: [id number] Adm Physician: Ordered by: RAINE ST MD Report #: [id number] Location: MAMMO R oom/Bed: Procedure: [id number] MG/MAMMOGRAPHY DIGITAL DX BILAT Exam Date: 07/03/17 Exam Time: 1050 R EPORT STATUS: Signed #[id number] - [id number] #BILATERAL DIGITAL DIAGNOS TIC MAMMOGRAM WITH CAD: 07/03/2017 Comparison is made to exams dated: 016 mammogram, 09/11/2016 ultrasound, 07/04/2016 mammogram and 07/03/2015 [facility]. Current study contains 6 films. The tissue of both breasts is heterogeneously dense. This may lower the sen sitivity of mammography. Current study was also evaluated with a Computer Aided Detection (CAD) system. Stable appearance of a mass with a biopsy clip in the right breast upper outer aspect. No significant masses, calcification s, or other findings are seen in either breast. Patient complained of bloo dy nipple discharge from the right breast in August 2016 and had mammograms and ultrasound performed at that time which were negative. An MRI was recommen ded at that time if the discharge persisted. IMPRESSION: INCOMPLETE: NE EDS ADDITIONAL IMAGING EVALUATION Patient with a bloody right nipple discharge and negative mammograms. Negative ultrasound in the past. An MRI is recomm ended for the persistent bloody nipple discharge that has persisted off/on fo r the past 9 months. The patient was informed of the need for additional valdemar luation with an MRI. Brian Galindo Jr., D.O. cw/:07/03/2017 15:27:18 Lens Mounter: Alexandra CORBIN(R)(M), [facility] letter sent: Additional Imaging Needed Mammogram BI-RAD S: 0 Indeterminate Dictated By: BRIAN GALINDO DO 1527 Transcribed By: SLIME on 07/03/17 1527 COPY TO: RAINE ST MD
--- NOTE | 2020-07-07 23:12 | NUR ---
SPOKE TO DR. VALDIVIA PT TO FOLLOW UP IN OFFICE ON THURSDAY; INSTRUCTED TO HAVE ER MD PROVIDE RX FOR CLINDAMYCIN.
--- NOTE | 2020-07-07 23:14 | Emergency Department Note ---
History of Present Illnes History of Present Illness Chief Complaint: General Medicine Complaints History of Present Illness This is a 55 year old female presents to ED with pain, redness, edema, minimal amount of purulent drainage to pacemaker surgical site; pacemaker placed on 07/03/2020; . Historian: Patient, Family Member Arrival Mode: Car Onset (how long ago): hour(s) (4) Location: PACE MAKER INSERTION SITE Quality: REDNESS AND MILD DRAINAGE Radiation: Reports non-radiation Severity: mild Onset quality: sudden Duration (how long): hour(s) (4) Timing of current episode: constant Progression: unchanged Chronicity: new Context: Reports recent surgery (PACEMAKER PLACED 07/03/20) Relieving factors: none Exacerbating factors: none Associated symptoms: Reports denies other symptoms Past Medical/Family History Physician Review I have reviewed the patient's past medical and family history. Any updates have been documented here. Past Medical History Recent Fever: No Clinical Suspicion of Infectio: No New/Unexplained Change in Ment: No Past Medical History: Hypertension, Anemia, Other Mental Illness Other Medical History: BREAST LUMPS RECENTLY DISCOVERED, DUE TO FOR BIOPSY SLEEP APNEA Past Surgical History: Cholecysctectomy, Appendectomy, Hysterectomy Other Surgery: R hand carpal tunnel release knee surgery Social History Smoking Cessation: Never Smoker Alcohol Use: None Any Illegal Drug Use: No Family History Family history of heart diseas: No Other Last Tetanus: UNK Review of Systems Review of Systems Constitutional: Reports no symptoms EENTM: Reports no symptoms Cardiovascular: Reports no symptoms Respiratory: Reports no symptoms Gastrointestinal: Reports no symptoms Genitourinary: Reports no symptoms Musculoskeletal: Reports no symptoms Integumentary: Reports as per HPI Neurological: Reports no symptoms Psychological: Reports no symptoms Endocrine: Reports no symptoms Hematological/Lymphatic: Reports no symptoms Review of other systems: All other systems negative Physical Exam Related Data Allergies: Coded Allergies: iodine (Unverified Allergy, Severe, IV IODINE-PASSED OUT, 03/22/18) Sulfa (Sulfonamide Antibiotics) (Verified Allergy, Mild, 03/22/18) lettuce (Verified Allergy, Mild, BLOATING, 03/22/18) barium iodide (Verified Allergy, Unknown, 03/22/18) Uncoded Allergies: [place] LETTUCE (Allergy, Mild, Bloating, 06/16/16) PEANUT BUTTER (Allergy, Mild, Bloating, 06/16/16) BARIUM (Allergy, Unknown, 06/16/16) Triage Vital Signs Vital Signs Date Time Temp Pulse Resp B/P (MAP) Pulse Ox O2 Delivery O2 Flow Rate FiO2 07/07/20 22:10 98.7 69 17 122/72 99 Room Air Vital signs reviewed: Yes Physical Exam CONSTITUTIONAL Constitutional: Present well-developed, Present well-nourished; Absent distressed HENT HENT: Present normocephalic, Present atraumatic, Present oropharynx clear/moist, Present nose normal HENT L/R: Present left ext ear normal, Present right ext ear normal EYES Eyes: Reports PERRL, Reports conjunctivae normal NECK Neck: Present ROM normal PULMONARY Pulmonary: Present effort normal, Present breath sounds normal CARDIOVASCULAR Cardiovascular: Present regular rhythm, Present heart sounds normal, Present capillary refill normal, Present normal rate GASTROINTESTINAL Abdominal: Present soft, Present nontender, Present bowel sounds normal GENITOURINARY Genitourinary: Present exam deferred SKIN MILD ERYTHEMA TO PACEMAKER INSERTION SITE, NO DRAINAGE AT THIS TIME MUSCULOSKELETAL Musculoskeletal: Present ROM normal NEUROLOGICAL Neurological: Present alert, Present oriented x 3, Present no gross motor or sensory deficits PSYCHOLOGICAL Psychological: Present mood/affect normal, Present judgement normal Assessment & Plan Medical Decision Making MDM PT WITH MILD REDNESS AND DRAINAGE FROM SURGICAL WOUND AT PACEMAKER INSERTION SITE I SPOKE VALDIVIA AND HE STATES PLACE PT ON CLINDAMYCIN AND FOLLOW UP IN OFFICE ON THURSDAY Assessment & Plan Final Impression: (1) Surgical wound infection Depart Disposition: HOME, SELF-CARE Last Vital Signs Date Time Temp Pulse Resp B/P (MAP) Pulse Ox O2 Delivery O2 Flow Rate FiO2 07/07/20 22:10 98.7 69 17 122/72 99 Room Air Home Meds Reported Medications Metformin Hcl (METFORMIN HCL) 500 Mg Tablet, 500 MG PO DAILY, #60 TAB 07/11/19 Metoprolol Succinate (METOPROLOL SUCCINATE) 25 Mg Tab.er.24h, 25 MG PO BID 07/11/19 Pantoprazole Sodium* (PROTONIX) 40 Mg Tablet.dr, 40 MG PO DAILY, TAB 07/11/19 Leflunomide (LEFLUNOMIDE) 20 Mg Tablet, 20 MG PO DAILY 07/11/19 Valbenazine Tosylate (Ingrezza) 40 Mg Capsule, MG PO DAILY 07/11/19 Hydrochlorothiazide (HYDROCHLOROTHIAZIDE) 25 Mg Tablet, 25 MG PO DAILY, #30 TAB 07/11/19 Hydroxyzine Hcl (HYDROXYZINE HCL) 25 Mg Tablet, 25 MG PO TID, #30 TAB 07/11/19 Diazepam (DIAZEPAM) 5 Mg Tablet, 5 MG PO TID, #30 TAB 07/11/19 [Vit D3] No Conflict Check, PO DAILY 07/11/19 Calcipotriene (CALCIPOTRIENE) 60 Gm Cream..g., TOP DAILY 07/11/19 Atorvastatin Calcium (ATORVASTATIN CALCIUM) 20 Mg Tablet, 20 MG PO HS, #30 TAB 07/11/19 Aspirin (ASPIR 81) 81 Mg Tablet.dr, 81 MG PO DAILY 07/11/19 Allopurinol (ALLOPURINOL) 100 Mg Tablet, 100 MG PO DAILY, #30 TAB 07/11/19 Fluticasone Propionate (FLUTICASONE PROPIONATE) 16 Gm [place].susp, NA DAILY 09/29/18 Valsartan (DIOVAN) 160 Mg Tab, 320 MG PO BID, #60 TAB 03/23/18 Amlodipine Besylate (AMLODIPINE BESYLATE) 10 Mg Tablet, 5 MG PO DAILY, #30 TAB 03/23/18 Levothyroxine Sodium (SYNTHROID) 25 Mcg Tablet, 50 MCG PO DAILY, #30 TAB 11/06/17 Colestipol Hcl,Micronized (COLESTIPOL HCL) 1 Gm Tablet, 1 GM PO DAILY, #30 TAB 06/16/16 Lamotrigine (LAMOTRIGINE) 200 Mg Tablet, 200 MG PO BID 02/26/16 Quetiapine Fumarate (SEROQUEL) 50 Mg Tablet, 50 MG PO HS 02/26/16 UZAIR HENRIQUEZ MD Jul 07, 2020 23:14
== END 2020-07-07 23:11 | disposition home or self-care (01) ==
LOC: ER 22:06
DX: T81.49XA Infection following a procedure, other surgical site, initial encounter (principal); Z95.0 Presence of cardiac pacemaker; I10 Essential (primary) hypertension; D64.9 Anemia, unspecified; G47.30 Sleep apnea, unspecified
CPT/HCPCS: 99282

== ENCOUNTER 2021-11-06 00:56 | Observation (INO) | payer BC ==
[2021-11-06] VITALS (9 sets, daily range): BP systolic 108–126; BP diastolic 57–115
[~2021-11-06] VITALS: Ht 165.1 cm; Wt 89.9 kg
[2021-11-06] MEDS ORDERED: DEXTROSE 50% SYRINGE 50 ML IV PRN (02:15)
[2021-11-06] MEDS: Morphine 2mg Syringe 2 MG/ML SYR IV PRN ×4 (02:41→21:09)
[2021-11-06 03:12] LABS: CREATINE KINASE MB 0.7 ng/mL (0-5.0)
[2021-11-06] MEDS ORDERED: PROPRANOLOL HCL10 MG PO (05:14)
[2021-11-06] MEDS ORDERED: VENLAFAXINE HCL75 M2 PO (05:14)
[2021-11-06] MEDS ORDERED: INGREZZA80 MG PO (05:14)
[2021-11-06] MEDS ORDERED: SEROQUEL25 MG PO (05:14)
[2021-11-06] MEDS ORDERED: BENICAR20 MG PO (05:14)
[2021-11-06] MEDS ORDERED: MINIPRESS1 MG PO (05:14)
[2021-11-06] MEDS ORDERED: OMEGA 3 1,0001 EACH PO (05:14)
[2021-11-06] MEDS ORDERED: GLIMEPIRIDE2 MG PO (05:14)
[2021-11-06] MEDS ORDERED: HYDRALAZINE HCL50 MG PO (05:14)
[2021-11-06] MEDS ORDERED: LANTUS 3ML100 UNITS/ SQ (05:16)
[2021-11-06 10:58] LABS: CREATINE KINASE MB 0.7 ng/mL (0-5.0)
[2021-11-06] MEDS: INSULIN REGULAR, HUMAN 100 UNIT/1 ML SQ SCH ×3 (12:00→20:56)
[2021-11-06] MEDS: PROPRANOLOL HCL 10 MG TAB PO SCH (16:25)
[2021-11-06] MEDS: LAMOTRIGINE 100 MG TAB PO SCH (16:25)
[2021-11-06] MEDS: GLIMEPIRIDE 2 MG TAB PO SCH (16:25)
[2021-11-06] MEDS: VALBENAZINE TOSYLATE PO SCH (20:55)
[2021-11-06] MEDS: ATORVASTATIN 20 MG TAB PO SCH (20:55)
[2021-11-06] MEDS: INSULIN GLARGINE 100 UNITS/ML VIAL SQ SCH (20:56)
[2021-11-06] MEDS: PRAZOSIN HCL 1 MG CAP PO SCH (20:57)
[2021-11-06] MEDS: QUETIAPINE FUMARATE 25 MG TAB PO SCH (20:57)
[2021-11-06] MEDS ORDERED: HYDRALAZINE HCL 25 MG TAB PO SCH (21:00)
[2021-11-07] VITALS (9 sets, daily range): BP systolic 97–151; BP diastolic 57–83
[2021-11-07 06:37] LABS: CREATININE, SERUM 1.24 mg/dL (0.57-1.11)
[2021-11-07] MEDS: INSULIN REGULAR, HUMAN 100 UNIT/1 ML SQ SCH ×4 (07:30→20:01)
[2021-11-07] MEDS: PROPRANOLOL HCL 10 MG TAB PO SCH ×2 (08:43→17:01)
[2021-11-07] MEDS ORDERED: IOPAMIDOL 370 MG/ML 200 ML INFUS..BTL INJ ONE (08:47)
[2021-11-07] MEDS ORDERED: SODIUM CHLORIDE 0.9% 100 ML ONE (08:47)
[2021-11-07] MEDS ORDERED: SODIUM CHLORIDE 0.9% 250ML 250 ML ONE (10:08)
[2021-11-07] MEDS ORDERED: NITROGLYCERIN 0.4 MG SUBL ONE (10:22)
[2021-11-07] MEDS ORDERED: METOPROLOL TARTRATE INJ 1 MG/ML VIAL ONE (10:22)
[2021-11-07] MEDS: GLIMEPIRIDE 2 MG TAB PO SCH ×2 (12:35→17:01)
[2021-11-07] MEDS: ASPIRIN 81 MG CHEW TAB PO SCH (12:35)
[2021-11-07] MEDS: LAMOTRIGINE 100 MG TAB PO SCH ×2 (12:36→17:01)
[2021-11-07] MEDS: OMEGA 3 POLYUNSAT FATTY ACIDS 1000 MG SOFTGEL PO SCH (12:36)
[2021-11-07] MEDS: OLMESARTAN 20 MG TAB PO SCH (12:36)
[2021-11-07] MEDS: HYDROCHLOROTHIAZIDE 25 MG TAB PO SCH (12:36)
[2021-11-07] MEDS: VENLAFAXINE HCL 75 MG CAPCR PO SCH (12:36)
[2021-11-07] MEDS: AMLODIPINE BESYLATE 5 MG TAB PO SCH (12:36)
[2021-11-07] MEDS: Morphine 2mg Syringe 2 MG/ML SYR IV PRN (19:41)
[2021-11-07] MEDS: INSULIN GLARGINE 100 UNITS/ML VIAL SQ SCH (20:01)
[2021-11-07] MEDS: QUETIAPINE FUMARATE 25 MG TAB PO SCH (20:30)
[2021-11-07] MEDS: PRAZOSIN HCL 1 MG CAP PO SCH (20:30)
[2021-11-07] MEDS: VALBENAZINE TOSYLATE PO SCH (20:30)
[2021-11-07] MEDS: ATORVASTATIN 20 MG TAB PO SCH (20:30)
[2021-11-08 05:21] VITALS: BP 148/77
[2021-11-08] MEDS: INSULIN REGULAR, HUMAN 100 UNIT/1 ML SQ SCH ×2 (07:30→12:04)
[2021-11-08 07:48] VITALS: BP 124/69
[2021-11-08] MEDS: GLIMEPIRIDE 2 MG TAB PO SCH ×2 (08:00→10:10)
[2021-11-08 08:05] VITALS: BP 124/69
[2021-11-08] MEDS: PROPRANOLOL HCL 10 MG TAB PO SCH ×2 (08:43→10:10)
[2021-11-08] MEDS: LAMOTRIGINE 100 MG TAB PO SCH ×2 (08:44→10:10)
[2021-11-08] MEDS ORDERED: ACETAMINOPHEN 1000 MG/100 ML IV ONE (09:15)
[2021-11-08] MEDS ORDERED: SODIUM CHLORIDE 0.9% 250ML 250 ML ONE (09:18)
[2021-11-08] MEDS: OLMESARTAN 20 MG TAB PO SCH (10:00)
[2021-11-08] MEDS: AMLODIPINE BESYLATE 5 MG TAB PO SCH (10:00)
[2021-11-08] MEDS: HYDROCHLOROTHIAZIDE 25 MG TAB PO SCH (10:00)
[2021-11-08] MEDS: OMEGA 3 POLYUNSAT FATTY ACIDS 1000 MG SOFTGEL PO SCH (10:00)
[2021-11-08] MEDS: VENLAFAXINE HCL 75 MG CAPCR PO SCH (10:00)
[2021-11-08] MEDS: ASPIRIN 81 MG CHEW TAB PO SCH (10:10)
[2021-11-08 11:27] VITALS: BP 121/66
== END 2021-11-08 12:45 | disposition home or self-care (01) ==
LOC: INTOOBSV 01:22 → MED/SURG3 01:22
DX: I25.110 Atherosclerotic heart disease of native coronary artery with unstable angina pectoris (principal); R07.89 Other chest pain; I10 Essential (primary) hypertension; E78.5 Hyperlipidemia, unspecified; E66.9 Obesity, unspecified; Z68.33 Body mass index [BMI] 33.0-33.9, adult; E11.9 Type 2 diabetes mellitus without complications; Z79.4 Long term (current) use of insulin; F32.9 Major depressive disorder, single episode, unspecified; Z20.822 Contact with and (suspected) exposure to COVID-19
CPT/HCPCS: 36415 ×3; 75574; 82550; 82553; 82565; 82948 ×3; 84484; 84520; G0378 ×3; J0131; J1815; J1817; J2270 ×2; J7050 ×3; Q9967; U0002

== ENCOUNTER → 2022-05-31 | Day surgery (SDC) | payer BC ==
[2022-05-28 14:41] LABS: BASOPHILS % 0.4 % (0.0-1.0); EOSINOPHILS # (AUTO) 0.3 (0.0-0.4); EOSINOPHILS % 4.5 % (0.0-6.0); HEMATOCRIT 35.9 % (34.2-44.1); HEMOGLOBIN 11.7 g/dL (12.0-16.0); LYMPHOCYTES # (AUTO) 2.2 (1.0-3.2); LYMPHOCYTES % 29.7 % (18.0-39.1); MEAN CORPUSCULAR HEMOGLOBIN 29.6 pg (28-32); MEAN CORPUSCULAR HGB CONC 32.6 g/dL (31-35); MEAN CORPUSCULAR VOLUME 90.9 fL (81-99); MONOCYTES # (AUTO) 0.6 (0.2-0.8); MONOCYTES % 8.7 % (4.4-11.3); NEUTROPHILS # (AUTO) 4.1 (2.1-6.9); NEUTROPHILS % 56.3 % (38.7-80.0); PLATELET COUNT 327 x10e3/uL (140-360); RED BLOOD COUNT 3.95 x10e6/uL (3.6-5.1)
[~2022-05-31] MED LIST changes: +BENICAR20 MG PO; +DIAZEPAM10 MG PO; +FENTANYL CITRATE/PF 100MCG/2 ML INJ ONE; +GLIMEPIRIDE2 MG PO; +HYDROXYZIN10 MG/5 ML PO; +HYOSCYAMINE SULFATE 0.5 MG/ML INJ ONE; +INGREZZA80 MG PO; +LANTUS 3ML100 UNITS/ SQ; +MIDAZOLAM HCL 2 MG/2 ML VIAL ONE; +MINIPRESS1 MG PO; +OLMESARTAN-HCT1 EAC2 PO; +OMEGA 3 1,0001 EACH PO; +PROPOFOL IV EMULSION 10 MG/ML 20 ML VIAL ONE; +PROPRANOLOL HCL10 MG PO; +VENLAFAXINE HCL75 M2 PO
[2022-05-31 10:00] VITALS: BP 142/72
== END | disposition home or self-care (01) ==
LOC: OR 07:05 → EEVIPCON 08:30
PROVIDERS: ATTEND Internal Medicine Gastroenterology
DX: K20.90 Esophagitis, unspecified without bleeding (principal); Z86.010 Personal history of colon polyps; K31.7 Polyp of stomach and duodenum; K29.70 Gastritis, unspecified, without bleeding; K21.9 Gastro-esophageal reflux disease without esophagitis; K64.8 Other hemorrhoids; Z71.3 Dietary counseling and surveillance; G47.33 Obstructive sleep apnea (adult) (pediatric); E11.9 Type 2 diabetes mellitus without complications; I10 Essential (primary) hypertension; F31.9 Bipolar disorder, unspecified; F41.9 Anxiety disorder, unspecified; Z88.6 Allergy status to analgesic agent; Z88.2 Allergy status to sulfonamides; Z01.810 Encounter for preprocedural cardiovascular examination; Z01.812 Encounter for preprocedural laboratory examination; Z79.82 Long term (current) use of aspirin; Z79.4 Long term (current) use of insulin; Z79.899 Other long term (current) drug therapy; Z68.29 Body mass index [BMI] 29.0-29.9, adult; Z86.16 Personal history of COVID-19
CPT/HCPCS: 36415 ×2; 43239; 43450; 45378; 82948; 85025; 93005; C9113; J1980; J2250; J2704; J3010

== ENCOUNTER 2024-09-02 07:56 | Outpatient (RCR) | payer BC ==
[~2024-09-02 07:56] MED LIST changes: +ACETAMINOPHEN-1 EAC4 PO; +ASPIRIN81 MG PO; +ATIVAN0.5 MG PO; +CLOBETASOL1 EA/15 GM PO; +FAMOTIDINE20 MG PO; -FENTANYL CITRATE/PF 100MCG/2 ML INJ ONE; -HYOSCYAMINE SULFATE 0.5 MG/ML INJ ONE; +LOSARTAN POTASS25 MG PO; -MIDAZOLAM HCL 2 MG/2 ML VIAL ONE; -PROPOFOL IV EMULSION 10 MG/ML 20 ML VIAL ONE; +VITAMIN D250 MCG PO
== END 2024-09-20 ==
LOC: OT 07:56
PROVIDERS: ATTEND Plastic Surgery
DX: Z86.73 Personal history of transient ischemic attack (TIA), and cerebral infarction without residual deficits (principal); M24.542 Contracture, left hand

== ENCOUNTER → 2024-10-29 | Day surgery (SDC) | payer BC ==
[2024-10-19 15:55] LABS: BASOPHILS # (AUTO) 0.1 (0.0-0.1); BASOPHILS % 0.6 % (0.0-1.0); EOSINOPHILS # (AUTO) 0.2 (0.0-0.4); EOSINOPHILS % 1.6 % (0.0-6.0); HEMATOCRIT 41.6 % (34.2-44.1); HEMOGLOBIN 12.6 g/dL (12.0-16.0); LYMPHOCYTES # (AUTO) 1.9 (1.0-3.2); LYMPHOCYTES % 19.4 % (18.0-39.1); MEAN CORPUSCULAR HEMOGLOBIN 29.2 pg (28-32); MEAN CORPUSCULAR HGB CONC 30.3 g/dL (31-35); MEAN CORPUSCULAR VOLUME 96.3 fL (81-99); MONOCYTES # (AUTO) 0.8 (0.2-0.8); MONOCYTES % 8.4 % (4.4-11.3); NEUTROPHILS # (AUTO) 6.7 (2.1-6.9); NEUTROPHILS % 69.8 % (38.7-80.0); PLATELET COUNT 313 x10e3/uL (140-360); RED BLOOD COUNT 4.32 x10e6/uL (3.6-5.1); RED CELL DISTRIBUTION WIDTH 13.9 % (11.7-14.4); WHITE BLOOD COUNT 9.59 x10e3/uL (4.8-10.8)
[2024-10-19 16:20] LABS: INR 0.81; PROTHROMBIN TIME 11.7 seconds (11.9-14.5)
[2024-10-19 16:21] LABS: PARTIAL THROMBOPLASTIN TIME 28.8 seconds (23.8-35.5)
[2024-10-19 16:24] LABS: CALCIUM 9.9 mg/dL (8.4-10.2); CREATININE, SERUM 1.57 mg/dL (0.57-1.11)
[~2024-10-29] MED LIST changes: +AUSTEDO PO; +DICYCLOMINE HCL20 MG PO; +DYMISTA NASAL S23 GM INH; +FENTANYL CITRATE/PF 100MCG/2 ML INJ ONE; +FLONASE ALLERG9.9 ML INH; +HAIR, SKIN & N1 EACH PO; +INDERAL XL80 MG PO; +INSULIN LI100 UNIT/1 SC; +JARDIANCE25 MG PO; +KETAMINE 50MG/5ML SYR ONE; +LATUDA40 MG PO; +LIDOCAINE HCL 2% LOCAL INJ 5 ML SDV VIAL INJ ONE; +METOPROLOL TART25 MG PO; +ONDANSETRON HCL INJ 2MG/ML 2ML 2 MG/ML VIAL ONE; +PRAZOSIN HCL2 MG PO; +PROPOFOL IV EMULSION 10 MG/ML 20 ML VIAL ONE; +SERTRALINE HCL100 MG PO; +SKYRIZI150 MG/1 M INJ; +TOPAMAX100 MG PO
[2024-10-29] MEDS: LACTATED RINGER'S 1,000 ML ONE (06:50)
[2024-10-29] MEDS: SODIUM CHLORIDE 0.9% 1000ML 1,000 ML ONE (06:55)
[2024-10-29 08:17] VITALS: TEMP 97.8
[2024-10-29 08:45] VITALS: BP 156/94; PULSE 60; RESP 18; O2SAT 99
== END | disposition home or self-care (01) ==
LOC: OR 06:00
PROVIDERS: ATTEND Internal Medicine Gastroenterology
DX: K20.90 Esophagitis, unspecified without bleeding (principal); K31.7 Polyp of stomach and duodenum; K29.70 Gastritis, unspecified, without bleeding; K31.89 Other diseases of stomach and duodenum; K44.9 Diaphragmatic hernia without obstruction or gangrene; K21.9 Gastro-esophageal reflux disease without esophagitis; R19.5 Other fecal abnormalities; R19.7 Diarrhea, unspecified; Z71.3 Dietary counseling and surveillance; G47.33 Obstructive sleep apnea (adult) (pediatric); I10 Essential (primary) hypertension; E11.9 Type 2 diabetes mellitus without complications; N28.9 Disorder of kidney and ureter, unspecified; E66.9 Obesity, unspecified; I69.354 Hemiplegia and hemiparesis following cerebral infarction affecting left non-dominant side; F41.9 Anxiety disorder, unspecified; F31.9 Bipolar disorder, unspecified; Z88.6 Allergy status to analgesic agent; Z88.2 Allergy status to sulfonamides; Z91.048 Other nonmedicinal substance allergy status; Z01.812 Encounter for preprocedural laboratory examination; Z79.84 Long term (current) use of oral hypoglycemic drugs; Z79.4 Long term (current) use of insulin; Z79.899 Other long term (current) drug therapy; Z68.31 Body mass index [BMI] 31.0-31.9, adult; Z87.19 Personal history of other diseases of the digestive system; Z86.16 Personal history of COVID-19; Z95.0 Presence of cardiac pacemaker
CPT/HCPCS: 36415; 43239; 43251; 43450; 80048; 85025; 85610; 85730; J2003; J2405; J2470; J2704; J3010; J7030